=== PATIENT | female | born 1940 | race Caucasian/White ===

== ENCOUNTER 2017-10-10 18:19 | Emergency (ER) | payer MEDICARE ==
[2017-10-10] MEDS ORDERED: DIPH,PERTUS(ACELL)TETVAC-LF 0.5 ML VIAL IM ONE (19:20)
[2017-10-10] MEDS ORDERED: CEPHALEXIN 500 MG CAP PO STA (20:03)
--- NOTE | 2017-10-10 20:08 | ED ---
Wound/Laceration HPI - General Chief Complaint: Wound/Laceration Stated Complaint: Dog scratch Time Seen by Provider: 10/10/17 18:36 Source: patient, RN notes reviewed Mode of arrival: wheelchair Limitations: no limitations - History of Present Illness Initial Comments: This is a 77-year-old female who presents to the emergency department with chief complaint of dog scratch. Patient states that she was sitting in her recliner when her dog got excited and jumped up onto her. She states that when he jumped up, his nail scratched her right lower leg. She states that her dog is fully vaccinated. She denies any other injuries or trauma. States that she does not believe she is up-to-date with her tetanus vaccination. Denies fever, chills, chest pain, shortness of breath, abdominal pain, nausea or vomiting, numbness or tingling, headache or vision changes. - Related Data Previous Rx's Medication Instructions Recorded Cephalexin [Keflex] 500 mg PO Q12HR #20 cap 10/10/17 Allergies Allergy/AdvReac Type Severity Reaction Status Date / Time clavulanic acid Allergy Unknown Verified 10/10/17 18:46 metformin Allergy Unknown Verified 10/10/17 18:46 NSAIDS (Non-Steroidal Allergy Unknown Verified 10/10/17 18:46 Anti-Inflamma Penicillins Allergy Unknown Verified 10/10/17 18:46 Quinolones Allergy Unknown Verified 10/10/17 18:46 Review of Systems ROS Statement: Those systems with pertinent positive or pertinent negative responses have been documented in the HPI. ROS Other: All systems not noted in ROS Statement are negative. Past Medical History Past Medical History: Heart Failure, COPD, Diabetes Mellitus, Hypertension, Sleep Apnea/CPAP/BIPAP History of Any Multi-Drug Resistant Organisms: None Reported Past Surgical History: Back Surgery, Heart Catheterization With Stent, Joint Replacement, Orthopedic Surgery Additional Past Surgical History / Comment(s): bilateral hip replacement, right knee replacement, two back surgeries, Past Psychological History: No Psychological Hx Reported Smoking Status: Former smoker Past Alcohol Use History: Occasional Past Drug Use History: None Reported General Exam - General Exam Comments Initial Comments: General: Awake and alert, well-developed; in no apparent distress. HEENT: Head atraumatic, normocephalic. Pupils are equal, round and reactive to light. Extraocular movements intact. Oropharynx moist without erythema or exudate. Neck: Supple. Normal ROM. Cardiovascular: Regular rate and rhythm. No murmurs, rubs or gallops. Chest symmetrical. Respiratory: Lungs clear to auscultation bilaterally. No wheezes, rales or rhonchi. Normal respiratory effort with no use of accessory muscles. Musculoskeletal: Normal range of motion of right lower extremity. Approximately 9 cm [id number] laceration to the medial aspect of the right distal arredondo. Sensation is intact. Bleeding is controlled. Pedal pulses are 2+ equal and palpable bilaterally. Skin: Dailey, warm and dry without rashes. Neurological: Alert and oriented x3. CN II-XII grossly intact. Speech is fluent and answers are appropriate. No focal neuro deficits. Psychiatric: Normal mood and affect. No overt signs of depression or anxiety noted. Limitations: no limitations Course Vital Signs 10/10/17 18:25 Temperature 97.3 F L Pulse Rate 61 Respiratory 20 Rate Blood Pressure 143/63 O2 Sat by Pulse 95 Oximetry Procedures - Laceration Laceration #1 Consent Obtained: verbal consent Indication: laceration Site: lower extremity (right medial distal arredondo) Size (cm): 9 Description: flap Depth: simple, single layer Anesthetic Used: lidocaine 1% Anesthesia Technique: local infiltration Amount (mls): 8 Pre-repair: wound explored, irrigated extensively, deep structures intact Type of Sutures: nylon Size of Sutures: 4-0 Number of Sutures: 11 Technique: simple, interrupted (10), horizontal mattress (10) Patient Tolerated Procedure: well, no complications Medical Decision Making - Medical Decision Making This is a 77-year-old female who presented to the emergency department with chief complaint of right lower extremity injury caused by a dog scratch. Patient states that her dog got excited and jumped up on her at approximately 5: 30 this evening. His nail scratched her right arredondo and patient sustained an approximately 9 cm laceration. Bleeding is controlled. 11 sutures were placed and patient tolerated well without complication. This case was discussed with attending physician, Dr. Reno who also evaluated the patient. Patient will be started on Keflex antibiotics. She was made up-to-date with her tetanus vaccination. Recommended removal of sutures in 14 days and to keep the wound clean, dry and covered. Patient is in agreement with plan and voices understanding. She is in no acute distress and will be discharged home at this time. All questions answered. Disposition Clinical Impression: Dog scratch, Laceration of right lower extremity Disposition: HOME SELF-CARE Condition: Good Instructions: Laceration (ED), Care For Your Stitches (ED) Additional Instructions: Please have sutures removed in 2 weeks. Please keep wound clean, dry and covered. Please take medications as prescribed. Please follow up with primary care provider within 1-2 days. Return to emergency department if symptoms should worsen or any concerns arise. Prescriptions: Cephalexin [Keflex] 500 mg PO Q12HR #20 cap Is patient prescribed a controlled substance at d/c from ED?: No Referrals: Katlin Ruffin MD [Primary Care Provider] - 1-2 days Time of Disposition: 20:05
[2017-10-10 20:18] VITALS: BP 130/83; PULSE 69; RESP 18; TEMP 98
== END 2017-10-10 20:17 | disposition home or self-care (01) ==
LOC: EC 18:19
DX: S81.811A Laceration without foreign body, right lower leg, initial encounter (principal); G47.30 Sleep apnea, unspecified; Z99.89 Dependence on other enabling machines and devices; Z23 Encounter for immunization; Z87.891 Personal history of nicotine dependence; Z96.643 Presence of artificial hip joint, bilateral; Z96.651 Presence of right artificial knee joint; Z88.0 Allergy status to penicillin; Z88.1 Allergy status to other antibiotic agents; Z88.6 Allergy status to analgesic agent; Z88.8 Allergy status to other drugs, medicaments and biological substances; W54.1XXA Struck by dog, initial encounter
CPT/HCPCS: 12004; 90471; 90715; 99282

== ENCOUNTER → 2017-10-26 | Outpatient (CLI) | payer MEDICARE ==
--- NOTE | 2017-10-27 08:34 | CT ---
EXAMINATION TYPE: CT chest wo con DATE OF EXAM: 10/26/2017 COMPARISON: NONE HISTORY: Shortness of breath and cough. CT DLP: 721 mGycm, Automated exposure control for dose reduction was used. CONTRAST: Performed injected with 0 mL of Isovue 300. TECHNIQUE: Axial images were obtained at 5 mm thick sections. Reconstructed images are reviewed on [employer] computer in the coronal plane. FINDINGS: Portion of the thyroid visualized is normal. Some pneumonitis changes within the lingula. Recommend follow-up CT chest in 6 months. Some linear op acity is through the anterior lingula. Suspicious consolidations or masses are not otherwise identifi ed. A small 0.3 cm calcified granulomas in the posterior right midlung. Series 4 image 38. No enlarged mediastinal or hilar adenopathy is evident. The ascending aorta diameter at the level o f the main pulmonary artery is 3.4 cm. The main pulmonary artery diameter at the bifurcation is 2.7 cm. Coronary artery calcification is present. Limited CT sections are obtained through the upper abdomen. Abdomen is essentially unremarkable. Note is made of some calcified granuloma within the spleen. Pancreas atrophy to mild degree may be presen t. Vascular calcification is within the kidneys. There may be a nonobstructing 0.5 cm mid right renal stone. IMPRESSIONS: 1. Pneumonitis change within the lingula. Follow-up chest CT in 6 months is recommended. 2. Small suspected granuloma posterior right lung.
== END | disposition home or self-care (01) ==
LOC: RADCTMAIN 18:22
PROVIDERS: ATTEND Internal Medicine Pulmonary Disease
DX: J18.9 Pneumonia, unspecified organism (principal)
CPT/HCPCS: 71250

== ENCOUNTER 2018-02-17 10:13 | Emergency (ER) | payer MEDICARE ==
[2018-02-17 10:23] VITALS: TEMP 98
[2018-02-17] MEDS ORDERED: ALBUTEROL NEBULIZED 2.5 MG/3 ML INHALATION STA (10:32)
[2018-02-17] MEDS ORDERED: IPRATROPIUM 0.5 MG/2.5 ML NEBU INHALATION STA (10:32)
[2018-02-17] MEDS ORDERED: methylPREDNISolone SOD SUCCI 125 MG/2 ML VIAL IV STA (10:32)
--- NOTE | 2018-02-17 10:35 | ED ---
General Adult HPI - General Chief complaint: Shortness of Breath Stated complaint: SOB Time Seen by Provider: 02/17/18 10:26 Source: patient, RN notes reviewed, old records reviewed Mode of arrival: ambulatory Limitations: no limitations - History of Present Illness Initial comments: 78 yo female presenting for evaluation of cough and dyspnea. Patient has history of both COPD and congestive heart failure. She states for proximally the past one week she has had worsening cough productive of white and yellow sputum. Denies significant central chest pain. Denies fever or chills. She was scheduled to see her rubber off on Tuesday but was unable to make this appointment. She states her symptoms have steadily worsened over the past week. Denies lower extremity pain or swelling. Denies abdominal pain nausea or vomiting. - Related Data Home Medications Medication Instructions Recorded Confirmed ALPRAZolam [Xanax] 0.5 mg PO BID PRN 02/17/18 02/17/18 Aclidinium [place] [Tudorza 1 puff INHALATION RT-BID 02/17/18 02/17/18 Pressair] Albuterol Inhaler [Ventolin Hfa 2 puff INHALATION RT-Q6H PRN 02/17/18 02/17/18 Inhaler] Budesonide/Formoterol Fumarate 2 puff INHALATION RT-BID 02/17/18 02/17/18 [Symbicort 160-4.5 Mcg Inhaler] Clopidogrel [Plavix] 75 mg PO DAILY 02/17/18 02/17/18 Furosemide [Lasix] 40 mg PO BID 02/17/18 02/17/18 Lisinopril [Zestril] 10 mg PO DAILY 02/17/18 02/17/18 Montelukast [Singulair] 10 mg PO HS 02/17/18 02/17/18 Omeprazole 20 mg PO DAILY 02/17/18 02/17/18 Rosuvastatin Calcium [Crestor] 40 mg PO DAILY 02/17/18 02/17/18 amLODIPine [Norvasc] 5 mg PO HS 02/17/18 02/17/18 Previous Rx's Medication Instructions Recorded Azithromycin [Zithromax Z-pack] 0 mg PO DIRECTED #6 tab 02/17/18 predniSONE 50 mg PO DAILY #5 tab 02/17/18 Allergies Allergy/AdvReac Type Severity Reaction Status Date / Time clavulanic acid Allergy Unknown Verified 02/17/18 10:23 metformin Allergy Unknown Verified 02/17/18 10:23 NSAIDS (Non-Steroidal Allergy Unknown Verified 02/17/18 10:23 Anti-Inflamma Penicillins Allergy Unknown Verified 02/17/18 10:23 Quinolones Allergy Unknown Verified 02/17/18 10:23 Review of Systems ROS Statement: Those systems with pertinent positive or pertinent negative responses have been documented in the HPI. ROS Other: All systems not noted in ROS Statement are negative. Past Medical History Past Medical History: Heart Failure, COPD, Diabetes Mellitus, Hypertension, Sleep Apnea/CPAP/BIPAP History of Any Multi-Drug Resistant Organisms: None Reported Past Surgical History: Back Surgery, Heart Catheterization With Stent, Joint Replacement, Orthopedic Surgery Additional Past Surgical History / Comment(s): bilateral hip replacement, right knee replacement, two back surgeries, Past Psychological History: Anxiety Smoking Status: Former smoker Past Alcohol Use History: Occasional Past Drug Use History: None Reported General Exam Limitations: no limitations General appearance: alert, in no apparent distress Head exam: Present: atraumatic, normocephalic Eye exam: Present: normal appearance, PERRL Neck exam: Present: normal inspection Respiratory exam: Present: respiratory distress (mild), wheezes, decreased breath sounds, prolonged expiratory Cardiovascular Exam: Present: regular rate, normal rhythm GI/Abdominal exam: Present: soft. Absent: distended, tenderness Extremities exam: Present: normal inspection, normal capillary refill. Absent: pedal edema, calf tenderness Neurological exam: Present: alert, oriented X3, CN II-XII intact. Absent: motor sensory deficit Psychiatric exam: Present: normal affect, normal mood Skin exam: Present: warm, dry, intact. Absent: cyanosis, diaphoretic Course Vital Signs 02/17/18 02/17/18 02/17/18 10:20 11:08 11:23 Temperature 98 F Pulse Rate 63 66 68 Respiratory 22 Rate Blood Pressure 131/67 O2 Sat by Pulse 92 L Oximetry 02/17/18 12:23 Temperature Pulse Rate 87 Respiratory 20 Rate Blood Pressure 142/77 O2 Sat by Pulse 96 Oximetry - Reevaluation(s) Reevaluation #1: 02/17/18 12:32 On reevaluation, patient states she is significantly better. She is eager for discharge. EKG Findings - EKG Comments: EKG Findings:: EKG: Sinus rhythm with sinus arrhythmia no ST segment elevation, nonspecific ST segment depression in the lateral precordium, T waves are upright rate of 74, FL interval 152, QRS duration 76, QTC 468 Medical Decision Making - Medical Decision Making 78 yo female presenting with cough and dyspnea. Patient's symptoms have been progressive over one week. Workup in the emergency department reveals normal CBC, normal CMP, troponin and BNP are negative. Chest x-ray is negative for focal pneumonia. On reevaluation, patient is feeling better, she is eager for discharge. She is offered observation for continued treatment of COPD exacerbation. She declines. She prefers outpatient treatment and will return with worsening or changing symptoms. - Lab Data Result diagrams: 02/17/18 10:50 02/17/18 10:50 Lab Results 02/17/18 02/17/18 02/17/18 Range/Units 10:50 10:50 10:50 WBC 4.5 (3.8-10.6) k/uL RBC 5.14 (3.80-5.40) m/uL Hgb 15.1 (11.4-16.0) gm/dL Hct 46.5 H (34.0-46.0) % MCV 90.5 (80.0-100.0) fL MCH 29.4 (25.0-35.0) pg MCHC 32.5 (31.0-37.0) g/dL RDW 14.2 (11.5-15.5) % Plt Count 320 (150-450) k/uL Neutrophils % 68 % Lymphocytes % 18 % Monocytes % 5 % Eosinophils % 5 % Basophils % 1 % Neutrophils # 3.0 (1.3-7.7) k/uL Lymphocytes # 0.8 L (1.0-4.8) k/uL Monocytes # 0.2 (0-1.0) k/uL Eosinophils # 0.2 (0-0.7) k/uL Basophils # 0.0 (0-0.2) k/uL PT (9.0-12.0) sec INR (<1.2) APTT (22.0-30.0) sec Sodium 142 (137-145) mmol/L Potassium 3.7 (3.5-5.1) mmol/L Chloride 106 (98-107) mmol/L Carbon Dioxide 24 (22-30) mmol/L Anion Gap 12 mmol/L BUN 10 (7-17) mg/dL Creatinine 0.81 (0.52-1.04) mg/dL Est GFR (CKD-EPI)AfAm 82 (>60 ml/min/1.73 sqM) Est GFR (CKD-EPI)NonAf 71 (>60 ml/min/1.73 sqM) Glucose 92 (74-99) mg/dL Calcium 9.0 (8.4-10.2) mg/dL Magnesium 2.1 (1.6-2.3) mg/dL Total Bilirubin 0.6 (0.2-1.3) mg/dL AST 20 (14-36) U/L ALT 10 (9-52) U/L Alkaline Phosphatase 99 (38-126) U/L Total Creatine Kinase 73 (30-135) U/L CK-MB (CK-2) 0.9 (0.0-2.4) ng/mL CK-MB (CK-2) Rel Index 1.2 Troponin I <0.012 (0.000-0.034) ng/mL NT-Pro-B Natriuret Pep pg/mL Total Protein 6.8 (6.3-8.2) g/dL Albumin 4.0 (3.5-5.0) g/dL 02/17/18 02/17/18 Range/Units 10:50 11:05 WBC (3.8-10.6) k/uL RBC (3.80-5.40) m/uL Hgb (11.4-16.0) gm/dL Hct (34.0-46.0) % MCV (80.0-100.0) fL MCH (25.0-35.0) pg MCHC (31.0-37.0) g/dL RDW (11.5-15.5) % Plt Count (150-450) k/uL Neutrophils % % Lymphocytes % % Monocytes % % Eosinophils % % Basophils % % Neutrophils # (1.3-7.7) k/uL Lymphocytes # (1.0-4.8) k/uL Monocytes # (0-1.0) k/uL Eosinophils # (0-0.7) k/uL Basophils # (0-0.2) k/uL PT 9.9 (9.0-12.0) sec INR 1.0 (<1.2) APTT 23.4 (22.0-30.0) sec Sodium (137-145) mmol/L Potassium (3.5-5.1) mmol/L Chloride (98-107) mmol/L Carbon Dioxide (22-30) mmol/L Anion Gap mmol/L BUN (7-17) mg/dL Creatinine (0.52-1.04) mg/dL Est GFR (CKD-EPI)AfAm (>60 ml/min/1.73 sqM) Est GFR (CKD-EPI)NonAf (>60 ml/min/1.73 sqM) Glucose (74-99) mg/dL Calcium (8.4-10.2) mg/dL Magnesium (1.6-2.3) mg/dL Total Bilirubin (0.2-1.3) mg/dL AST (14-36) U/L ALT (9-52) U/L Alkaline Phosphatase (38-126) U/L Total Creatine Kinase (30-135) U/L CK-MB (CK-2) (0.0-2.4) ng/mL CK-MB (CK-2) Rel Index Troponin I (0.000-0.034) ng/mL NT-Pro-B Natriuret Pep 126 pg/mL Total Protein (6.3-8.2) g/dL Albumin (3.5-5.0) g/dL Disposition Clinical Impression: Acute exacerbation of chronic obstructive airways disease Disposition: ADMITTED IP TO THIS HOSP Condition: Stable Instructions: COPD (Chronic Obstructive Pulmonary Disease) (ED) Prescriptions: Azithromycin [Zithromax Z-pack] 0 mg PO DIRECTED #6 tab predniSONE 50 mg PO DAILY #5 tab Is patient prescribed a controlled substance at d/c from ED?: No Referrals: Katlin Ruffin MD [Primary Care Provider] - 1-2 days Kevin Strong MD [STAFF PHYSICIAN] - 1-2 days Time of Disposition: 12:34
[2018-02-17 11:12] LABS: WBC 4.5 k/uL (3.8-10.6)
[2018-02-17 11:13] LABS: Basophils % (A) 1 %; Eosinophils # (A) 0.2 k/uL (0-0.7); Eosinophils % (A) 5 %; HCT 46.5 % (34.0-46.0); HGB 15.1 gm/dL (11.4-16.0); Lymphocytes # (A) 0.8 k/uL (1.0-4.8); Lymphocytes % (A) 18 %; MCH 29.4 pg (25.0-35.0); MCHC 32.5 g/dL (31.0-37.0); MCV 90.5 fL (80.0-100.0); Monocytes # (A) 0.2 k/uL (0-1.0); Monocytes % (A) 5 %; Neutrophils % (A) 68 %; Platelet Count 320 k/uL (150-450); RBC 5.14 m/uL (3.80-5.40); RDW 14.2 % (11.5-15.5)
[2018-02-17 11:23] LABS: Magnesium 2.1 mg/dL (1.6-2.3); Potassium 3.7 mmol/L (3.5-5.1); Total Bilirubin 0.6 mg/dL (0.2-1.3); Total Protein 6.8 g/dL (6.3-8.2)
[2018-02-17 11:38] LABS: Creatine Kinase 73 U/L (30-135)
[2018-02-17 11:51] LABS: Creatine Kinase MB 0.9 ng/mL (0.0-2.4); Troponin I <0.012 ng/mL (0.000-0.034)
[2018-02-17 12:04] LABS: Partial Thromboplastin Time 23.4 sec (22.0-30.0); Prothrombin Time 9.9 sec (9.0-12.0)
--- NOTE | 2018-02-17 12:12 | XR ---
EXAMINATION TYPE: XR chest 2V DATE OF EXAM: 02/17/2018 COMPARISON: NONE HISTORY: Shortness of breath TECHNIQUE: Frontal and lateral views of the chest are obtained. FINDINGS: Scattered senescent parenchymal changes noted. Hyperinflation compatible with COPD. No evidence for infiltrate. No evidence for atelectasis. Heart size is stable. Mediastinal structures are stable and grossly unremarkable. No evidence for hilar prominence. Degenerative changes dorsal spine. IMPRESSION: 1. No evidence for acute pulmonary disease.
[2018-02-17 12:24] VITALS: BP 142/77; PULSE 87; RESP 20
== END 2018-02-17 12:45 | disposition other institution (70) ==
LOC: EC 10:13
DX: J44.1 Chronic obstructive pulmonary disease with (acute) exacerbation (principal); I11.0 Hypertensive heart disease with heart failure; I50.9 Heart failure, unspecified; G47.30 Sleep apnea, unspecified; Z99.89 Dependence on other enabling machines and devices; Z95.5 Presence of coronary angioplasty implant and graft; Z96.643 Presence of artificial hip joint, bilateral; Z96.651 Presence of right artificial knee joint; Z87.891 Personal history of nicotine dependence; Z79.51 Long term (current) use of inhaled steroids; Z79.02 Long term (current) use of antithrombotics/antiplatelets; Z79.899 Other long term (current) drug therapy; Z88.0 Allergy status to penicillin; Z88.8 Allergy status to other drugs, medicaments and biological substances; Z88.6 Allergy status to analgesic agent; Z88.1 Allergy status to other antibiotic agents; Z53.29 Procedure and treatment not carried out because of patient's decision for other reasons
CPT/HCPCS: 36415; 94640; 93005; 83880; 80053; 82550; 82553; 83735; 84484; 85025; 85610; 85730; 87040; 71046; 99285; 96374; J2930

== ENCOUNTER 2018-02-23 18:42 | Observation (INO) | payer MEDICARE ==
--- NOTE | 2018-02-23 19:25 | ED ---
General Adult HPI - General Source: patient, RN notes reviewed Mode of arrival: wheelchair Limitations: no limitations <Dawson Guajardo - Last Filed: 02/23/18 19:54> <Murray Ray - Last Filed: 02/23/18 20:57> - General Chief complaint: Recheck/Abnormal Lab/Rx Stated complaint: poss med reaction Time Seen by Provider: 02/23/18 19:14 - History of Present Illness Initial comments: This a 78-year-old female presents emergency Department with multiple complaints. Patient states that she was in the emergency department last week and was diagnosed with a COPD exacerbation. She states that she was placed on prednisone 50 mg daily along was at the [facility]. She states that she felt very off and felt that she is having a reaction to the high-dose of prednisone so she followed up with claim specialist and they lowered her to 10 mg twice a day. She states today that she's developed increasing shortness of breath, left- sided chest pressure and heaviness. She states that she diarrhea GFR prior arrival she still has some shortness of breath. She went of lower extremity swelling. She did take a Lasix as directed. Patient states she is very dizzy. Patient denies any fever, chills, nausea, vomiting. Patient states her claim specialist is Dr. Strong. (Dawson Guajardo) - Related Data Home Medications Medication Instructions Recorded Confirmed Albuterol Inhaler [Ventolin Hfa 2 puff INHALATION RT-Q6H PRN 02/17/18 02/23/18 Inhaler] Clopidogrel [Plavix] 75 mg PO DAILY 02/17/18 02/23/18 Furosemide [Lasix] 40 mg PO BID 02/17/18 02/23/18 Lisinopril [Zestril] 10 mg PO DAILY 02/17/18 02/23/18 Omeprazole 20 mg PO DAILY 02/17/18 02/23/18 Rosuvastatin Calcium [Crestor] 40 mg PO DAILY 02/17/18 02/23/18 amLODIPine [Norvasc] 5 mg PO HS 02/17/18 02/23/18 Budesonide [Pulmicort] 0.5 mg INHALATION RT-BID 02/23/18 02/23/18 Ipratropium-Albuterol Nebulize 3 ml INHALATION RT-QID PRN 02/23/18 02/23/18 [Duoneb 0.5 mg-3 mg/3 ml Soln] Allergies Allergy/AdvReac Type Severity Reaction Status Date / Time clavulanic acid Allergy Unknown Verified 02/23/18 20:09 diclofenac [From Voltaren] Allergy Unknown Verified 02/23/18 20:09 isosorbide [From Imdur] Allergy Unknown Verified 02/23/18 20:09 levofloxacin [From Levaquin] Allergy Swelling Verified 02/23/18 20:09 metformin Allergy Unknown Verified 02/23/18 20:09 NSAIDS (Non-Steroidal Allergy Unknown Verified 02/23/18 20:09 Anti-Inflamma Penicillins Allergy Unknown Verified 02/23/18 20:09 Quinolones Allergy Unknown Verified 02/23/18 20:09 tramadol [From Ultram] Allergy Unknown Verified 02/23/18 20:09 amoxicillin [From Augmentin] AdvReac Headache Verified 02/23/18 20:09 aspirin AdvReac Headache Verified 02/23/18 20:09 gabapentin AdvReac Headache Verified 02/23/18 20:09 meloxicam [From Mobic] AdvReac Headache Verified 02/23/18 20:09 nabumetone [From Relafen] AdvReac Headache Verified 02/23/18 20:09 nickel AdvReac Headache Verified 02/23/18 20:09 ranolazine [From Ranexa] AdvReac Headache Verified 02/23/18 20:09 Review of Systems ROS Other: All systems not noted in ROS Statement are negative. <Dawson Guajardo - Last Filed: 02/23/18 19:54> ROS Other: All systems not noted in ROS Statement are negative. <Murray Ray - Last Filed: 02/23/18 20:57> ROS Statement: Those systems with pertinent positive or pertinent negative responses have been documented in the HPI. Past Medical History Past Medical History: Heart Failure, COPD, Diabetes Mellitus, Hypertension, Sleep Apnea/CPAP/BIPAP History of Any Multi-Drug Resistant Organisms: None Reported Past Surgical History: Back Surgery, Heart Catheterization With Stent, Joint Replacement, Orthopedic Surgery Additional Past Surgical History / Comment(s): bilateral hip replacement, right knee replacement, two back surgeries, Past Psychological History: Anxiety Smoking Status: Former smoker Past Alcohol Use History: Occasional Past Drug Use History: None Reported <Dawson Guajardo - Last Filed: 02/23/18 19:54> General Exam Limitations: no limitations General appearance: alert, in no apparent distress Head exam: Present: atraumatic, normocephalic, normal inspection Eye exam: Present: normal appearance, PERRL, EOMI. Absent: scleral icterus, conjunctival injection, periorbital swelling Neck exam: Present: normal inspection, full ROM. Absent: tenderness, meningismus, lymphadenopathy Respiratory exam: Present: wheezes (primarily on the left). Absent: respiratory distress, rales, rhonchi, stridor Cardiovascular Exam: Present: regular rate, normal rhythm, normal heart sounds. Absent: systolic murmur, diastolic murmur, rubs, gallop, clicks GI/Abdominal exam: Present: soft, normal bowel sounds. Absent: distended, tenderness, guarding, rebound, rigid Neurological exam: Present: alert, oriented X3, CN II-XII intact Skin exam: Present: warm, dry, intact, normal color. Absent: rash <Dawson Guajardo - Last Filed: 02/23/18 19:54> Vital Signs 02/23/18 02/23/18 02/23/18 18:52 20:05 20:30 Temperature 98 F Pulse Rate 90 88 92 Respiratory 20 Rate Blood Pressure 134/81 O2 Sat by Pulse 96 Oximetry EKG Findings - EKG Comments: EKG Findings:: EKG performed at 19:40 normal sinus rhythm with minimal ST depression noted in the V4 through V6 there is no acute changes from prior EKG rate of 76 [place] 152 QRS 80 QT/QTC 390/438 <Dawson Guajardo - Last Filed: 02/23/18 19:54> Medical Decision Making <Dawson Guajardo - Last Filed: 02/23/18 19:54> - Lab Data Result diagrams: 02/23/18 19:35 02/23/18 19:35 <Murray Ray - Last Filed: 02/23/18 20:57> - Medical Decision Making Chest x-ray shows no acute abnormality. Patient continued to have intermittent chest heaviness and shortness of breath so I spoke with Dr. Chiang the patient will be admitted I will consult cardiology and pulmonary. Pulmonary consult secondary to the fact that the patient believes his steroids are causing her to be extremely jittery and she wanted to speak with him about what to do about the steroids. (Murray Ray) - Lab Data Lab Results 02/23/18 02/23/18 02/23/18 Range/Units 19:35 19:35 19:35 WBC 8.7 (3.8-10.6) k/uL RBC 5.31 (3.80-5.40) m/uL Hgb 15.3 (11.4-16.0) gm/dL Hct 48.5 H (34.0-46.0) % MCV 91.4 (80.0-100.0) fL MCH 28.8 (25.0-35.0) pg MCHC 31.5 (31.0-37.0) g/dL RDW 14.1 (11.5-15.5) % Plt Count 431 (150-450) k/uL Neutrophils % 88 % Lymphocytes % 7 % Monocytes % 4 % Eosinophils % 0 % Basophils % 0 % Neutrophils # 7.6 (1.3-7.7) k/uL Lymphocytes # 0.6 L (1.0-4.8) k/uL Monocytes # 0.4 (0-1.0) k/uL Eosinophils # 0.0 (0-0.7) k/uL Basophils # 0.0 (0-0.2) k/uL PT (9.0-12.0) sec INR (<1.2) APTT (22.0-30.0) sec Sodium 142 (137-145) mmol/L Potassium 3.5 (3.5-5.1) mmol/L Chloride 106 (98-107) mmol/L Carbon Dioxide 28 (22-30) mmol/L Anion Gap 8 mmol/L BUN 16 (7-17) mg/dL Creatinine 0.89 (0.52-1.04) mg/dL Est GFR (CKD-EPI)AfAm 73 (>60 ml/min/1.73 sqM) Est GFR (CKD-EPI)NonAf 63 (>60 ml/min/1.73 sqM) Glucose 137 H (74-99) mg/dL POC Glucose (mg/dL) (75-99) mg/dL POC Glu Distribution System Operator ID Calcium 9.2 (8.4-10.2) mg/dL Magnesium 2.3 (1.6-2.3) mg/dL Total Bilirubin 0.4 (0.2-1.3) mg/dL AST 21 (14-36) U/L ALT 26 (9-52) U/L Alkaline Phosphatase 102 (38-126) U/L Total Creatine Kinase 47 (30-135) U/L CK-MB (CK-2) 1.0 (0.0-2.4) ng/mL CK-MB (CK-2) Rel Index 2.1 Troponin I <0.012 (0.000-0.034) ng/mL NT-Pro-B Natriuret Pep pg/mL Total Protein 6.5 (6.3-8.2) g/dL Albumin 4.0 (3.5-5.0) g/dL Urine Color Urine Appearance (Clear) Urine pH (5.0-8.0) Ur Specific [place] (1.001-1.035) Urine Protein (Negative) Urine Glucose (UA) (Negative) Urine Ketones (Negative) Urine Blood (Negative) Urine Nitrite (Negative) Urine Bilirubin (Negative) Urine Urobilinogen (<2.0) mg/dL Ur Leukocyte Esterase (Negative) Urine WBC (0-5) /hpf Ur Squamous Epith Cells (0-4) /hpf Hyaline Casts (0-2) /lpf Urine Mucus (None) /hpf 02/23/18 02/23/18 02/23/18 Range/Units 19:35 19:35 19:35 WBC (3.8-10.6) k/uL RBC (3.80-5.40) m/uL Hgb (11.4-16.0) gm/dL Hct (34.0-46.0) % MCV (80.0-100.0) fL MCH (25.0-35.0) pg MCHC (31.0-37.0) g/dL RDW (11.5-15.5) % Plt Count (150-450) k/uL Neutrophils % % Lymphocytes % % Monocytes % % Eosinophils % % Basophils % % Neutrophils # (1.3-7.7) k/uL Lymphocytes # (1.0-4.8) k/uL Monocytes # (0-1.0) k/uL Eosinophils # (0-0.7) k/uL Basophils # (0-0.2) k/uL PT 10.0 (9.0-12.0) sec INR 1.0 (<1.2) APTT 22.4 (22.0-30.0) sec Sodium (137-145) mmol/L Potassium (3.5-5.1) mmol/L Chloride (98-107) mmol/L Carbon Dioxide (22-30) mmol/L Anion Gap mmol/L BUN (7-17) mg/dL Creatinine (0.52-1.04) mg/dL Est GFR (CKD-EPI)AfAm (>60 ml/min/1.73 sqM) Est GFR (CKD-EPI)NonAf (>60 ml/min/1.73 sqM) Glucose (74-99) mg/dL POC Glucose (mg/dL) (75-99) mg/dL POC Glu Distribution System Operator ID Calcium (8.4-10.2) mg/dL Magnesium (1.6-2.3) mg/dL Total Bilirubin (0.2-1.3) mg/dL AST (14-36) U/L ALT (9-52) U/L Alkaline Phosphatase (38-126) U/L Total Creatine Kinase (30-135) U/L CK-MB (CK-2) (0.0-2.4) ng/mL CK-MB (CK-2) Rel Index Troponin I (0.000-0.034) ng/mL NT-Pro-B Natriuret Pep 207 pg/mL Total Protein (6.3-8.2) g/dL Albumin (3.5-5.0) g/dL Urine Color Colorless Urine Appearance Clear (Clear) Urine pH 6.5 (5.0-8.0) Ur Specific [place] 1.004 (1.001-1.035) Urine Protein Negative (Negative) Urine Glucose (UA) Negative (Negative) Urine Ketones Negative (Negative) Urine Blood Negative (Negative) Urine Nitrite Negative (Negative) Urine Bilirubin Negative (Negative) Urine Urobilinogen <2.0 (<2.0) mg/dL Ur Leukocyte Esterase Small H (Negative) Urine WBC 1 (0-5) /hpf Ur Squamous Epith Cells <1 (0-4) /hpf Hyaline Casts 1 (0-2) /lpf Urine Mucus Rare H (None) /hpf 02/23/18 Range/Units 19:38 WBC (3.8-10.6) k/uL RBC (3.80-5.40) m/uL Hgb (11.4-16.0) gm/dL Hct (34.0-46.0) % MCV (80.0-100.0) fL MCH (25.0-35.0) pg MCHC (31.0-37.0) g/dL RDW (11.5-15.5) % Plt Count (150-450) k/uL Neutrophils % % Lymphocytes % % Monocytes % % Eosinophils % % Basophils % % Neutrophils # (1.3-7.7) k/uL Lymphocytes # (1.0-4.8) k/uL Monocytes # (0-1.0) k/uL Eosinophils # (0-0.7) k/uL Basophils # (0-0.2) k/uL PT (9.0-12.0) sec INR (<1.2) APTT (22.0-30.0) sec Sodium (137-145) mmol/L Potassium (3.5-5.1) mmol/L Chloride (98-107) mmol/L Carbon Dioxide (22-30) mmol/L Anion Gap mmol/L BUN (7-17) mg/dL Creatinine (0.52-1.04) mg/dL Est GFR (CKD-EPI)AfAm (>60 ml/min/1.73 sqM) Est GFR (CKD-EPI)NonAf (>60 ml/min/1.73 sqM) Glucose (74-99) mg/dL POC Glucose (mg/dL) 131 H (75-99) mg/dL POC Glu Distribution System Operator ID Amilcar Lewis Calcium (8.4-10.2) mg/dL Magnesium (1.6-2.3) mg/dL Total Bilirubin (0.2-1.3) mg/dL AST (14-36) U/L ALT (9-52) U/L Alkaline Phosphatase (38-126) U/L Total Creatine Kinase (30-135) U/L CK-MB (CK-2) (0.0-2.4) ng/mL CK-MB (CK-2) Rel Index Troponin I (0.000-0.034) ng/mL NT-Pro-B Natriuret Pep pg/mL Total Protein (6.3-8.2) g/dL Albumin (3.5-5.0) g/dL Urine Color Urine Appearance (Clear) Urine pH (5.0-8.0) Ur Specific [place] (1.001-1.035) Urine Protein (Negative) Urine Glucose (UA) (Negative) Urine Ketones (Negative) Urine Blood (Negative) Urine Nitrite (Negative) Urine Bilirubin (Negative) Urine Urobilinogen (<2.0) mg/dL Ur Leukocyte Esterase (Negative) Urine WBC (0-5) /hpf Ur Squamous Epith Cells (0-4) /hpf Hyaline Casts (0-2) /lpf Urine Mucus (None) /hpf Disposition <Dawson Guajardo - Last Filed: 02/23/18 19:54> Time of Disposition: 20:57 <Murray Ray - Last Filed: 02/23/18 20:57> Clinical Impression: Chest pain, Dizziness, Acute exacerbation of chronic obstructive airways disease Disposition: ADMITTED IP TO THIS HOSP Referrals: Katlin Ruffin MD [Primary Care Provider] - 1-2 days
[2018-02-23] MEDS ORDERED: methylPREDNISolone SOD SUCCI 125 MG/2 ML VIAL IV STA (19:53)
[2018-02-23] MEDS ORDERED: IPRATROPIUM-ALBUTEROL 3 ML NEB INHALATION STA (19:53)
[2018-02-23 20:01] LABS: Basophils % (A) 0 %; Eosinophils % (A) 0 %; HCT 48.5 % (34.0-46.0); HGB 15.3 gm/dL (11.4-16.0); Lymphocytes # (A) 0.6 k/uL (1.0-4.8); Lymphocytes % (A) 7 %; MCH 28.8 pg (25.0-35.0); MCHC 31.5 g/dL (31.0-37.0); MCV 91.4 fL (80.0-100.0); Mean Platelet Volume 6.9; Monocytes # (A) 0.4 k/uL (0-1.0); Monocytes % (A) 4 %; Neutrophils # (A) 7.6 k/uL (1.3-7.7); Neutrophils % (A) 88 %; Platelet Count 431 k/uL (150-450); RBC 5.31 m/uL (3.80-5.40); RDW 14.1 % (11.5-15.5); WBC 8.7 k/uL (3.8-10.6)
[2018-02-23 20:06] LABS: Glucose,Whole Blood 131 mg/dL (75-99)
[2018-02-23 20:10] LABS: Appearance,Urine Clear (Clear); Bilirubin,Urine Negative (Negative); Blood,Urine Negative (Negative); Color,Urine Colorless; Glucose,Urine (UA) Negative (Negative); Hyaline Casts,Urine 1 /lpf (0-2); Ketones,Urine Negative (Negative); Leukocyte Esterase,Urine Small (Negative); Mucus,Urine Rare /hpf; Nitrite,Urine Negative (Negative); PH, Urine 6.5 (5.0-8.0); Protein,Urine Negative (Negative); Specific Gravity,Urine 1.004 (1.001-1.035); Squamous Epithelial Cell,Urine <1 /hpf (0-4); Urobilinogen,Urine <2.0 mg/dL (<2.0); WBC,Urine 1 /hpf (0-5)
[2018-02-23 20:23] LABS: Partial Thromboplastin Time 22.4 sec (22.0-30.0)
--- NOTE | 2018-02-23 20:25 | XR ---
EXAMINATION TYPE: XR chest 2V DATE OF EXAM: 02/23/2018 COMPARISON: 02/17/2018 HISTORY: COPD difficulty breathing TECHNIQUE: Frontal and lateral views of the chest are obtained. FINDINGS: There is no heart failure nor confluent pneumonic infiltrate. Costophrenic angles are zhao r. Thoracic aorta is atheromatous. There is minor spurring in the thoracic spine. IMPRESSION: No active cardiopulmonary disease. Normal heart. No change.
[2018-02-23 20:38] LABS: Creatine Kinase 47 U/L (30-135)
[2018-02-23 20:40] LABS: Calcium 9.2 mg/dL (8.4-10.2); Magnesium 2.3 mg/dL (1.6-2.3); Potassium 3.5 mmol/L (3.5-5.1); Total Bilirubin 0.4 mg/dL (0.2-1.3); Total Protein 6.5 g/dL (6.3-8.2)
[2018-02-23 20:51] LABS: Troponin I <0.012 ng/mL (0.000-0.034)
[2018-02-23] MEDS ORDERED: IPRATROPIUM-ALBUTEROL 3 ML NEB INHALATION PRN (21:33)
[2018-02-23] MEDS ORDERED: amLODIPine 5 MG TAB PO SCH (21:45)
[2018-02-23 21:56] VITALS: BMI 28.5
[2018-02-23] MEDS ORDERED: LISINOPRIL 10 MG TAB PO SCH (22:15)
[2018-02-23] MEDS ORDERED: CLOPIDOGREL 75 MG TAB PO SCH (22:15)
[2018-02-23] MEDS ORDERED: ATORVASTATIN 80 MG TAB PO SCH (22:15)
[2018-02-23] MEDS ORDERED: ACETAMINOPHEN TAB 325 MG TAB PO PRN (22:33)
[2018-02-24 06:49] LABS: Glucose,Whole Blood 141 mg/dL (75-99)
[2018-02-24] MEDS ORDERED: PANTOPRAZOLE 40 MG TABLET PO SCH (07:30)
[2018-02-24] MEDS: IPRATROPIUM-ALBUTEROL 3 ML NEB INHALATION SCH ×2 (07:39→11:06)
[2018-02-24] MEDS ORDERED: BUDESONIDE 1 MG/2 ML NEBU INHALATION SCH (08:00)
[2018-02-24 08:10] VITALS: RESP 18
[2018-02-24] MEDS ORDERED: ATORVASTATIN 80 MG TAB PO SCH (09:00)
[2018-02-24] MEDS ORDERED: CLOPIDOGREL 75 MG TAB PO SCH (09:00)
[2018-02-24] MEDS ORDERED: LISINOPRIL 10 MG TAB PO SCH (09:00)
[2018-02-24] MEDS ORDERED: FUROSEMIDE 40 MG TAB PO SCH (09:00)
--- NOTE | 2018-02-24 10:30 | P.CRDCN ---
History of Present Illness History of present illness: Mrs. Geronimo is a pleasant 78-year-old female past medical history significant for coronary artery disease s/p stent placement in the circumflex artery and RCA. These were done in [place]. She recently moved here 5 months ago and has established care with Dr. CHARISSA Strong. Most recent catheterization performed in [place] 08/2016 revealed patent stents within the circumflex and RCA with mild 30% disease of the mid LAD. Most recent echo 2017 reveals preserved left ventricular systolic function with ejection fraction 55%, mild to moderate diastolic dysfunction and moderate pulmonary hypertension with RVSP 50 mmHg. She also has chronic diastolic dysfunction, hypertension, COPD, diabetes mellitus, former nicotine dependence and sleep apnea. We have been asked to see her in consultation for symptoms of chest pain. She has multiple complaints including shortness of breath, cough, left precordial chest pain and dizziness. She was diagnosed with COPD exacerbation last week in the ED and started on PO steroids 50 mg daily. She states after she started that she started feeling very dizzy, weak and off centered. She was requiring assistance with walking and using the monteor to brace herself. She denies having chest pains. She saw her airport ramp attendant Digna and the dose of steroids was decreased to 10 mg BID. Even with the lower dose she continued to feel not right. She then started developing some heaviness in the left precordial region that she describes as angina. She states she has had these symptoms of angina intermittently for the past few years since undergoing angioplasty and they typically go away on their own with no specific alleviating intervention. At the time of my exam she is seen resting comfortably in bed in no acute distress. She denies any ongoing symptoms of chest discomfort. EKG reveals sinus mechanism with diffuse nonspecific ST depression noted in the inferior, anterior and lateral leads. This is consistent with previous EKGs obtained in the hospital as well as in the office. No acute abnormalities noted. Chest x-ray is negative for acute cardiopulmonary process. Laboratory data reviewed, hemoglobin 15.3, platelets 431, sodium 142, potassium 3.5, magnesium 2.3, creatinine 0.89, and she proBNP 207, cardiac enzymes negative 2. Current cardiac medications include amlodipine 5 mg daily, rosuvastatin 40 mg daily, lisinopril 10 mg daily, Lasix 40 mg twice a day and Plavix 75 mg daily. Review of Systems At the time of my exam: CONSTITUTIONAL: Denies fever. Denies chills. EYES: Denies blurred vision. Denies vision changes. Denies eye pain. EARS, NOSE, MOUTH & THROAT: Denies headache. Denies sore throat. Denies ear pain. CARDIOVASCULAR: Denies chest pain. Complains of shortness of breath. Denies orthopnea. Denies PND. Denies palpitations. RESPIRATORY: Complains of cough. GASTROINTESTINAL: Denies abdominal pain. Denies diarrhea. Denies constipation. Denies nausea. Denies vomiting. MUSCULOSKELETAL: Denies myalgias. INTEGUMENTARY: Denies pruitis. Denies rash. NEUROLOGIC: Denies numbness. Denies tingling. Denies weakness. PSYCHIATRIC: Denies anxiety. Denies depression. ENDOCRINE: Denies fatigue. Denies weight change. Denies polydipsia. Denies polyurina. GENITOURINARY: Denies burning, hematuria or urgency with micturation. HEMATOLOGIC: Denies history of anemia. Denies bleeding. Past Medical History Past Medical History: Heart Failure, COPD, Diabetes Mellitus, Hypertension, Sleep Apnea/CPAP/BIPAP History of Any Multi-Drug Resistant Organisms: None Reported Past Surgical History: Back Surgery, Heart Catheterization With Stent, Joint Replacement, Orthopedic Surgery Additional Past Surgical History / Comment(s): bilateral hip replacement, right knee replacement, two back surgeries with rods and screws Past Anesthesia/Blood Transfusion Reactions: No Reported Reaction Date of Last Stent Placement:: 2010 Smoking Status: Former smoker - Past Family History Mother Family Medical History: CVA/TIA, Diabetes Mellitus, Myocardial Infarction ([place]) Father Family Medical History: CVA/TIA, Myocardial Infarction ([place]), Rheumatoid Arthritis ([place]) Medications and Allergies Home Medications Medication Instructions Recorded Confirmed Type Albuterol Inhaler [Ventolin Hfa 2 puff INHALATION RT-Q6H PRN 02/17/18 02/23/18 History Inhaler] Clopidogrel [Plavix] 75 mg PO HS 02/17/18 02/23/18 History Furosemide [Lasix] 40 mg PO BID 02/17/18 02/23/18 History Lisinopril [Zestril] 10 mg PO HS 02/17/18 02/23/18 History Omeprazole 20 mg PO DAILY 02/17/18 02/23/18 History Rosuvastatin Calcium [Crestor] 40 mg PO HS 02/17/18 02/23/18 History amLODIPine [Norvasc] 5 mg PO HS 02/17/18 02/23/18 History Budesonide [Pulmicort] 0.5 mg INHALATION RT-BID 02/23/18 02/23/18 History Ipratropium-Albuterol Nebulize 3 ml INHALATION RT-QID PRN 02/23/18 02/23/18 History [Duoneb 0.5 mg-3 mg/3 ml Soln] Allergies Allergy/AdvReac Type Severity Reaction Status Date / Time clavulanic acid Allergy Unknown Verified 02/23/18 21:35 diclofenac [From Voltaren] Allergy Unknown Verified 02/23/18 21:35 isosorbide [From Imdur] Allergy Unknown Verified 02/23/18 21:35 levofloxacin [From Levaquin] Allergy Swelling Verified 02/23/18 21:35 metformin Allergy Unknown Verified 02/23/18 21:35 NSAIDS (Non-Steroidal Allergy Unknown Verified 02/23/18 21:35 Anti-Inflamma Penicillins Allergy Unknown Verified 02/23/18 21:35 Quinolones Allergy Unknown Verified 02/23/18 21:35 tramadol [From Ultram] Allergy Unknown Verified 02/23/18 21:35 amoxicillin [From Augmentin] AdvReac Headache Verified 02/23/18 21:35 aspirin AdvReac Headache Verified 02/23/18 21:35 gabapentin AdvReac Headache Verified 02/23/18 21:35 meloxicam [From Mobic] AdvReac Headache Verified 02/23/18 21:35 nabumetone [From Relafen] AdvReac Headache Verified 02/23/18 21:35 nickel AdvReac Headache Verified 02/23/18 21:35 ranolazine [From Ranexa] AdvReac Headache Verified 02/23/18 21:35 Physical Exam Vitals: Vital Signs Temp Pulse Pulse Resp BP BP Pulse Ox 02/24/18 07:51 72 02/24/18 07:40 68 02/24/18 04:00 16 02/24/18 03:37 67 16 111/61 96 02/24/18 02:46 67 02/24/18 02:35 64 02/24/18 00:00 16 02/23/18 23:38 98.3 F 73 16 121/76 98 02/23/18 22:26 16 02/23/18 21:44 98.1 F 73 16 128/74 96 02/23/18 21:10 98.3 F 82 20 133/71 97 02/23/18 20:30 92 02/23/18 20:05 88 02/23/18 18:52 98 F 90 20 134/81 96 Intake and Output 02/23/18 02/24/18 02/24/18 22:59 06:59 14:59 Other: # Voids 1 1 Weight 62.1 kg Blood pressure 112/70 heart rate 58 afebrile maintaining oxygen saturation on nasal cannula GENERAL: This is a 78-year-old female in no apparent distress at the time of my examination. HEENT: Head is atraumatic, normocephalic. Pupils are equal, round. Sclerae anicteric. Conjunctivae are clear. Mucous membranes of the mouth are moist. Neck is supple. There is no jugular venous distention. No carotid bruit is heard. LUNGS: Clear to auscultation no wheezes, rales or rhonchi. No chest wall tenderness is noted on palpation or with deep breathing. Diminished bilaterally. HEART: Regular rate and rhythm without murmurs, rubs or gallops. S1 and S2 heard. ABDOMEN: Soft, nontender. Bowel sounds are heard. No organomegaly noted. EXTREMITIES: No evidence of peripheral edema and no calf tenderness noted. VASCULAR: Radial and dorsalis pedis pulses palpated, no evidence of clubbing. NEUROLOGIC: Patient is awake, alert and oriented x3. Results 02/23/18 19:35 02/23/18 19:35 Cardiac Enzymes 02/23/18 02/23/18 02/24/18 Range/Units 19:35 19:35 02:23 AST 21 (14-36) U/L CK-MB (CK-2) 1.0 (0.0-2.4) ng/mL Troponin I <0.012 0.014 (0.000-0.034) ng/mL Coagulation 02/23/18 Range/Units 19:35 PT 10.0 (9.0-12.0) sec APTT 22.4 (22.0-30.0) sec CBC 02/23/18 Range/Units 19:35 WBC 8.7 (3.8-10.6) k/uL RBC 5.31 (3.80-5.40) m/uL Hgb 15.3 (11.4-16.0) gm/dL Hct 48.5 H (34.0-46.0) % Plt Count 431 (150-450) k/uL Comprehensive Metabolic Panel 02/23/18 Range/Units 19:35 Sodium 142 (137-145) mmol/L Potassium 3.5 (3.5-5.1) mmol/L Chloride 106 (98-107) mmol/L Carbon Dioxide 28 (22-30) mmol/L BUN 16 (7-17) mg/dL Creatinine 0.89 (0.52-1.04) mg/dL Glucose 137 H (74-99) mg/dL Calcium 9.2 (8.4-10.2) mg/dL AST 21 (14-36) U/L ALT 26 (9-52) U/L Alkaline Phosphatase 102 (38-126) U/L Total Protein 6.5 (6.3-8.2) g/dL Albumin 4.0 (3.5-5.0) g/dL Current Medications Generic Name Dose Route Start Last Admin Trade Name Freq PRN Reason Stop Dose Admin Acetaminophen 650 mg 02/23/18 22:33 02/24/18 02:20 Tylenol Tab PO 650 mg Q4HR PRN Administration Fever and/ or Pain Albuterol/Ipratropium 3 ml 02/24/18 08:00 02/24/18 07:39 Duoneb 0.5 Mg-3 Mg/3 Ml Soln INHALATION 3 ml RT-QID EVELIA Administration Albuterol/Ipratropium 3 ml 02/23/18 21:33 02/24/18 02:35 Duoneb 0.5 Mg-3 Mg/3 Ml Soln INHALATION 3 ml RT-QID PRN Administration Shortness Of Breath Amlodipine Besylate 5 mg 02/23/18 21:45 02/23/18 22:37 Norvasc PO 5 mg HS EVELIA Administration Atorvastatin Calcium 80 mg 02/23/18 22:15 02/23/18 22:37 Lipitor PO 80 mg HS EVELIA Administration Budesonide 1 mg 02/24/18 08:00 02/24/18 07:38 Pulmicort INHALATION 1 mg RT-BID EVELIA Administration Clopidogrel Bisulfate 75 mg 02/23/18 22:15 02/23/18 22:37 Plavix PO 75 mg HS EVELIA Administration Furosemide 40 mg 02/24/18 09:00 Lasix PO BID EVELIA Lisinopril 10 mg 02/23/18 22:15 02/23/18 22:38 Zestril PO 10 mg HS EVELIA Administration Pantoprazole Sodium 40 mg 02/24/18 07:30 Protonix PO DAILY@0730 EVELIA Intake and Output 02/23/18 02/24/18 02/24/18 22:59 06:59 14:59 Other: # Voids 1 1 Weight 62.1 kg 02/23/18 19:35 02/23/18 19:35 Assessment and Plan Assessment: ASSESSMENT Chest pain, atypical. An acute coronary event has been ruled out. History of coronary artery disease s/p multiple stent placements. Recent catheterization 2017 revealed patent stents of circunflex and RCA with mild 30% disease of LAD. Allergic to imdur. Hypertension COPD Diabetes mellitus Obstructive sleep apnea Chronic diastolic dysfunction, currently euvolemic Former nicotine dependence PLAN An acute coronary event has been ruled out. Intolerant to imdur, ranexa and nitroglycerin. These medications cause a headache as far as she can remember. Symptoms are non-specific and not clearly related to angina. Continue with plavix, atorvastatin, amlodipine, lisinopril and lasix as previously ordered. Ongoing medical management and consultation by pulmonary. No further cardiac intervention. Follow up with Dr. CHARISSA Strong in 2-3 weeks. Thank you kindly for this consultation. Nurse Practitioner note has been reviewed, I agree with a documented findings and plan of care. Patient was seen and examined.
--- NOTE | 2018-02-24 10:49 | P.CNPUL ---
<Maribeth Newman E - Last Filed: 02/24/18 10:40> History of Present Illness Consult date: 02/24/18 Requesting physician: Onelia Aguirre Reason for consult: COPD Chief complaint: Shortness of breath History of present illness: This is a 72 6[age] female patient well-known to our services being seen examined and evaluated today on rounds. She does have a history of chronic diastolic dysfunction, hypertension, COPD, oxygen dependent, diabetes mellitus, and GALA. The patient came into the emergency room with multiple complaints such as shortness of breath, feelings of jitteriness, and chest pain. The patient stated that she was seen in our office last week for COPD and was put on high- dose steroids of prednisone 50 mg. She started feeling jittery and did return to our office on Tuesday and her steroids were decreased to 10 mg twice a day. Despite the lower dose she stated that she did not like the feeling of the steroids and started having chest pain and therefore she came into the hospital. The patient is oxygen-dependent at home and does wear 2 L at all times. Chest x-ray was reviewed and was negative for any acute process. She was also seen by cardiology and acute coronary syndrome was ruled out. Her most recent echo was 10/2017 did reveal an EF of 55% with a mild to moderate diastolic dysfunction and moderate pulmonary hypertension with an RVSP of 50 mmHg. Upon examination the patient states that she no longer is experiencing any chest pain and her shortness of breath is improving. She does have a slight cough with no sputum production. She uses DuoNeb and Pulmicort at home. She denies any fevers or chills. She does have generalized complains of soreness in her ankles and knees due to her arthritis. Review of Systems 14 point review of systems was completed and is negative unless noted above in the HPI Past Medical History Past Medical History: Heart Failure, COPD, Diabetes Mellitus, Hypertension, Sleep Apnea/CPAP/BIPAP History of Any Multi-Drug Resistant Organisms: None Reported Past Surgical History: Back Surgery, Heart Catheterization With Stent, Joint Replacement, Orthopedic Surgery Additional Past Surgical History / Comment(s): bilateral hip replacement, right knee replacement, two back surgeries with rods and screws Past Anesthesia/Blood Transfusion Reactions: No Reported Reaction Date of Last Stent Placement:: 2010 Smoking Status: Former smoker - Past Family History Mother Family Medical History: CVA/TIA, Diabetes Mellitus, Myocardial Infarction (ND) Father Family Medical History: CVA/TIA, Myocardial Infarction (ND), Rheumatoid Arthritis (RA) Medications and Allergies Home Medications Medication Instructions Recorded Confirmed Type Albuterol Inhaler [Ventolin Hfa 2 puff INHALATION RT-Q6H PRN 02/17/18 02/23/18 History Inhaler] Clopidogrel [Plavix] 75 mg PO HS 02/17/18 02/23/18 History Furosemide [Lasix] 40 mg PO BID 02/17/18 02/23/18 History Lisinopril [Zestril] 10 mg PO HS 02/17/18 02/23/18 History Omeprazole 20 mg PO DAILY 02/17/18 02/23/18 History Rosuvastatin Calcium [Crestor] 40 mg PO HS 02/17/18 02/23/18 History amLODIPine [Norvasc] 5 mg PO HS 02/17/18 02/23/18 History Budesonide [Pulmicort] 0.5 mg INHALATION RT-BID 02/23/18 02/23/18 History Ipratropium-Albuterol Nebulize 3 ml INHALATION RT-QID PRN 02/23/18 02/23/18 History [Duoneb 0.5 mg-3 mg/3 ml Soln] Allergies Allergy/AdvReac Type Severity Reaction Status Date / Time clavulanic acid Allergy Unknown Verified 02/23/18 21:35 diclofenac [From Voltaren] Allergy Unknown Verified 02/23/18 21:35 isosorbide [From Imdur] Allergy Unknown Verified 02/23/18 21:35 levofloxacin [From Levaquin] Allergy Swelling Verified 02/23/18 21:35 metformin Allergy Unknown Verified 02/23/18 21:35 NSAIDS (Non-Steroidal Allergy Unknown Verified 02/23/18 21:35 Anti-Inflamma Penicillins Allergy Unknown Verified 02/23/18 21:35 Quinolones Allergy Unknown Verified 02/23/18 21:35 tramadol [From Ultram] Allergy Unknown Verified 02/23/18 21:35 amoxicillin [From Augmentin] AdvReac Headache Verified 02/23/18 21:35 aspirin AdvReac Headache Verified 02/23/18 21:35 gabapentin AdvReac Headache Verified 02/23/18 21:35 meloxicam [From Mobic] AdvReac Headache Verified 02/23/18 21:35 nabumetone [From Relafen] AdvReac Headache Verified 02/23/18 21:35 nickel AdvReac Headache Verified 02/23/18 21:35 ranolazine [From Ranexa] AdvReac Headache Verified 02/23/18 21:35 Physical Exam Vitals: Vital Signs Temp Pulse Pulse Resp BP BP BP 02/24/18 08:00 18 02/24/18 07:51 72 02/24/18 07:45 97.7 F 58 L 18 112/70 02/24/18 07:40 68 02/24/18 04:00 16 02/24/18 03:37 67 16 111/61 02/24/18 02:46 67 02/24/18 02:35 64 02/24/18 00:00 16 02/23/18 23:38 98.3 F 73 16 121/76 02/23/18 22:26 16 02/23/18 21:44 98.1 F 73 16 128/74 02/23/18 21:10 98.3 F 82 20 133/71 02/23/18 20:30 92 02/23/18 20:05 88 02/23/18 18:52 98 F 90 20 134/81 Pulse Ox 02/24/18 08:00 02/24/18 07:51 02/24/18 07:45 96 02/24/18 07:40 02/24/18 04:00 02/24/18 03:37 96 02/24/18 02:46 02/24/18 02:35 02/24/18 00:00 02/23/18 23:38 98 02/23/18 22:26 02/23/18 21:44 96 02/23/18 21:10 97 02/23/18 20:30 02/23/18 20:05 02/23/18 18:52 96 Intake and Output 02/23/18 02/24/18 02/24/18 22:59 06:59 14:59 Other: # Voids 1 1 Weight 62.1 kg GENERAL EXAM: Alert, active, comfortable in no apparent distress. HEAD: Normocephalic. EYES: Normal reaction of pupils, equal size. NOSE: Clear with pink turbinates. THROAT: No erythema or exudates. NECK: No masses, no JVD. CHEST: No chest wall deformity. LUNGS: Equal air entry with no crackles, wheeze, rhonchi or dullness. Bases diminished CVS: S1 and S2 normal with no audible mumurs, regular rhythm. ABDOMEN: No hepatosplenomegaly, normal bowel sounds, no guarding or rigidity. EXTREMITIES: No edema noted, pedal pulses palpable. SKIN: No rashes CENTRAL NERVOUS SYSTEM: No focal deficits, tone is normal in all 4 extremities. Results - Laboratory Findings CBC and BMP: 02/23/18 19:35 02/23/18 19:35 PT/INR, D-dimer PT 10.0 sec (9.0-12.0) 02/23/18 19:35 INR 1.0 (<1.2) 02/23/18 19:35 Abnormal lab findings: Abnormal Labs 02/23/18 02/23/18 02/23/18 19:35 19:35 19:35 Hct 48.5 H Lymphocytes # 0.6 L Glucose 137 H POC Glucose (mg/dL) Ur Leukocyte Esterase Small H Urine Mucus Rare H 02/23/18 02/24/18 19:38 06:46 Hct Lymphocytes # Glucose POC Glucose (mg/dL) 131 H 141 H Ur Leukocyte Esterase Urine Mucus - Diagnostic Findings Chest x-ray: report reviewed, image reviewed Assessment and Plan Assessment: Assessment Atypical chest pain Acute on chronic hypoxic respiratory failure requiring supplemental oxygen COPD Pulmonary hypertension Obstructive sleep apnea Diabetes mellitus Hypertension Chronic diastolic heart failure History of CAD with multiple stent placements Plan Medications have been reviewed and will be continued as ordered. Hold on steroids at this time, and states her breathing is improved Continue with pulmonary hygiene, coughing and deep breathing exercises, and supportive care. Supplemental oxygen to maintain oxygen saturations of 92% or better. Continue nebulizer treatments. DuoNeb and budesonide Cardiology also on consult GI and DVT prophylaxis. We will continue to monitor labs/results and adjust treatment as necessary. Further recommendations pending. I performed an examination of the patient and discussed their management with the nurse practitioner. I have reviewed the nurse practitioner's note and agree with the documented findings and plan of care. <Nadja Pompa - Last Filed: 02/24/18 14:08> Physical Exam Osteopathic Statement: *. No significant issues noted on an osteopathic structural exam other than those noted in the History and Physical/Consult. Vitals: Vital Signs Temp Pulse Pulse Resp BP BP BP 02/24/18 12:00 18 02/24/18 11:27 98.3 F 93 18 116/65 02/24/18 11:21 68 02/24/18 11:05 68 02/24/18 08:00 18 02/24/18 07:51 72 02/24/18 07:45 97.7 F 58 L 18 112/70 02/24/18 07:40 68 02/24/18 04:00 16 02/24/18 03:37 67 16 111/61 02/24/18 02:46 67 02/24/18 02:35 64 02/24/18 00:00 16 02/23/18 23:38 98.3 F 73 16 121/76 02/23/18 22:26 16 02/23/18 21:44 98.1 F 73 16 128/74 02/23/18 21:10 98.3 F 82 20 133/71 02/23/18 20:30 92 02/23/18 20:05 88 02/23/18 18:52 98 F 90 20 134/81 Pulse Ox 02/24/18 12:00 02/24/18 11:27 98 02/24/18 11:21 02/24/18 11:05 02/24/18 08:00 02/24/18 07:51 02/24/18 07:45 96 02/24/18 07:40 02/24/18 04:00 02/24/18 03:37 96 02/24/18 02:46 02/24/18 02:35 02/24/18 00:00 02/23/18 23:38 98 02/23/18 22:26 02/23/18 21:44 96 02/23/18 21:10 97 02/23/18 20:30 02/23/18 20:05 02/23/18 18:52 96 Intake and Output 02/23/18 02/24/18 02/24/18 22:59 06:59 14:59 Other: # Voids 1 1 Weight 62.1 kg Results - Laboratory Findings CBC and BMP: 02/23/18 19:35 02/23/18 19:35 PT/INR, D-dimer PT 10.0 sec (9.0-12.0) 02/23/18 19:35 INR 1.0 (<1.2) 02/23/18 19:35 Abnormal lab findings: Abnormal Labs 02/23/18 02/23/18 02/23/18 19:35 19:35 19:35 Hct 48.5 H Lymphocytes # 0.6 L Glucose 137 H POC Glucose (mg/dL) Ur Leukocyte Esterase Small H Urine Mucus Rare H 02/23/18 02/24/18 02/24/18 19:38 06:46 12:14 Hct Lymphocytes # Glucose POC Glucose (mg/dL) 131 H 141 H 195 H Ur Leukocyte Esterase Urine Mucus Assessment and Plan Assessment: Patient seen and examined. Stop steroids. Continue nebs. Ok to DC from pulmonary standpoint. ~Nadja Pompa DO
[2018-02-24 11:30] VITALS: BP 116/65; PULSE 93; TEMP 98.3
[2018-02-24 12:19] LABS: Glucose,Whole Blood 195 mg/dL (75-99)
--- NOTE | 2018-02-24 12:55 | P.HPIM ---
History of Present Illness H&P Date: 02/23/18 Chief Complaint: Shortness of breath This would provide both H&P and discharge summary This is a pleasant 78-year-old lady patient of Dr. Nupur laurent. She has underlying history of COPD, chronic diastolic CHF, CAD, hypertension, hyperlipidemia, diabetes mellitus type 2, sleep apnea. She was seen in emergency room secondary to increasing shortness of breath, she was seen one week ago in the emergency room for COPD exacerbation, she was given prednisone and oral antibiotic, she got better however she got jittery and more hyper, she feels like she is floating on air, and more tremors. She saw Dr Pompa and prednisone was decreased to 10 mg twice a day. The shortness of breath is better however it has recurred with some chest pain, and was subsequently seen in the emergency room. Patient denies any calf pain however she does have ankle soreness, no significant cough no sputum, no dysphagia, no aspirate events. Patient denies any lightheadedness or syncope. No other neurologic deficits. Patient is on DuoNeb at home and Pulmicort 0.5 mg twice a day. Consultation made with cardiology, and pulmonary medicine. pateint currently refusing steroids. At her last cardiology workup included echocardiogram October 2017 EF of 55%, moderate diastolic dysfunction, moderate pulmonary hypertension, with RVSP of 50. Review of Systems Constitutional: Reports as per HPI, Denies anorexia, Denies chills, Denies chronic headaches, Denies chronic pain, Denies daytime sleepiness, Denies fatigue, Denies fever, Denies lethargy, Denies malaise, Denies night sweats, Denies poor appetite, Denies sweats, Denies weakness, Denies weight gain, Denies weight loss Ears, nose, mouth and throat: Reports as per HPI, Denies ant. neck pain, Denies bleeding gums, Denies dental pain, Denies dysphagia, Denies epistaxis, Denies headache, Denies hoarseness, Denies mouth pain, Denies nasal congestion, Denies nasal discharge, Denies neck fullness/pressure, Denies neck lump, Denies nose pain, Denies odynophagia, Denies post-nasal drip, Denies sinus pain, Denies sinus pressure, Denies swelling in mouth, Denies swelling in throat, Denies sore throat, Denies vertigo, Denies voice changes Cardiovascular: Reports as per HPI, Denies chest pain, Denies claudication, Denies decreased exercise tolerance, Denies dyspnea on exertion, Denies edema, Denies high blood pressure, Denies irregular heart beat, Denies leg edema, Denies lightheadedness, Denies orthopnea, Denies palpitations, Denies paroxysmal nocturnal dyspnea, Denies phlebitis, Denies rapid heart beat, Denies shortness of breath, Denies syncope Respiratory: Reports as per HPI, Reports cough, Denies congestion, Denies cough with sputum, Denies dyspnea, Denies excessive sputum, Denies hemoptysis, Denies home oxygen, Denies pain, Denies pain on inspiration, Denies pleurisy, Denies respiratory infections, Denies sleep apnea, Denies snoring, Denies wheezing Gastrointestinal: Denies as per HPI, Denies abdominal pain, Denies belching, Denies bloating, Denies BRBPR, Denies change in bowel habits, Denies coffee ground emesis, Denies constipation, Denies diarrhea, Denies dyspepsia, Denies early satiety, Denies excessive gas, Denies heartburn, Denies hematemesis, Denies hematochezia, Denies indigestion, Denies jaundice, Denies lactose intolerance, Denies loss of appetite, Denies melena, Denies nausea, Denies vomiting Genitourinary: Reports as per HPI Menstruation: Reports as per HPI, Reports postmenopausal Musculoskeletal: Reports as per HPI, Reports limitation of motion, Denies arm numbness/tingling, Denies atrophy, Denies fractures, Denies frequent falls, Denies gait dysfunction, Denies hot joints, Denies leg numbness/tingling, Denies loss of height, Denies low back pain, Denies morning stiffness, Denies muscle cramps, Denies muscle weakness, Denies myalgias, Denies neck pain, Denies neck stiffness, Denies prior amputations, Denies redness of joints, Denies shooting arm pain, Denies shooting leg pain Neurological: Reports as per HPI Psychiatric: Reports as per HPI, Reports irritability, Denies anhedonia, Denies anxiety, Denies anxiety attacks, Denies change in appetite, Denies change in libido, Denies change in sleep habits, Denies confusion, Denies depression, Denies difficulty concentrating, Denies disorientation, Denies hallucinations, Denies hopelessness, Denies hypersomnia, Denies insomnia, Denies memory loss, Denies mood swings, Denies paranoia, Denies sadness/tearfulness, Denies sleep disturbances, Denies suicidal ideation Endocrine: Reports as per HPI, Denies cold intolerance, Denies deepening of the voice, Denies excessive sweating, Denies excessive thirst, Denies fatigue, Denies flushing, Denies heat intolerance, Denies high blood sugars, Denies increase in ring/shoe/hat size, Denies low blood sugars, Denies nocturia, Denies palpitations, Denies polydipsia, Denies polyphagia, Denies polyuria, Denies proptosis, Denies recent glucocorticoid use, Denies thyroid mass, Denies weight change Hematologic/Lymphatic: Reports as per HPI, Denies easy bleeding, Denies easy bruising, Denies lymphadenopathy, Denies lymphedema, Denies thrombophilia Allergic/Immunologic: Reports as per HPI, Denies allergic rhinitis, Denies anaphylaxis, Denies angioedema, Denies gluten intolerance, Denies persistent infections, Denies seasonal allergies, Denies urticaria, Denies wheezing Past Medical History Past Medical History: Heart Failure, COPD, Diabetes Mellitus, Hypertension, Sleep Apnea/CPAP/BIPAP History of Any Multi-Drug Resistant Organisms: None Reported Past Surgical History: Back Surgery, Heart Catheterization With Stent, Joint Replacement, Orthopedic Surgery Additional Past Surgical History / Comment(s): bilateral hip replacement, right knee replacement, two back surgeries, Past Psychological History: Anxiety Smoking Status: Former smoker Past Alcohol Use History: Occasional Past Drug Use History: None Reported - Past Family History Mother Family Medical History: CVA/TIA, Diabetes Mellitus, Myocardial Infarction (PR) Father Family Medical History: CVA/TIA, Myocardial Infarction (PR), Rheumatoid Arthritis (RA) Medications and Allergies Home Medications Medication Instructions Recorded Confirmed Type Albuterol Inhaler [Ventolin Hfa 2 puff INHALATION RT-Q6H PRN 02/17/18 02/23/18 History Inhaler] Clopidogrel [Plavix] 75 mg PO HS 02/17/18 02/23/18 History Furosemide [Lasix] 40 mg PO BID 02/17/18 02/23/18 History Lisinopril [Zestril] 10 mg PO HS 02/17/18 02/23/18 History Omeprazole 20 mg PO DAILY 02/17/18 02/23/18 History Rosuvastatin Calcium [Crestor] 40 mg PO HS 02/17/18 02/23/18 History amLODIPine [Norvasc] 5 mg PO HS 02/17/18 02/23/18 History Budesonide [Pulmicort] 0.5 mg INHALATION RT-BID 02/23/18 02/23/18 History Ipratropium-Albuterol Nebulize 3 ml INHALATION RT-QID PRN 02/23/18 02/23/18 History [Duoneb 0.5 mg-3 mg/3 ml Soln] Allergies Allergy/AdvReac Type Severity Reaction Status Date / Time clavulanic acid Allergy Unknown Verified 02/23/18 21:35 diclofenac [From Voltaren] Allergy Unknown Verified 02/23/18 21:35 isosorbide [From Imdur] Allergy Unknown Verified 02/23/18 21:35 levofloxacin [From Levaquin] Allergy Swelling Verified 02/23/18 21:35 metformin Allergy Unknown Verified 02/23/18 21:35 NSAIDS (Non-Steroidal Allergy Unknown Verified 02/23/18 21:35 Anti-Inflamma Penicillins Allergy Unknown Verified 02/23/18 21:35 Quinolones Allergy Unknown Verified 02/23/18 21:35 tramadol [From Ultram] Allergy Unknown Verified 02/23/18 21:35 amoxicillin [From Augmentin] AdvReac Headache Verified 02/23/18 21:35 aspirin AdvReac Headache Verified 02/23/18 21:35 gabapentin AdvReac Headache Verified 02/23/18 21:35 meloxicam [From Mobic] AdvReac Headache Verified 02/23/18 21:35 nabumetone [From Relafen] AdvReac Headache Verified 02/23/18 21:35 nickel AdvReac Headache Verified 02/23/18 21:35 ranolazine [From Ranexa] AdvReac Headache Verified 02/23/18 21:35 Physical Exam Vitals: Vital Signs Temp Pulse Resp BP Pulse Ox 02/23/18 20:30 92 02/23/18 20:05 88 02/23/18 18:52 98 F 90 20 134/81 96 Intake and Output 02/23/18 02/23/18 02/23/18 06:59 14:59 22:59 Other: Weight 62.142 kg - Constitutional General appearance: cooperative, no acute distress - EENT Eyes: EOMI, dentition normal, normal appearance ENT: NA/AT, normal oropharynx - Neck Neck: normal ROM Thyroid: bilateral: normal size - Respiratory Respiratory: bilateral: CTA, negative: diminished, dullness, rales, rhonchi, wheezing, prolonged expiration, prolonged inspiration - Cardiovascular Rhythm: regular Heart sounds: normal: S1, S2 Abnormal Heart Sounds: no systolic murmur, no diastolic murmur, no rub, no S3 Gallop, no S4 Gallop, no click, no other - Gastrointestinal General gastrointestinal: normal bowel sounds, soft - Integumentary Integumentary: decreased turgor, normal - Neurologic Neurologic: CNII-XII intact - Musculoskeletal Musculoskeletal: gait normal - Psychiatric Psychiatric: A&O x's 3, appropriate affect, intact judgment & insight Results CBC & Chem 7: 02/23/18 19:35 02/23/18 19:35 Labs: Abnormal Lab Results - Last 24 Hours (Table) 02/23/18 02/23/18 02/23/18 Range/Units 19:35 19:35 19:35 Hct 48.5 H (34.0-46.0) % Lymphocytes # 0.6 L (1.0-4.8) k/uL Glucose 137 H (74-99) mg/dL POC Glucose (mg/dL) (75-99) mg/dL Ur Leukocyte Esterase Small H (Negative) Urine Mucus Rare H (None) /hpf 02/23/18 Range/Units 19:38 Hct (34.0-46.0) % Lymphocytes # (1.0-4.8) k/uL Glucose (74-99) mg/dL POC Glucose (mg/dL) 131 H (75-99) mg/dL Ur Leukocyte Esterase (Negative) Urine Mucus (None) /hpf Assessment and Plan Plan: 1. Shortness of breath. Secondary to COPD exacerbation, as well as acute on chronic pulmonary hypertension. seen late in the emergency room was given oral prednisone. One week ago. Patient did not tolerate the prednisone 50 mg secondary to jitteriness, and this was decreased to 10 mg twice a day. Patient was on DuoNeb, 4 times a day, we increased the Pulmicort at 1 mg twice a day, Solu-Medrol was given one time on emergency room and was not continued in medical floor secondary to side effects to higher doses steroids. Patient has improved significantly, and was requesting for home discharge. Patient lives with the son. Patient would continue on the tapering oral prednisone as previous, and to complete the oral antibiotic as previous. Chest x-ray failed to reveal any acute disease, BNP was normal. Cardiology was consulted, ruled out and sober angina, patient did not tolerate most of her cardiac medications, can tolerate Nitrol. She has nitroglycerin at home. patient can increase budesonide to 1mg bid x 2 wks then resume 0.5 bid 2. COPD with exacerbation, unable to tolerate higher doses of prednisone, we' ll going to increase potassium 9.5 to home dose of 1 mg twice a day for the next 2 weeks then decrease to 0.5 mg twice a day. Outpatient follow-up with Dr. Pompa, 3. History of CAD with multiple stent placement in the past, medical managment currently on plavix crestor norvasc lisinopril 4. Chronic diastolic CHF , on lasix, 40 bid no adjustment of diuretics 5. Diabetes mellitus type 2 not on any medication, unknown complications 6 Pulmonary hypertension severe. RV systolic pressure of 50 no new medications started by cardiology during his admission, contributing to chrinic dyspnea. might benefit from pulm hypertension clinic, pulmonary to reevaluate this need 7 Chronic hypoxemic respiratory failure requiring supplemental oxygen, acute exacerbation Discharge condition stable and improved Follow-up visits Dr. Ruffin in 1 week Follow-up Dr. Pompa one week Follow-up with Dr. CHARISSA Strong 3 weeks Discharge Medication List Albuterol Inhaler [Ventolin Hfa Inhaler] 2 puff INHALATION RT-Q6H PRN 02/17/18 [ History] Clopidogrel [Plavix] 75 mg PO HS 02/17/18 [History] Furosemide [Lasix] 40 mg PO BID 02/17/18 [History] Lisinopril [Zestril] 10 mg PO HS 02/17/18 [History] Omeprazole 20 mg PO DAILY 02/17/18 [History] Rosuvastatin Calcium [Crestor] 40 mg PO HS 02/17/18 [History] amLODIPine [Norvasc] 5 mg PO HS 02/17/18 [History] Budesonide [Pulmicort] 0.5 mg INHALATION RT-BID 02/23/18 [History] Ipratropium-Albuterol Nebulize [Duoneb 0.5 mg-3 mg/3 ml Soln] 3 ml INHALATION RT -QID PRN 02/23/18 [History] Laboratory Results WBC 8.7 k/uL (3.8-10.6) 02/23/18 19:35 RBC 5.31 m/uL (3.80-5.40) 02/23/18 19:35 Hgb 15.3 gm/dL (11.4-16.0) 02/23/18 19:35 Hct 48.5 % (34.0-46.0) H 02/23/18 19:35 MCV 91.4 fL (80.0-100.0) 02/23/18 19:35 MCH 28.8 pg (25.0-35.0) 02/23/18 19:35 MCHC 31.5 g/dL (31.0-37.0) 02/23/18 19:35 RDW 14.1 % (11.5-15.5) 02/23/18 19:35 Plt Count 431 k/uL (150-450) 02/23/18 19:35 Neutrophils % 88 % 02/23/18 19:35 Lymphocytes % 7 % 02/23/18 19:35 Monocytes % 4 % 02/23/18 19:35 Eosinophils % 0 % 02/23/18 19:35 Basophils % 0 % 02/23/18 19:35 Neutrophils # 7.6 k/uL (1.3-7.7) 02/23/18 19:35 Lymphocytes # 0.6 k/uL (1.0-4.8) L 02/23/18 19:35 Monocytes # 0.4 k/uL (0-1.0) 02/23/18 19:35 Eosinophils # 0.0 k/uL (0-0.7) 02/23/18 19:35 Basophils # 0.0 k/uL (0-0.2) 02/23/18 19:35 PT 10.0 sec (9.0-12.0) 02/23/18 19:35 INR 1.0 (<1.2) 02/23/18 19:35 APTT 22.4 sec (22.0-30.0) 02/23/18 19:35 Sodium 142 mmol/L (137-145) 02/23/18 19:35 Potassium 3.5 mmol/L (3.5-5.1) 02/23/18 19:35 Chloride 106 mmol/L (98-107) 02/23/18 19:35 Carbon Dioxide 28 mmol/L (22-30) 02/23/18 19:35 Anion Gap 8 mmol/L 02/23/18 19:35 BUN 16 mg/dL (7-17) 02/23/18 19:35 Creatinine 0.89 mg/dL (0.52-1.04) 02/23/18 19:35 Est GFR (CKD-EPI)AfAm 73 (>60 ml/min/1.73 sqM) 02/23/18 19:35 Est GFR (CKD-EPI)NonAf 63 (>60 ml/min/1.73 sqM) 02/23/18 19:35 Glucose 137 mg/dL (74-99) H 02/23/18 19:35 POC Glucose (mg/dL) 195 mg/dL (75-99) H 02/24/18 12:14 POC Glu Accounting File Clerk ID Cristiane Juan 02/24/18 12:14 Calcium 9.2 mg/dL (8.4-10.2) 02/23/18 19:35 Magnesium 2.3 mg/dL (1.6-2.3) 02/23/18 19:35 Total Bilirubin 0.4 mg/dL (0.2-1.3) 02/23/18 19:35 AST 21 U/L (14-36) 02/23/18 19:35 ALT 26 U/L (9-52) 02/23/18 19:35 Alkaline Phosphatase 102 U/L (38-126) 02/23/18 19:35 Total Creatine Kinase 47 U/L (30-135) 02/23/18 19:35 CK-MB (CK-2) 1.0 ng/mL (0.0-2.4) 02/23/18 19:35 CK-MB (CK-2) Rel Index 2.1 02/23/18 19:35 Troponin I 0.014 ng/mL (0.000-0.034) 09/28/18 02:23 NT-Pro-B Natriuret Pep 207 pg/mL 02/23/18 19:35 Total Protein 6.5 g/dL (6.3-8.2) 02/23/18 19:35 Albumin 4.0 g/dL (3.5-5.0) 02/23/18 19:35 Urine Color Colorless 02/23/18 19:35 Urine Appearance Clear (Clear) 02/23/18 19:35 Urine pH 6.5 (5.0-8.0) 02/23/18 19:35 Ur Specific [place] 1.004 (1.001-1.035) 02/23/18 19:35 Urine Protein Negative (Negative) 02/23/18 19:35 Urine Glucose (UA) Negative (Negative) 02/23/18 19:35 Urine Ketones Negative (Negative) 02/23/18 19:35 Urine Blood Negative (Negative) 02/23/18 19:35 Urine Nitrite Negative (Negative) 02/23/18 19:35 Urine Bilirubin Negative (Negative) 02/23/18 19:35 Urine Urobilinogen <2.0 mg/dL (<2.0) 02/23/18 19:35 Ur Leukocyte Esterase Small (Negative) H 02/23/18 19:35 Urine WBC 1 /hpf (0-5) 02/23/18 19:35 Ur Squamous Epith Cells <1 /hpf (0-4) 02/23/18 19:35 Hyaline Casts 1 /lpf (0-2) 02/23/18 19:35 Urine Mucus Rare /hpf (None) H 02/23/18 19:35
== END 2018-02-24 13:00 | disposition home or self-care (01) ==
LOC: EC 18:42 → 3OBS 20:58
PROVIDERS: ADMIT Family Medicine; ATTEND Family Medicine
DX: R06.02 Shortness of breath (principal); J44.1 Chronic obstructive pulmonary disease with (acute) exacerbation; I27.20 Pulmonary hypertension, unspecified; Z95.5 Presence of coronary angioplasty implant and graft; I50.32 Chronic diastolic (congestive) heart failure; E11.9 Type 2 diabetes mellitus without complications; R19.7 Diarrhea, unspecified; M79.89 Other specified soft tissue disorders; R53.1 Weakness; M19.072 Primary osteoarthritis, left ankle and foot; M19.071 Primary osteoarthritis, right ankle and foot; M17.0 Bilateral primary osteoarthritis of knee; J96.21 Acute and chronic respiratory failure with hypoxia; I11.0 Hypertensive heart disease with heart failure; E78.5 Hyperlipidemia, unspecified; I25.10 Atherosclerotic heart disease of native coronary artery without angina pectoris; G47.33 Obstructive sleep apnea (adult) (pediatric); Z99.89 Dependence on other enabling machines and devices; F41.9 Anxiety disorder, unspecified; Z79.899 Other long term (current) drug therapy; Z79.02 Long term (current) use of antithrombotics/antiplatelets; Z79.51 Long term (current) use of inhaled steroids; Z88.6 Allergy status to analgesic agent; Z88.1 Allergy status to other antibiotic agents; Z88.5 Allergy status to narcotic agent; Z88.0 Allergy status to penicillin; Z88.8 Allergy status to other drugs, medicaments and biological substances; Z91.048 Other nonmedicinal substance allergy status; Z87.891 Personal history of nicotine dependence; Z82.3 Family history of stroke; Z99.81 Dependence on supplemental oxygen
CPT/HCPCS: 99285 ×2; 96374 ×2; 36415; 94640 ×3; 93005; 83880; 80053; 82550; 82553; 83735; 84484 ×2; 85025; 85610; 85730; 81001; 71046; G0378 ×2; J2930

== ENCOUNTER 2018-03-20 14:44 | Inpatient (IN) | payer MEDICARE ==
[2018-03-20] MEDS ORDERED: IPRATROPIUM 0.5 MG/2.5 ML NEBU INHALATION STA (15:21)
[2018-03-20] MEDS ORDERED: ALBUTEROL NEBULIZED 2.5 MG/3 ML INHALATION STA (15:21)
--- NOTE | 2018-03-20 15:26 | ED ---
General Adult HPI - General Source: patient, RN notes reviewed Mode of arrival: wheelchair Limitations: no limitations <Murray Ray - Last Filed: 03/20/18 16:32> <Madhu Perez - Last Filed: 03/20/18 17:39> - General Chief complaint: Shortness of Breath Stated complaint: LATANYA Time Seen by Provider: 03/20/18 14:50 - History of Present Illness Initial comments: This is a 78-year-old female with past medical history significant for COPD. Patient comes in after having recently been treated for bronchitis. Patient states her difficulty breathing is not improved over the last couple of weeks. Patient states anytime she walks any distance even short distance or shortness of breath worsens. Patient denies any chest pain or palpitations. Patient denies any recent fever or chills. Patient states she is coughing up some clear sputum but there is no color to it. Patient denies any lightheadedness dizziness or near syncopal episode. Patient denies any headache patient denies any numbness weakness. Patient denies any recent trip or travel. Patient denies any calf tenderness patient denies any leg swelling. Patient denies abdominal pain patient denies nausea vomiting diarrhea. (Murray Ray) - Related Data Home Medications Medication Instructions Recorded Confirmed Clopidogrel [Plavix] 75 mg PO HS 02/17/18 03/20/18 Furosemide [Lasix] 40 mg PO BID 02/17/18 03/20/18 Lisinopril [Zestril] 10 mg PO HS 02/17/18 03/20/18 Omeprazole 20 mg PO DAILY 02/17/18 03/20/18 Rosuvastatin Calcium [Crestor] 40 mg PO HS 02/17/18 03/20/18 amLODIPine [Norvasc] 5 mg PO HS 02/17/18 03/20/18 Budesonide [Pulmicort] 0.5 mg INHALATION RT-BID 02/23/18 03/20/18 Ipratropium-Albuterol Nebulize 3 ml INHALATION RT-QID PRN 02/23/18 03/20/18 [Duoneb 0.5 mg-3 mg/3 ml Soln] Albuterol Sulfate [Proair 2 puff PO RT-Q4H PRN 03/16/18 03/20/18 Respiclick] ALPRAZolam [Xanax] 0.5 mg PO BID PRN 03/20/18 03/20/18 Metoprolol Tartrate [Lopressor] 12.5 mg PO DAILY 03/20/18 03/20/18 Montelukast Sodium [Singulair] 10 mg PO HS 03/20/18 03/20/18 Nitroglycerin Sl Tabs [Nitrostat] 0.4 mg PO DIRECTED 03/20/18 03/20/18 Allergies Allergy/AdvReac Type Severity Reaction Status Date / Time clavulanic acid Allergy Unknown Verified 03/20/18 15:12 diclofenac [From Voltaren] Allergy Unknown Verified 03/20/18 15:12 isosorbide [From Imdur] Allergy Unknown Verified 03/20/18 15:12 levofloxacin [From Levaquin] Allergy Swelling Verified 03/20/18 15:12 metformin Allergy Unknown Verified 03/20/18 15:12 NSAIDS (Non-Steroidal Allergy Unknown Verified 03/20/18 15:12 Anti-Inflamma Penicillins Allergy Unknown Verified 03/20/18 15:12 prednisone Allergy VERY HYPER Verified 03/20/18 15:12 FEELING, EXHAUSTED Quinolones Allergy Unknown Verified 03/20/18 15:12 tramadol [From Ultram] Allergy Unknown Verified 03/20/18 15:12 amoxicillin [From Augmentin] AdvReac Headache Verified 03/20/18 15:12 aspirin AdvReac Headache Verified 03/20/18 15:12 gabapentin AdvReac Headache Verified 03/20/18 15:12 meloxicam [From Mobic] AdvReac Headache Verified 03/20/18 15:12 nabumetone [From Relafen] AdvReac Headache Verified 03/20/18 15:12 nickel AdvReac Headache Verified 03/20/18 15:12 ranolazine [From Ranexa] AdvReac Headache Verified 03/20/18 15:12 Review of Systems ROS Other: All systems not noted in ROS Statement are negative. <Murray Ray - Last Filed: 03/20/18 16:32> ROS Other: All systems not noted in ROS Statement are negative. <Madhu Perez - Last Filed: 03/20/18 17:39> ROS Statement: Those systems with pertinent positive or pertinent negative responses have been documented in the HPI. Past Medical History Past Medical History: Cancer, Heart Failure, COPD, Diabetes Mellitus, GERD/ Reflux, Hypertension, Osteoarthritis (OA), Sleep Apnea/CPAP/BIPAP Additional Past Medical History / Comment(s): CPAP WITH OXYGEN, SKIN CANCER , DIET CONTROLLED DIABETIC , History of Any Multi-Drug Resistant Organisms: None Reported Past Surgical History: Back Surgery, Heart Catheterization With Stent, Joint Replacement, Orthopedic Surgery Additional Past Surgical History / Comment(s): bilateral hip replacement, right knee replacement, two back surgeries, Past Anesthesia/Blood Transfusion Reactions: No Reported Reaction Date of Last Stent Placement:: 2010 Past Psychological History: Anxiety, Depression Smoking Status: Former smoker Past Alcohol Use History: None Reported Past Drug Use History: None Reported - Past Family History Mother Family Medical History: CVA/TIA, Diabetes Mellitus, Myocardial Infarction ([place]) Father Family Medical History: CVA/TIA, Myocardial Infarction ([place]), Rheumatoid Arthritis ([place]) Sister(s) Family Medical History: Cancer <Murray Ray - Last Filed: 03/20/18 16:32> General Exam Limitations: no limitations <Murray Ray - Last Filed: 03/20/18 16:32> <Madhu Perez - Last Filed: 03/20/18 17:39> - General Exam Comments Initial Comments: GENERAL: Patient is well-developed and well-nourished. Patient is nontoxic and well- hydrated and is in no acute distress. ENT: Neck is soft and supple. No significant lymphadenopathy is noted. Oropharynx is clear. Moist mucous membranes. Neck has full range of motion without eliciting any pain. EYES: The sclera were anicteric and conjunctiva were pink and moist. Extraocular movements were intact and pupils were equal round and reactive to light. Eyelids were unremarkable. PULMONARY: Unlabored respirations. Good breath sounds bilaterally. No audible rales rhonchi or wheezing was noted. CARDIOVASCULAR: Patient is a regular rate and rhythm. ABDOMEN: Soft and nontender with normal bowel sounds. No palpable organomegaly was noted. There is no palpable pulsatile mass. SKIN: Skin is clear with no lesions or rashes and otherwise unremarkable. NEUROLOGIC: Patient is alert and oriented x3. Cranial nerves II through XII are grossly intact. Motor and sensory are also intact. Normal speech, volume and content. Symmetrical smile. MUSCULOSKELETAL: Normal extremities with adequate strength and full range of motion. No lower extremity swelling or edema. No calf tenderness. LYMPHATICS: No significant lymphadenopathy is noted PSYCHIATRIC: Normal psychiatric evaluation. (Murray Ray) Course <Murray Ray - Last Filed: 03/20/18 16:32> <Madhu Perez - Last Filed: 03/20/18 17:39> Vital Signs 03/20/18 03/20/18 03/20/18 14:49 15:20 15:30 Temperature 98.3 F Pulse Rate 65 59 L 58 L Respiratory 18 21 Rate Blood Pressure 120/63 121/74 O2 Sat by Pulse 93 L 95 Oximetry 03/20/18 03/20/18 03/20/18 15:40 15:43 17:00 Temperature Pulse Rate 70 61 50 L Respiratory 25 H 28 H Rate Blood Pressure 143/54 125/68 O2 Sat by Pulse 100 94 L Oximetry - Reevaluation(s) Reevaluation #1: 03/20/18 17:38 Reevaluation the patient on my exam reveals patient still dyspneic with diffuse inspiratory Ur wheezing and cough. X-ray shows evidence COPD with some small nodules lab work is reviewed. Patient will be admitted for inpatient treatment COPD exacerbation. Dr. Strong will be consulted for pulmonology. (Madhu Perez) Medical Decision Making <Murray Ray - Last Filed: 03/20/18 16:32> - Lab Data Result diagrams: 03/20/18 15:04 03/20/18 15:04 <Madhu Perez - Last Filed: 03/20/18 17:39> - Medical Decision Making EKG shows a sinus rhythm at 64 bpm LA interval 236 QRS 88 QTC is 410 QTC is 422 per patient's EKG shows no significant ST segment elevation there is slight ST segment depression in some precordial leads V3 through V6. Dr. Perez will be taking over the care of this patient at 5 PM (Murray Ray) - Lab Data Lab Results 03/20/18 03/20/18 03/20/18 Range/Units 15:04 15:04 15:04 WBC 9.7 (3.8-10.6) k/uL RBC 5.11 (3.80-5.40) m/uL Hgb 14.9 (11.4-16.0) gm/dL Hct 47.1 H (34.0-46.0) % MCV 92.2 (80.0-100.0) fL MCH 29.1 (25.0-35.0) pg MCHC 31.5 (31.0-37.0) g/dL RDW 13.9 (11.5-15.5) % Plt Count 313 (150-450) k/uL Neutrophils % 72 % Lymphocytes % 13 % Monocytes % 6 % Eosinophils % 7 % Basophils % 1 % Neutrophils # 6.9 (1.3-7.7) k/uL Lymphocytes # 1.3 (1.0-4.8) k/uL Monocytes # 0.5 (0-1.0) k/uL Eosinophils # 0.7 (0-0.7) k/uL Basophils # 0.1 (0-0.2) k/uL PT (9.0-12.0) sec INR (<1.2) APTT (22.0-30.0) sec Sodium 141 (137-145) mmol/L Potassium 4.3 (3.5-5.1) mmol/L Chloride 102 (98-107) mmol/L Carbon Dioxide 28 (22-30) mmol/L Anion Gap 11 mmol/L BUN 12 (7-17) mg/dL Creatinine 0.75 (0.52-1.04) mg/dL Est GFR (CKD-EPI)AfAm 90 (>60 ml/min/1.73 sqM) Est GFR (CKD-EPI)NonAf 78 (>60 ml/min/1.73 sqM) Glucose 100 H (74-99) mg/dL Calcium 9.6 (8.4-10.2) mg/dL Magnesium 2.1 (1.6-2.3) mg/dL Total Bilirubin 0.7 (0.2-1.3) mg/dL AST 22 (14-36) U/L ALT 26 (9-52) U/L Alkaline Phosphatase 89 (38-126) U/L Total Creatine Kinase 73 (30-135) U/L CK-MB (CK-2) 1.2 (0.0-2.4) ng/mL CK-MB (CK-2) Rel Index 1.6 Troponin I 0.028 (0.000-0.034) ng/mL NT-Pro-B Natriuret Pep pg/mL Total Protein 7.2 (6.3-8.2) g/dL Albumin 4.4 (3.5-5.0) g/dL 03/20/18 03/20/18 Range/Units 15:04 15:04 WBC (3.8-10.6) k/uL RBC (3.80-5.40) m/uL Hgb (11.4-16.0) gm/dL Hct (34.0-46.0) % MCV (80.0-100.0) fL MCH (25.0-35.0) pg MCHC (31.0-37.0) g/dL RDW (11.5-15.5) % Plt Count (150-450) k/uL Neutrophils % % Lymphocytes % % Monocytes % % Eosinophils % % Basophils % % Neutrophils # (1.3-7.7) k/uL Lymphocytes # (1.0-4.8) k/uL Monocytes # (0-1.0) k/uL Eosinophils # (0-0.7) k/uL Basophils # (0-0.2) k/uL PT 9.8 (9.0-12.0) sec INR 1.0 (<1.2) APTT 24.6 (22.0-30.0) sec Sodium (137-145) mmol/L Potassium (3.5-5.1) mmol/L Chloride (98-107) mmol/L Carbon Dioxide (22-30) mmol/L Anion Gap mmol/L BUN (7-17) mg/dL Creatinine (0.52-1.04) mg/dL Est GFR (CKD-EPI)AfAm (>60 ml/min/1.73 sqM) Est GFR (CKD-EPI)NonAf (>60 ml/min/1.73 sqM) Glucose (74-99) mg/dL Calcium (8.4-10.2) mg/dL Magnesium (1.6-2.3) mg/dL Total Bilirubin (0.2-1.3) mg/dL AST (14-36) U/L ALT (9-52) U/L Alkaline Phosphatase (38-126) U/L Total Creatine Kinase (30-135) U/L CK-MB (CK-2) (0.0-2.4) ng/mL CK-MB (CK-2) Rel Index Troponin I (0.000-0.034) ng/mL NT-Pro-B Natriuret Pep 222 pg/mL Total Protein (6.3-8.2) g/dL Albumin (3.5-5.0) g/dL Disposition <Murray Ray - Last Filed: 03/20/18 16:32> <Madhu Perez - Last Filed: 03/20/18 17:39> Clinical Impression: Acute exacerbation of chronic obstructive airways disease, Adult respiratory distress syndrome Disposition: ADMITTED IP TO THIS HOSP Condition: Stable Referrals: Katlin Ruffin MD [Primary Care Provider] - 1-2 days
--- NOTE | 2018-03-20 16:16 | XR ---
EXAMINATION TYPE: XR chest 2V DATE OF EXAM: 03/20/2018 COMPARISON: 02/23/2018 HISTORY: Shortness of breath, cough and congestion. TECHNIQUE: Frontal and lateral views of the chest are obtained. FINDINGS: There is no focal air space opacity, pleural effusion, or pneumothorax seen. Pulmonary hyp erinflation seen with flattening of the diaphragms. Left midlung linear atelectasis is noted. Biapica l pleural-parenchymal thickening is also seen. Punctate nodular densities are noted at the lung apice s. Right peripheral apical pleural parenchymal scarring is noted. The cardiac silhouette size is with in normal limits. The osseous structures are intact. Moderate multilevel degenerative changes of th e thoracic spine are present. IMPRESSION: No acute cardiopulmonary process. Radiographic sequela of COPD. Nodular densities at the lung apices for which nonemergent CT thorax is recommended with pulmonary nodule in this high-risk p atient.
[2018-03-20 16:30] LABS: Basophils # (A) 0.1 k/uL (0-0.2); Basophils % (A) 1 %; Eosinophils # (A) 0.7 k/uL (0-0.7); Eosinophils % (A) 7 %; HCT 47.1 % (34.0-46.0); HGB 14.9 gm/dL (11.4-16.0); Lymphocytes # (A) 1.3 k/uL (1.0-4.8); Lymphocytes % (A) 13 %; MCH 29.1 pg (25.0-35.0); MCHC 31.5 g/dL (31.0-37.0); MCV 92.2 fL (80.0-100.0); Mean Platelet Volume 7.7; Monocytes # (A) 0.5 k/uL (0-1.0); Monocytes % (A) 6 %; Neutrophils # (A) 6.9 k/uL (1.3-7.7); Neutrophils % (A) 72 %; Platelet Count 313 k/uL (150-450); RBC 5.11 m/uL (3.80-5.40); RDW 13.9 % (11.5-15.5); WBC 9.7 k/uL (3.8-10.6)
[2018-03-20 16:42] LABS: Albumin 4.4 g/dL (3.5-5.0); Calcium 9.6 mg/dL (8.4-10.2); Magnesium 2.1 mg/dL (1.6-2.3); Potassium 4.3 mmol/L (3.5-5.1); Total Bilirubin 0.7 mg/dL (0.2-1.3); Total Protein 7.2 g/dL (6.3-8.2)
[2018-03-20 16:50] LABS: Partial Thromboplastin Time 24.6 sec (22.0-30.0); Prothrombin Time 9.8 sec (9.0-12.0)
[2018-03-20 17:02] LABS: Creatine Kinase MB 1.2 ng/mL (0.0-2.4); Troponin I 0.028 ng/mL (0.000-0.034)
[2018-03-20] MEDS ORDERED: IPRATROPIUM-ALBUTEROL 3 ML NEB INHALATION STA (17:35)
[2018-03-20] MEDS ORDERED: MAGNESIUM SULFATE-D5W PMX 1 GM in DEXTROSE/WATER 1 100ML.BAG IVPB ONE (17:36)
[2018-03-20] MEDS ORDERED: NITROGLYCERIN SL TABS 0.4 MG TAB SUBLINGUAL PRN (17:45)
[2018-03-20] MEDS: IPRATROPIUM-ALBUTEROL 3 ML NEB INHALATION SCH ×2 (19:40→23:36)
[2018-03-20] MEDS: BUDESONIDE 0.5 MG/2 ML NEBU INHALATION SCH (19:40)
[2018-03-20 20:38] LABS: Glucose,Whole Blood 201 mg/dL (75-99)
[2018-03-20] MEDS: FUROSEMIDE 40 MG TAB PO SCH (21:50)
[2018-03-20] MEDS: FAMOTIDINE 20 MG/2 ML VIAL IV SCH (21:50)
[2018-03-20] MEDS: HEPARIN SODIUM,PORCINE 5,000 UNIT/ML 1 ML VIAL SQ SCH (21:50)
[2018-03-20] MEDS: methylPREDNISolone SOD SUCCI 125 MG/2 ML VIAL IV SCH ×2 (21:50→23:52)
[2018-03-20] MEDS: amLODIPine 5 MG TAB PO SCH (21:50)
[2018-03-20] MEDS: CLOPIDOGREL 75 MG TAB PO SCH (21:50)
[2018-03-20] MEDS: MONTELUKAST 10 MG TAB PO SCH (21:50)
[2018-03-20] MEDS: ATORVASTATIN 80 MG TAB PO SCH (21:50)
[2018-03-20] MEDS: LISINOPRIL 10 MG TAB PO SCH (21:50)
[2018-03-21] MEDS: IPRATROPIUM-ALBUTEROL 3 ML NEB INHALATION SCH ×6 (03:13→23:45)
[2018-03-21] MEDS: methylPREDNISolone SOD SUCCI 125 MG/2 ML VIAL IV SCH ×2 (06:07→12:35)
[2018-03-21] MEDS: BUDESONIDE 0.5 MG/2 ML NEBU INHALATION SCH ×2 (07:17→20:18)
[2018-03-21 07:49] LABS: Glucose,Whole Blood 165 mg/dL (75-99)
--- NOTE | 2018-03-21 08:00 | CONS ---
CONSULTATION Siena Geronimo is a 78-year-old female with increasing shortness of breath of about one weeks duration. She had noticed wheezing, cough. No clear fever or chills. She had initially a scant phlegm. Subsequently it became white and now it is white along with some yellowness as well. She denies any hemoptysis and subsequently was being admitted for further evaluation. She does not have any chest pain. Does not have any abdominal cramping, nausea, or vomiting. PAST MEDICAL HISTORY: Past medical history is positive for congestive heart failure, severe asthma with COPD, diabetes mellitus type 2, obstructive sleep apnea for which she is on CPAP, history of cardiac catheterization with stent placement, history of bilateral hip and right knee replacement, history of back surgery. FAMILY HISTORY: Family history is positive for CVA, TIA in her mother, diabetes mellitus, acute myocardial infarction in her mother. Father has a history of CVA, myocardial infarction and rheumatoid arthritis. SOCIAL HISTORY: Patient smoked for 40 years. She does not smoke at this time. She does not drink alcohol excessively. MEDICATIONS: Medications prior to admission were metoprolol, Norvasc, Crestor, omeprazole, Nitrostat, Singulair, Zestril, DuoNeb, Lasix, Plavix, Pulmicort, ProAir Respiclick, and alprazolam. REVIEW OF SYSTEMS: Noncontributory other than for what is described in history of present illness and past medical history. ALLERGIES: The patient has allergies which are multiple and are reviewed and are listed in the chart. PHYSICAL EXAMINATION: On physical examination, her blood pressure is 157/60, respiratory rate 26, pulse rate of 75, temperature 98.1, O2 sat on 2 L by nasal cannula is 97%. HEENT reveals pupils are equal. No jugular venous distention. Chest reveals decreased breath sounds. Prolonged expiration with expiratory wheezing. Cardiovascular system reveals an S1, S2. Abdomen is soft. There is trace pedal edema. Chest x-ray shows no acute cardiopulmonary processes. There is some nodular densities in the apex which are small. LABS: Labs reveal white count of 9.7, hemoglobin of 14.9. Eosinophilic count of 0.7 thousand. Sodium 141, potassium 4.3, chloride 102, bicarb 28, BUN 12, creatinine 0.75. IMPRESSION AT THIS TIME: 1. Severe eosinophilic asthma with acute exacerbation. 2. Baseline chronic obstructive pulmonary disease. 3. Coronary artery disease. 4. Congestive heart failure, it seems to be stable at this time. At this point in time, keep her on IV and aerosolized steroids. Keep her on Singulair, keep her on GI and DVT prophylaxis. Continue her on bronchodilators. Keep her on supplemental oxygen. Depending on how she does we shall make further changes to her care. She may be a candidate for antieosinophilic treatment in the outpatient setting. She was counseled regarding her condition and this approach and has a fair understanding of recommendation. MMODL / IJN: [id number] /
[2018-03-21] MEDS: HEPARIN SODIUM,PORCINE 5,000 UNIT/ML 1 ML VIAL SQ SCH ×2 (08:26→20:17)
[2018-03-21] MEDS: FAMOTIDINE 20 MG/2 ML VIAL IV SCH (08:27)
[2018-03-21] MEDS: FUROSEMIDE 40 MG TAB PO SCH ×2 (08:27→15:20)
[2018-03-21] MEDS: PANTOPRAZOLE 40 MG TABLET PO SCH (08:27)
[2018-03-21] MEDS: METOPROLOL TARTRATE 12.5 MG TAB PO SCH (08:27)
[2018-03-21] MEDS: ALPRAZolam 0.5 MG TAB PO PRN ×2 (11:04→23:28)
--- NOTE | 2018-03-21 12:12 | CDI ---
Documentation Clarification Form Date: 03/21/2018 CDS: Parul Gabriel, CCS, CCDS Admit Date: 03/20/2018 Patient Name: Siena Geronimo Discharge Date: ATTENTION: The Clinical Documentation Specialists (CDI) and [facility] Coding Staff appreciate your assistance in clarifying documentation. Please respond to the clarification below the line at the bottom and electronically sign. The CDI & [facility] Coding staff will review the response and follow-up if needed. Please note: Queries are made part of the Legal Health Record. If you have any questions, please contact the author of this message via ITS. Dr. Raul Strong: 78 yo female, presented with SOB & coughing clear-yellow sputum. Per the pulmonary consult: "Severe eosinophilic asthma with acute exacerbation" is documented. Patient history/risk factors: COPD, documented as stable, not in exacerbation, uses CPAP; CAD with stent, diet controlled DM II & CHF nos. Clinical Indicators: VS: P 65 - 58*; R 18 (sob, labored) Radiology: CXR: COPD, pulmonary nodule. Treatment: O2 2Lnc, Albuterol INH, atrovent INH, IV MagSulf, Nitro sl, IV Rocephin, po Lasix. In your professional opinion, can you please further specify the following, if known? Status: Acute Exacerbation Status asthmaticus Acute lower respiratory infection COPD (specify with or without exacerbation) Chronic obstructive bronchitis Other, please specify Unable to determine Severity: Mild intermittent Mild persistent Moderate persistent Severe persistent Other, please specify Unable to determine ____ MTDD
[2018-03-21 12:23] LABS: Glucose,Whole Blood 162 mg/dL (75-99)
[2018-03-21] MEDS ORDERED: ACETAMINOPHEN TAB 325 MG TAB PO PRN (12:24)
[2018-03-21] MEDS: INSULIN ASPART 100 UNIT/ML 1 ML 10 ML VIAL SQ SCH ×3 (12:35→20:55)
--- NOTE | 2018-03-21 15:09 | P.HPIM ---
History of Present Illness H&P Date: 03/21/18 Chief Complaint: Shortness of breath This is a pleasant 78-year-old lady patient of Dr. Ruffin. She has underlying history of COPD, chronic diastolic CHF, CAD, hypertension, hyperlipidemia, diabetes mellitus type 2, sleep apnea. She was seen in emergency room secondary to increasing shortness of breath, she was admitted from our facility last month secondary to COPD exacerbation, prior to that admission she was seen in urgent care she was given prednisone and oral antibiotic, she got better however she got jittery and more hyper, she feels like she is floating on air, and more tremors. She saw Dr Pompa and prednisone was decreased to 10 mg twice a day. The shortness of breath is better however it has recurred with some chest pain, and was subsequently seen in the emergency room January 2018 and was sicker recently admitted. She has a nebulizer treatments, there is no new changes medications at home, she has a dog and cat, no foreign travels, patient denies any moldy exposure, patient maintain her nebulizer without any relief, she refused to be on prednisone on her last admission. She was subsequently discharged to home. She comes back now to the emergency room with persistent shortness of breath, dyspnea on exertion, wheezing, she was seen in the emergency room and was subsequently admitted for moderate persistent asthma exacerbation. Patient denies any calf pain however she does have ankle soreness, paroxysms significant cough white sputum sputum, no dysphagia, no aspirativee events. Patient denies any lightheadedness or syncope. No other neurologic deficits. Patient is on DuoNeb at home and Pulmicort 0.5 mg twice a day. Consultation made with Dr. Goff/[facility] pulmonary medicine. Patient was started on IV steroids in the emergency room, and patient is cautious but would give it another chance At her last cardiology workup included echocardiogram October 2017 EF of 55%, moderate diastolic dysfunction, moderate pulmonary hypertension, with RVSP of 50 Review of Systems Constitutional: Reports as per HPI, Reports fatigue, Reports poor appetite, Denies anorexia, Denies chills, Denies chronic headaches, Denies chronic pain, Denies daytime sleepiness, Denies fever, Denies lethargy, Denies malaise, Denies night sweats, Denies sweats, Denies weakness, Denies weight gain, Denies weight loss Ears, nose, mouth and throat: Reports as per HPI, Denies ant. neck pain, Denies bleeding gums, Denies dental pain, Denies dysphagia, Denies epistaxis, Denies headache, Denies hoarseness, Denies mouth pain, Denies nasal congestion, Denies nasal discharge, Denies neck fullness/pressure, Denies neck lump, Denies nose pain, Denies odynophagia, Denies post-nasal drip, Denies sinus pain, Denies sinus pressure, Denies swelling in mouth, Denies swelling in throat, Denies sore throat, Denies vertigo, Denies voice changes Cardiovascular: Reports as per HPI, Denies chest pain, Denies claudication, Denies decreased exercise tolerance, Denies dyspnea on exertion, Denies edema, Denies high blood pressure, Denies irregular heart beat, Denies leg edema, Denies lightheadedness, Denies orthopnea, Denies palpitations, Denies paroxysmal nocturnal dyspnea, Denies phlebitis, Denies rapid heart beat, Denies shortness of breath, Denies syncope Respiratory: Reports as per HPI, Reports congestion, Reports cough with sputum, Reports dyspnea, Reports wheezing Gastrointestinal: Reports as per HPI, Denies abdominal pain, Denies belching, Denies bloating, Denies BRBPR, Denies change in bowel habits, Denies coffee ground emesis, Denies constipation, Denies diarrhea, Denies dyspepsia, Denies early satiety, Denies excessive gas, Denies heartburn, Denies hematemesis, Denies hematochezia, Denies indigestion, Denies jaundice, Denies lactose intolerance, Denies loss of appetite, Denies melena, Denies nausea, Denies vomiting Genitourinary: Reports as per HPI, Denies abnormal vaginal bleeding, Denies decreased libido, Denies difficulty conceiving, Denies difficulty voiding, Denies dysmenorrhea, Denies dyspareunia, Denies dysuria, Denies flank pain, Denies genital sores, Denies hematuria, Denies hot flashes, Denies incomplete emptying, Denies kidney stones, Denies menorrhagia, Denies mixed incontinence, Denies nocturia, Denies pelvic pain, Denies post void dribbling, Denies , Denies prolapse symptoms, Denies stress incontinence, Denies urge incontinence , Denies urgency, Denies urinary frequency, Denies vaginal discharge, Denies vaginal dryness, Denies vaginal itching, Denies vaginal odor Menstruation: Reports as per HPI, Denies amenorrhea, Denies amenorrhea on BC, Denies currently menstrual, Denies cycle < 21 days, Denies cycle > 35 days, Denies cycle variable, Denies menses 1-7 days, Denies menses 8 or > days, Denies menses variable, Denies period heavy, Denies period light, Denies period normal, Denies period spotting, Denies post hysterectomy, Denies postmenopausal , Denies premenarcheal Musculoskeletal: Reports as per HPI, Denies arm numbness/tingling, Denies atrophy, Denies fractures, Denies frequent falls, Denies gait dysfunction, Denies hot joints, Denies leg numbness/tingling, Denies limitation of motion, Denies loss of height, Denies low back pain, Denies morning stiffness, Denies muscle cramps, Denies muscle weakness, Denies myalgias, Denies neck pain, Denies neck stiffness, Denies prior amputations, Denies redness of joints, Denies shooting arm pain, Denies shooting leg pain Integumentary: Reports as per HPI, Denies acne, Denies boils, Denies brittle nails, Denies change in hair/nails, Denies color changes, Denies darkening of skin, Denies depigmentation, Denies dryness, Denies foot/leg ulcers, Denies growths, Denies hirsutism, Denies lesions, Denies onychomycosis, Denies pruritus , Denies rash, Denies sores, Denies striae, Denies unusual bruising, Denies wounds Neurological: Reports as per HPI, Denies aphasia, Denies ataxia, Denies balance difficulties, Denies burning pain, Denies change in mentation, Denies change in smell/taste, Denies change in speech, Denies confusion, Denies convulsions, Denies double vision, Denies gait dysfunction, Denies head injury, Denies headaches, Denies hearing difficulties, Denies lack of coordination, Denies loss of vision, Denies memory loss, Denies migraines, Denies motor disturbance, Denies numbness, Denies paralysis, Denies paresthesias, Denies seizures, Denies sensory deficit, Denies spasticity, Denies syncope, Denies tic, Denies tingling , Denies transient paralysis, Denies tremors, Denies vertigo, Denies weakness, Denies visual changes Psychiatric: Reports as per HPI, Reports anxiety, Reports memory loss, Reports sleep disturbances, Denies anhedonia, Denies anxiety attacks, Denies change in appetite, Denies change in libido, Denies change in sleep habits, Denies confusion, Denies depression, Denies difficulty concentrating, Denies disorientation, Denies hallucinations, Denies hopelessness, Denies hypersomnia, Denies insomnia, Denies irritability, Denies mood swings, Denies paranoia, Denies sadness/tearfulness, Denies suicidal ideation Endocrine: Reports as per HPI, Denies cold intolerance, Denies deepening of the voice, Denies excessive sweating, Denies excessive thirst, Denies fatigue, Denies flushing, Denies heat intolerance, Denies high blood sugars, Denies increase in ring/shoe/hat size, Denies low blood sugars, Denies nocturia, Denies palpitations, Denies polydipsia, Denies polyphagia, Denies polyuria, Denies proptosis, Denies recent glucocorticoid use, Denies thyroid mass, Denies weight change Hematologic/Lymphatic: Reports as per HPI, Denies easy bleeding, Denies easy bruising, Denies lymphadenopathy, Denies lymphedema, Denies thrombophilia Allergic/Immunologic: Reports as per HPI, Reports allergic rhinitis, Reports wheezing, Denies anaphylaxis, Denies angioedema, Denies gluten intolerance, Denies persistent infections, Denies urticaria Past Medical History Past Medical History: Cancer, Heart Failure, COPD, Diabetes Mellitus, GERD/ Reflux, Hypertension, Osteoarthritis (OA), Sleep Apnea/CPAP/BIPAP Additional Past Medical History / Comment(s): CPAP WITH OXYGEN, SKIN CANCER , DIET CONTROLLED DIABETIC , cataracts, past fall fx lt arm. 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 History of Any Multi-Drug Resistant Organisms: None Reported Past Surgical History: Appendectomy, Back Surgery, Heart Catheterization With Stent, Joint Replacement, Orthopedic Surgery Additional Past Surgical History / Comment(s): bilateral hip replacement, right knee replacement, two back surgeries, total 6 cardiac stents Past Anesthesia/Blood Transfusion Reactions: No Reported Reaction Date of Last Stent Placement:: 2010 Past Psychological History: Anxiety, Depression Smoking Status: Former smoker Past Alcohol Use History: Occasional Additional Past Alcohol Use History / Comment(s): STARTED SMOKING AT AGE 16 QUIT SMOKING IN 2001 SMOKED 1 - 1 1/2 PPD ,has an occ drink of alcohol Past Drug Use History: None Reported - Past Family History Mother Family Medical History: CVA/TIA, Diabetes Mellitus, Myocardial Infarction (IA) Father Family Medical History: CVA/TIA, Myocardial Infarction ([place]) Sister(s) Family Medical History: Cancer Additional Family Medical History / Comment(s): 1 sister from lung cancer, 2 sisters had breast cancer Brother(s) Additional Family Medical History / Comment(s): 1 brother from lung cancer and had cardiac problems, another brother had heart problems and stroke Medications and Allergies Home Medications Medication Instructions Recorded Confirmed Type Clopidogrel [Plavix] 75 mg PO HS 02/17/18 03/20/18 History Furosemide [Lasix] 40 mg PO BID 02/17/18 03/20/18 History Lisinopril [Zestril] 10 mg PO HS 02/17/18 03/20/18 History Omeprazole 20 mg PO DAILY 02/17/18 03/20/18 History Rosuvastatin Calcium [Crestor] 40 mg PO HS 02/17/18 03/20/18 History amLODIPine [Norvasc] 5 mg PO HS 02/17/18 03/20/18 History Budesonide [Pulmicort] 0.5 mg INHALATION RT-BID 02/23/18 03/20/18 History Ipratropium-Albuterol Nebulize 3 ml INHALATION RT-QID PRN 02/23/18 03/20/18 History [Duoneb 0.5 mg-3 mg/3 ml Soln] Albuterol Sulfate [Proair 2 puff PO RT-Q4H PRN 03/16/18 03/20/18 History Respiclick] ALPRAZolam [Xanax] 0.5 mg PO BID PRN 03/20/18 03/20/18 History Metoprolol Tartrate [Lopressor] 12.5 mg PO DAILY 03/20/18 03/20/18 History Montelukast Sodium [Singulair] 10 mg PO HS 03/20/18 03/20/18 History Nitroglycerin Sl Tabs [Nitrostat] 0.4 mg PO DIRECTED 03/20/18 03/20/18 History Allergies Allergy/AdvReac Type Severity Reaction Status Date / Time clavulanic acid Allergy Unknown Verified 03/20/18 15:12 diclofenac [From Voltaren] Allergy Unknown Verified 03/20/18 15:12 isosorbide [From Imdur] Allergy Unknown Verified 03/20/18 15:12 levofloxacin [From Levaquin] Allergy Swelling Verified 03/20/18 15:12 metformin Allergy Unknown Verified 03/20/18 15:12 NSAIDS (Non-Steroidal Allergy Unknown Verified 03/20/18 15:12 Anti-Inflamma Penicillins Allergy Unknown Verified 03/20/18 15:12 prednisone Allergy VERY HYPER Verified 03/20/18 15:12 FEELING, EXHAUSTED Quinolones Allergy Unknown Verified 03/20/18 15:12 tramadol [From Ultram] Allergy Unknown Verified 03/20/18 15:12 amoxicillin [From Augmentin] AdvReac Headache Verified 03/20/18 15:12 aspirin AdvReac Headache Verified 03/20/18 15:12 gabapentin AdvReac Headache Verified 03/20/18 15:12 meloxicam [From Mobic] AdvReac Headache Verified 03/20/18 15:12 nabumetone [From Relafen] AdvReac Headache Verified 03/20/18 15:12 nickel AdvReac Headache Verified 03/20/18 15:12 ranolazine [From Ranexa] AdvReac Headache Verified 03/20/18 15:12 Physical Exam Vitals: Vital Signs Temp Pulse Pulse Resp BP BP Pulse Ox 03/21/18 14:42 98.6 F 67 16 111/59 97 03/21/18 11:56 76 03/21/18 11:44 76 03/21/18 08:00 84 20 03/21/18 07:57 97.9 F 84 20 107/59 97 03/21/18 07:39 84 03/21/18 07:18 88 96 03/21/18 05:48 97.9 F 98 17 108/68 98 03/21/18 03:24 80 03/21/18 03:13 88 03/20/18 23:51 85 03/20/18 23:37 85 03/20/18 22:48 97.2 F L 60 18 151/72 96 03/20/18 19:57 75 03/20/18 19:42 75 03/20/18 18:33 98.1 F 03/20/18 18:20 75 26 H 157/60 97 03/20/18 18:09 78 03/20/18 18:00 78 24 110/58 93 L 03/20/18 17:20 65 24 125/65 93 L 03/20/18 17:00 50 L 28 H 125/68 94 L 03/20/18 15:43 61 03/20/18 15:40 70 25 H 143/54 100 03/20/18 15:30 58 L 03/20/18 15:20 59 L 21 121/74 95 Intake and Output 03/20/18 03/21/18 03/21/18 22:59 06:59 14:59 Intake Total 673 Balance 673 Intake: Oral 673 Other: # Voids 1 2 1 Weight 61 kg - Constitutional General appearance: cooperative, no acute distress - EENT Eyes: anicteric sclerae, EOMI, PERRLA, dentition normal ENT: NA/AT, normal oropharynx - Neck Neck: normal ROM - Respiratory Respiratory: bilateral: wheezing, negative: CTA, diminished, dullness, rales, prolonged expiration, prolonged inspiration - Cardiovascular Rhythm: regular Heart sounds: normal: S1, S2 Abnormal Heart Sounds: no systolic murmur, no diastolic murmur, no rub, no S3 Gallop, no S4 Gallop, no click, no other - Gastrointestinal General gastrointestinal: normal bowel sounds, soft - Integumentary Integumentary: decreased turgor, normal - Neurologic Neurologic: CNII-XII intact - Musculoskeletal Musculoskeletal: generalized weakness, strength equal bilaterally Results CBC & Chem 7: 03/20/18 15:04 03/20/18 15:04 Labs: Abnormal Lab Results - Last 24 Hours (Table) 03/20/18 03/20/18 03/20/18 Range/Units 15:04 15:04 20:37 Hct 47.1 H (34.0-46.0) % Glucose 100 H (74-99) mg/dL POC Glucose (mg/dL) 201 H (75-99) mg/dL 03/21/18 03/21/18 Range/Units 07:29 12:12 Hct (34.0-46.0) % Glucose (74-99) mg/dL POC Glucose (mg/dL) 165 H 162 H (75-99) mg/dL Laboratory Results WBC 9.7 k/uL (3.8-10.6) 03/20/18 15:04 RBC 5.11 m/uL (3.80-5.40) 03/20/18 15:04 Hgb 14.9 gm/dL (11.4-16.0) 03/20/18 15:04 Hct 47.1 % (34.0-46.0) H 03/20/18 15:04 MCV 92.2 fL (80.0-100.0) 03/20/18 15:04 MCH 29.1 pg (25.0-35.0) 03/20/18 15:04 MCHC 31.5 g/dL (31.0-37.0) 03/20/18 15:04 RDW 13.9 % (11.5-15.5) 03/20/18 15:04 Plt Count 313 k/uL (150-450) 03/20/18 15:04 Neutrophils % 72 % 03/20/18 15:04 Lymphocytes % 13 % 03/20/18 15:04 Monocytes % 6 % 03/20/18 15:04 Eosinophils % 7 % 03/20/18 15:04 Basophils % 1 % 03/20/18 15:04 Neutrophils # 6.9 k/uL (1.3-7.7) 03/20/18 15:04 Lymphocytes # 1.3 k/uL (1.0-4.8) 03/20/18 15:04 Monocytes # 0.5 k/uL (0-1.0) 03/20/18 15:04 Eosinophils # 0.7 k/uL (0-0.7) 03/20/18 15:04 Basophils # 0.1 k/uL (0-0.2) 03/20/18 15:04 PT 9.8 sec (9.0-12.0) 03/20/18 15:04 INR 1.0 (<1.2) 03/20/18 15:04 APTT 24.6 sec (22.0-30.0) 03/20/18 15:04 Sodium 141 mmol/L (137-145) 03/20/18 15:04 Potassium 4.3 mmol/L (3.5-5.1) 03/20/18 15:04 Chloride 102 mmol/L (98-107) 03/20/18 15:04 Carbon Dioxide 28 mmol/L (22-30) 03/20/18 15:04 Anion Gap 11 mmol/L 03/20/18 15:04 BUN 12 mg/dL (7-17) 03/20/18 15:04 Creatinine 0.75 mg/dL (0.52-1.04) 03/20/18 15:04 Est GFR (CKD-EPI)AfAm 90 (>60 ml/min/1.73 sqM) 03/20/18 15:04 Est GFR (CKD-EPI)NonAf 78 (>60 ml/min/1.73 sqM) 03/20/18 15:04 Glucose 100 mg/dL (74-99) H 03/20/18 15:04 POC Glucose (mg/dL) 162 mg/dL (75-99) H 03/21/18 12:12 POC Glu Bilingual Operator ID [employer] 03/21/18 12:12 Calcium 9.6 mg/dL (8.4-10.2) 03/20/18 15:04 Magnesium 2.1 mg/dL (1.6-2.3) 03/20/18 15:04 Total Bilirubin 0.7 mg/dL (0.2-1.3) 03/20/18 15:04 AST 22 U/L (14-36) 03/20/18 15:04 ALT 26 U/L (9-52) 03/20/18 15:04 Alkaline Phosphatase 89 U/L (38-126) 03/20/18 15:04 Total Creatine Kinase 73 U/L (30-135) 03/20/18 15:04 CK-MB (CK-2) 1.2 ng/mL (0.0-2.4) 03/20/18 15:04 CK-MB (CK-2) Rel Index 1.6 03/20/18 15:04 Troponin I 0.028 ng/mL (0.000-0.034) 03/20/18 15:04 NT-Pro-B Natriuret Pep 222 pg/mL 03/20/18 15:04 Total Protein 7.2 g/dL (6.3-8.2) 03/20/18 15:04 Albumin 4.4 g/dL (3.5-5.0) 03/20/18 15:04 Thrombosis Risk Factor Assmnt - DVT/VTE Prophylaxis DVT/VTE Prophylaxis: Pharmacologic Prophylaxis ordered - Choose All That Apply Any of the Below Risk Factors Present?: Yes Each Factor Represents 1 point: Abnormal pulmonary function (COPD) Other Risk Factors: No Each Risk Factor Represents 3 Points: Age 75 years or older Other congenital or acquired thrombophilia - If yes, enter type in comment: No Thrombosis Risk Factor Assessment Total Risk Factor Score: 4 Thrombosis Risk Factor Assessment Level: Moderate Risk Assessment and Plan Plan: 1. Shortness of breath. Secondary to COPD exacerbation moderate persistent asthma, as well as acute on chronic pulmonary hypertension. In the past Patient did not tolerate the prednisone 50 mg secondary to jitteriness, IV Solu Medrol 60 mg every 6 hours which would decrease to 40 mg every 6 hours to avoid the side effect of her steroid jitteriness,. Patient was on DuoNeb, 4 times a day, we increased the Pulmicort at 0.5 mg twice a day, Chest x-ray failed to reveal any acute disease, BNP was normal. Continue Singulair 3. History of CAD with multiple stent placement in the past, medical managment currently on plavix crestor norvasc lisinopril 4. Chronic diastolic CHF , on lasix, 40 bid no adjustment of diuretics 5. Diabetes mellitus type 2 not on any medication, unknown complications 6 secondary Pulmonary hypertension severe. RV systolic pressure of 50 contributing to chronic dyspnea. Continue on Lasix 40 mg twice a day might benefit from pulm hypertension clinic, pulmonary to reevaluate this need for any future needs for sleep apnea 7 Chronic hypoxemic respiratory failure requiring supplemental oxygen, acute exacerbation DVT prophylaxis GI prophylaxis heparin subcu Protonix
[2018-03-21] MEDS: FLUTICASONE 50MCG/SPRAY NASAL 16GM EA NOSTRIL SCH (15:20)
--- NOTE | 2018-03-21 17:32 | P.CNPUL ---
History of Present Illness Consult date: 03/21/18 Reason for consult: dyspnea, cough, COPD Chief complaint: Progressive increasing shortness of breath for 3-4 days History of present illness: 78-year-old female with complex past medical history of the type 2 diabetes mellitus with complication along with sleep disorder breathing and sleep apnea, patient has some component underlying dementia as well also issues associated coronary artery disease hypertension hypertensive heart failure and severe COPD patient the was hospitalized secondary due to COPD exacerbation was doing fairly well until about 3-4 days ago started having increased cough and congestion patient was treated with oral antibiotics as well as oh oral prednisone without any significant relief due to persistent symptoms patient decided to come into emergency department where she was seen eval examined and eventually has been admitted into the hospital Review of Systems All systems: negative Past Medical History Past Medical History: Cancer, Heart Failure, COPD, Diabetes Mellitus, GERD/ Reflux, Hypertension, Osteoarthritis (OA), Sleep Apnea/CPAP/BIPAP Additional Past Medical History / Comment(s): CPAP WITH OXYGEN, SKIN CANCER , DIET CONTROLLED DIABETIC , cataracts, past fall fx lt arm. had a pne vaccine with in last 2 years not sure of date, engineering writer unable to verify date at time of admit. History of Any Multi-Drug Resistant Organisms: None Reported Past Surgical History: Appendectomy, Back Surgery, Heart Catheterization With Stent, Joint Replacement, Orthopedic Surgery Additional Past Surgical History / Comment(s): bilateral hip replacement, right knee replacement, two back surgeries, total 6 cardiac stents Past Anesthesia/Blood Transfusion Reactions: No Reported Reaction Date of Last Stent Placement:: 2010 Past Psychological History: Anxiety, Depression Smoking Status: Former smoker Past Alcohol Use History: Occasional Additional Past Alcohol Use History / Comment(s): STARTED SMOKING AT AGE 16 QUIT SMOKING IN 2001 SMOKED 1 - 1 1/2 PPD ,has an occ drink of alcohol Past Drug Use History: None Reported - Past Family History Mother Family Medical History: CVA/TIA, Diabetes Mellitus, Myocardial Infarction (OK) Father Family Medical History: CVA/TIA, Myocardial Infarction (OK) Sister(s) Family Medical History: Cancer Additional Family Medical History / Comment(s): 1 sister from lung cancer, 2 sisters had breast cancer Brother(s) Additional Family Medical History / Comment(s): 1 brother from lung cancer and had cardiac problems, another brother had heart problems and stroke Medications and Allergies Home Medications Medication Instructions Recorded Confirmed Type Clopidogrel [Plavix] 75 mg PO HS 02/17/18 03/20/18 History Furosemide [Lasix] 40 mg PO BID 02/17/18 03/20/18 History Lisinopril [Zestril] 10 mg PO HS 02/17/18 03/20/18 History Omeprazole 20 mg PO DAILY 02/17/18 03/20/18 History Rosuvastatin Calcium [Crestor] 40 mg PO HS 02/17/18 03/20/18 History amLODIPine [Norvasc] 5 mg PO HS 02/17/18 03/20/18 History Budesonide [Pulmicort] 0.5 mg INHALATION RT-BID 02/23/18 03/20/18 History Ipratropium-Albuterol Nebulize 3 ml INHALATION RT-QID PRN 02/23/18 03/20/18 History [Duoneb 0.5 mg-3 mg/3 ml Soln] Albuterol Sulfate [Proair 2 puff PO RT-Q4H PRN 03/16/18 03/20/18 History Respiclick] ALPRAZolam [Xanax] 0.5 mg PO BID PRN 03/20/18 03/20/18 History Metoprolol Tartrate [Lopressor] 12.5 mg PO DAILY 03/20/18 03/20/18 History Montelukast Sodium [Singulair] 10 mg PO HS 03/20/18 03/20/18 History Nitroglycerin Sl Tabs [Nitrostat] 0.4 mg PO DIRECTED 03/20/18 03/20/18 History Allergies Allergy/AdvReac Type Severity Reaction Status Date / Time clavulanic acid Allergy Unknown Verified 03/20/18 15:12 diclofenac [From Voltaren] Allergy Unknown Verified 03/20/18 15:12 isosorbide [From Imdur] Allergy Unknown Verified 03/20/18 15:12 levofloxacin [From Levaquin] Allergy Swelling Verified 03/20/18 15:12 metformin Allergy Unknown Verified 03/20/18 15:12 NSAIDS (Non-Steroidal Allergy Unknown Verified 03/20/18 15:12 Anti-Inflamma Penicillins Allergy Unknown Verified 03/20/18 15:12 prednisone Allergy VERY HYPER Verified 03/20/18 15:12 FEELING, EXHAUSTED Quinolones Allergy Unknown Verified 03/20/18 15:12 tramadol [From Ultram] Allergy Unknown Verified 03/20/18 15:12 amoxicillin [From Augmentin] AdvReac Headache Verified 03/20/18 15:12 aspirin AdvReac Headache Verified 03/20/18 15:12 gabapentin AdvReac Headache Verified 03/20/18 15:12 meloxicam [From Mobic] AdvReac Headache Verified 03/20/18 15:12 nabumetone [From Relafen] AdvReac Headache Verified 03/20/18 15:12 nickel AdvReac Headache Verified 03/20/18 15:12 ranolazine [From Ranexa] AdvReac Headache Verified 03/20/18 15:12 Physical Exam Vitals: Vital Signs Temp Pulse Pulse Resp BP BP Pulse Ox 03/21/18 17:08 98.2 F 71 19 111/69 94 L 03/21/18 16:19 19 03/21/18 16:02 74 03/21/18 15:52 70 03/21/18 14:57 67 16 03/21/18 14:42 98.6 F 67 16 111/59 97 03/21/18 11:56 76 03/21/18 11:44 76 03/21/18 08:00 84 20 03/21/18 07:57 97.9 F 84 20 107/59 97 03/21/18 07:39 84 03/21/18 07:18 88 96 03/21/18 05:48 97.9 F 98 17 108/68 98 03/21/18 03:24 80 03/21/18 03:13 88 03/20/18 23:51 85 03/20/18 23:37 85 03/20/18 22:48 97.2 F L 60 18 151/72 96 03/20/18 19:57 75 03/20/18 19:42 75 03/20/18 18:33 98.1 F 03/20/18 18:20 75 26 H 157/60 97 03/20/18 18:09 78 03/20/18 18:00 78 24 110/58 93 L Intake and Output 03/21/18 03/21/18 03/21/18 06:59 14:59 22:59 Intake Total 673 Balance 673 Intake: Oral 673 Other: Voiding Method Toilet Bedside Commode # Voids 2 1 2 Weight 61 kg - Constitutional General appearance: cooperative, no acute distress - EENT Eyes: anicteric sclerae, EOMI, PERRLA, dentition normal ENT: NA/AT, normal oropharynx - Neck Neck: normal ROM - Respiratory Respiratory: bilateral: wheezing, negative: CTA, diminished, dullness, rales, prolonged expiration, prolonged inspiration - Cardiovascular Rhythm: regular Heart sounds: normal: S1, S2 Abnormal Heart Sounds: no systolic murmur, no diastolic murmur, no rub, no S3 Gallop, no S4 Gallop, no click, no other - Gastrointestinal General gastrointestinal: normal bowel sounds, soft - Integumentary Integumentary: decreased turgor, normal - Neurologic Neurologic: CNII-XII intact - Musculoskeletal Musculoskeletal: generalized weakness, strength equal bilaterally Results - Laboratory Findings CBC and BMP: 03/20/18 15:04 03/20/18 15:04 PT/INR, D-dimer PT 9.8 sec (9.0-12.0) 03/20/18 15:04 INR 1.0 (<1.2) 03/20/18 15:04 Abnormal lab findings: Abnormal Labs 03/20/18 03/20/18 03/20/18 15:04 15:04 20:37 Hct 47.1 H Glucose 100 H POC Glucose (mg/dL) 201 H 03/21/18 03/21/18 07:29 12:12 Hct Glucose POC Glucose (mg/dL) 165 H 162 H - Diagnostic Findings Chest x-ray: report reviewed, image reviewed (Note is made of nodular changes in the apex which can be perform an outpatient basis) Assessment and Plan Assessment: Acute COPD exacerbation Pulmonary hypertension related to severe COPD Coronary artery disease with history of multiple stent placement Chronic diastolic heart failure Type 2 diabetes mellitus Pulmonary hypertension Likely sleep disorder breathing and sleep apnea Plan: IV steroids Breathing treatments Continue home medications Remains stable possible discharge in next 24-48 hours Time with Patient: Greater than 30
[2018-03-21] MEDS: methylPREDNISolone SOD SUCCI 40 MG/ML 1 ML VIAL IV SCH ×2 (18:21→23:28)
[2018-03-21] MEDS: CLOPIDOGREL 75 MG TAB PO SCH (20:17)
[2018-03-21] MEDS: MONTELUKAST 10 MG TAB PO SCH (20:17)
[2018-03-21] MEDS: ATORVASTATIN 80 MG TAB PO SCH (20:17)
[2018-03-21] MEDS: LISINOPRIL 10 MG TAB PO SCH (20:17)
[2018-03-21 20:31] LABS: Glucose,Whole Blood 190 mg/dL (75-99)
[2018-03-21 20:35] LABS: Hemoglobin A1C 6.2 % (4.0-6.0)
[2018-03-21 20:50] LABS: Glucose,Whole Blood 176 mg/dL (75-99)
[2018-03-21] MEDS: amLODIPine 5 MG TAB PO SCH (21:05)
[2018-03-22] MEDS: IPRATROPIUM-ALBUTEROL 3 ML NEB INHALATION SCH ×5 (04:18→20:48)
[2018-03-22] MEDS: methylPREDNISolone SOD SUCCI 40 MG/ML 1 ML VIAL IV SCH ×3 (05:47→17:31)
[2018-03-22] MEDS: BUDESONIDE 0.5 MG/2 ML NEBU INHALATION SCH ×2 (07:05→20:48)
[2018-03-22 07:46] LABS: Glucose,Whole Blood 189 mg/dL (75-99)
[2018-03-22] MEDS: FLUTICASONE 50MCG/SPRAY NASAL 16GM EA NOSTRIL SCH (08:06)
[2018-03-22] MEDS: PANTOPRAZOLE 40 MG TABLET PO SCH (08:07)
[2018-03-22] MEDS: INSULIN ASPART 100 UNIT/ML 1 ML 10 ML VIAL SQ SCH ×4 (08:07→21:22)
[2018-03-22] MEDS: METOPROLOL TARTRATE 12.5 MG TAB PO SCH (08:07)
[2018-03-22] MEDS: FUROSEMIDE 40 MG TAB PO SCH ×2 (08:07→15:50)
[2018-03-22] MEDS: HEPARIN SODIUM,PORCINE 5,000 UNIT/ML 1 ML VIAL SQ SCH ×2 (08:07→21:22)
[2018-03-22 12:27] LABS: Glucose,Whole Blood 168 mg/dL (75-99)
--- NOTE | 2018-03-22 13:47 | P.PN ---
Subjective Progress Note Date: 03/22/18 Principal diagnosis: Acute COPD exacerbation, tracheobronchitis, severe COPD, pulmonary hypertension , chronic diastolic heart failure, coronary artery disease and history of multiple stent placement 03/22/2018, patient seen eval examined during rounds clinically patient has been doing slightly better with still congested sputum has been sent for Gram stain and culture results are pending blood culture so far no growth him a labs reviewed medications reviewed, given that continued to have significant symptoms and abnormal findings on the chest x-ray laboratory data computed tomography scan of the chest without contrast 78-year-old female with complex past medical history of the type 2 diabetes mellitus with complication along with sleep disorder breathing and sleep apnea, patient has some component underlying dementia as well also issues associated coronary artery disease hypertension hypertensive heart failure and severe COPD patient the was hospitalized secondary due to COPD exacerbation was doing fairly well until about 3-4 days ago started having increased cough and congestion patient was treated with oral antibiotics as well as oh oral prednisone without any significant relief due to persistent symptoms patient decided to come into emergency department where she was seen eval examined and eventually has been admitted into the hospital Objective - Vital Signs Vital signs: Vital Signs Temp 97.1 F L 03/22/18 07:37 Pulse 80 03/22/18 11:20 Resp 23 03/22/18 07:37 BP 110/59 03/22/18 07:37 Pulse Ox 94 L 03/22/18 07:37 Intake & Output 03/21/18 03/22/18 03/22/18 18:59 06:59 18:59 Intake Total 673 Balance 673 Weight 60.5 kg Intake: Oral 673 Other: Voiding Method Toilet # Voids 2 2 - Exam - Constitutional General appearance: cooperative, no acute distress - EENT Eyes: anicteric sclerae, EOMI, PERRLA, dentition normal ENT: NA/AT, normal oropharynx - Neck Neck: normal ROM - Respiratory Respiratory: bilateral: wheezing, negative: CTA, diminished, dullness, rales, prolonged expiration, prolonged inspiration - Cardiovascular Rhythm: regular Heart sounds: normal: S1, S2 Abnormal Heart Sounds: no systolic murmur, no diastolic murmur, no rub, no S3 Gallop, no S4 Gallop, no click, no other - Gastrointestinal General gastrointestinal: normal bowel sounds, soft - Integumentary Integumentary: decreased turgor, normal - Neurologic Neurologic: CNII-XII intact - Musculoskeletal Musculoskeletal: generalized weakness, strength equal bilaterally - Labs CBC & Chem 7: 03/20/18 15:04 03/20/18 15:04 Labs: Abnormal Lab Results - Last 24 Hours (Table) 03/20/18 03/21/18 03/21/18 Range/Units 15:04 17:05 20:48 POC Glucose (mg/dL) 190 H 176 H (75-99) mg/dL Hemoglobin A1c 6.2 H (4.0-6.0) % 03/22/18 03/22/18 Range/Units 07:44 12:24 POC Glucose (mg/dL) 189 H 168 H (75-99) mg/dL Hemoglobin A1c (4.0-6.0) % Microbiology - Last 24 Hours (Table) 03/20/18 15:04 Blood Culture - Preliminary Blood No Growth after 24 hours Assessment and Plan Assessment: Acute COPD exacerbation Nodular density bilateral upper lobes Pulmonary hypertension related to severe COPD Coronary artery disease with history of multiple stent placement Chronic diastolic heart failure Type 2 diabetes mellitus Pulmonary hypertension Likely sleep disorder breathing and sleep apnea Plan: CT chest without IV contrast IV steroids Breathing treatments Continue home medications Remains stable possible discharge in next 24-48 hours Time with Patient: Greater than 30
--- NOTE | 2018-03-22 14:49 | CT ---
EXAMINATION TYPE: CT chest wo con DATE OF EXAM: 03/22/2018 COMPARISON: 10/26/2017 HISTORY: COPD exacerbation CT DLP: 509 mGycm. Automated Exposure Control for Dose Reduction was Utilized. TECHNIQUE: CT scan of the thorax is performed without IV contrast. FINDINGS: LUNGS: There is a 3 mm solid pulmonary nodule within the right lower lobe on series 3 image 41. This is stable from the prior exam. Mild to moderate centrilobular emphysematous changes are present. Pleu ral-parenchymal scarring is seen in the lingula. No focal consolidation, pleural effusion or pneumoth orax. No significant air bronchogram cuffing. MEDIASTINUM: Lack of IV contrast is noted to limit evaluation for mediastinal and especially hilar ad enopathy. Atherosclerosis of the thoracic aorta is seen with calcified mediastinal lymph nodes and se orquidea three-vessel coronary artery calcifications. Heart and ascending thoracic aorta are within blade l limits of size. There are no definitive greater than 1 cm hilar or mediastinal lymph nodes. No ca rdiomegaly or pericardial effusion is seen. OTHER: Benign calcified parenchymal splenic granulomas are seen. Extensive atherosclerosis of the vis ualized upper abdominal aorta and its branches is noted. Few colonic diverticula are incidentally see n. Extensive left glenohumeral arthropathy and moderate right glenohumeral arthropathy are seen. Mode rate multilevel degenerative changes of the thoracic spine are present. Dextroscoliotic curvature of the thoracic spine is present. IMPRESSION: 1. Mild to moderate centrilobular emphysema in this patient with a history of COPD exacerbation. No f ocal consolidation to suggest pneumonia and no pneumothorax. 2. Severe three-vessel coronary artery calcifications, marker of coronary artery disease. 3. Stable 3 mm right basilar pulmonary nodule. Follow-up CT in 12 months could ensure stability.
--- NOTE | 2018-03-22 14:58 | P.PN ---
Subjective Progress Note Date: 03/22/18 This is a pleasant 78-year-old lady patient of Dr. Ruffin. She has underlying history of COPD, chronic diastolic CHF, CAD, hypertension, hyperlipidemia, diabetes mellitus type 2, sleep apnea. She was seen in emergency room secondary to increasing shortness of breath, she was admitted from our facility last month secondary to COPD exacerbation, prior to that admission she was seen in urgent care she was given prednisone and oral antibiotic, she got better however she got jittery and more hyper, she feels like she is floating on air, and more tremors. She saw Dr Pompa and prednisone was decreased to 10 mg twice a day. The shortness of breath is better however it has recurred with some chest pain, and was subsequently seen in the emergency room January 2018 and was sicker recently admitted. She has a nebulizer treatments, there is no new changes medications at home, she has a dog and cat, no foreign travels, patient denies any moldy exposure, patient maintain her nebulizer without any relief, she refused to be on prednisone on her last admission. She was subsequently discharged to home. She comes back now to the emergency room with persistent shortness of breath, dyspnea on exertion, wheezing, she was seen in the emergency room and was subsequently admitted for moderate persistent asthma exacerbation. Patient denies any calf pain however she does have ankle soreness, paroxysms significant cough white sputum sputum, no dysphagia, no aspirativee events. Patient denies any lightheadedness or syncope. No other neurologic deficits. Patient is on DuoNeb at home and Pulmicort 0.5 mg twice a day. Consultation made with Dr. Goff/[facility] pulmonary medicine. Patient was started on IV steroids in the emergency room, and patient is cautious but would give it another chance At her last cardiology workup included echocardiogram October 2017 EF of 55%, moderate diastolic dysfunction, moderate pulmonary hypertension, with RVSP of 50 03/22: Patient is followed by Dr. MERNA Strong/Dr. Butcher. Patient is currently on Solu-Medrol 40 mg every 6 hours. Patient has been afebrile. CT of the chest shows mild to moderate central lobular emphysema and the patient with history of COPD exacerbation. No focal consolidation to suggest pneumonia or pneumothorax. Severe three-vessel coronary artery calcifications. Stable 3 mm right basilar pulmonary nodule. Recommend follow-up CT in 12 months. Her breathing status is improving. Patient is given a repeat sputum was a cement. She states she was able able to sleep until she received medications. She does state she'll sleeps with dogs and cats in her room but is never been ALLERGY tested. Recommend ALLERGY testing as an outpatient. Pulse ox is 94% on 2 L nasal cannula. Capillary blood glucose running between 176 and 190 secondary to steroids. Patient continues to have cough. She did have a bowel movement last evening. Review Of Systems: Constitutional: No fever, no chills, no night sweats. No weight change. + weakness. No daytime sleepiness. EENT: No headache. No blurred vision or double vision, no loss of vision. No loss of Hearing, no ringing in the ears, no dizziness. No nasal drainage or congestion. No epistaxis. No sore throat. Lungs: + shortness of breath, +cough, + sputum production. Cardiovascular: No chest pain, no lower extremity edema. No lightheadedness or dizziness. No syncopal episodes. Abdominal: No abdominal pain. No nausea, vomiting. No diarrhea. No constipation. No bloody or tarry stools. Genitourinary: No dysuria, increased frequency, urgency. No urinary retention. Musculoskeletal: No myalgias. No muscle weakness, no gait dysfunction, no frequent falls. No back pain. No neck pain. Integumentary: No wounds, no lesions. No rash or pruritus. No unusual bruising. No change in hair or nails. Neurologic: No aphasia. No facial droop. No change in mentation. No head injury. No headache. No paralysis. No paresthesia. Psychiatric: No depression. No anxiety. No mood swings. Endocrine: +abnormal blood sugars. Objective - Vital Signs Vital signs: Vital Signs Temp 97.1 F L 03/22/18 07:37 Pulse 92 03/22/18 07:37 Resp 23 03/22/18 07:37 BP 110/59 03/22/18 07:37 Pulse Ox 94 L 03/22/18 07:37 Intake & Output 03/21/18 03/22/18 03/22/18 18:59 06:59 18:59 Intake Total 673 Balance 673 Weight 60.5 kg Intake: Oral 673 Other: Voiding Method Toilet # Voids 2 2 - Exam General appearance: cooperative, no acute distress, patient sitting on the end of the bed - EENT Eyes: anicteric sclerae, EOMI, PERRLA, dentition normal ENT: NA/AT, normal oropharynx - Neck Neck: normal ROM - Respiratory Respiratory: bilateral: wheezing, negative: CTA, diminished, dullness, rales, prolonged expiration, prolonged inspiration - Cardiovascular Rhythm: regular Heart sounds: normal: S1, S2 Abnormal Heart Sounds: no systolic murmur, no diastolic murmur, no rub, no S3 Gallop, no S4 Gallop, no click, no other - Gastrointestinal General gastrointestinal: normal bowel sounds, soft - Integumentary Integumentary: decreased turgor, normal - Neurologic Neurologic: CNII-XII intact - Musculoskeletal Musculoskeletal: generalized weakness, strength equal bilaterally - Labs CBC & Chem 7: 03/20/18 15:04 03/20/18 15:04 Labs: Abnormal Lab Results - Last 24 Hours (Table) 03/20/18 03/21/18 03/21/18 Range/Units 15:04 12:12 17:05 POC Glucose (mg/dL) 162 H 190 H (75-99) mg/dL Hemoglobin A1c 6.2 H (4.0-6.0) % 03/21/18 03/22/18 Range/Units 20:48 07:44 POC Glucose (mg/dL) 176 H 189 H (75-99) mg/dL Hemoglobin A1c (4.0-6.0) % Microbiology - Last 24 Hours (Table) 03/20/18 15:04 Blood Culture - Preliminary Blood No Growth after 24 hours Assessment and Plan Plan: 1. Shortness of breath. Secondary to COPD exacerbation moderate persistent asthma, as well as acute on chronic pulmonary hypertension. In the past Patient did not tolerate the prednisone 50 mg secondary to jitteriness, IV Solu Medrol 60 mg every 6 hours which would decrease to 40 mg every 6 hours to avoid the side effect of her steroid jitteriness,. Patient was on DuoNeb, 4 times a day, we increased the Pulmicort at 0.5 mg twice a day, Continue Singulair 3. History of CAD with multiple stent placement in the past, medical managment currently on plavix crestor norvasc lisinopril 4. Chronic diastolic heart failure, on lasix, 40 bid no adjustment of diuretics 5. Diabetes mellitus type 2 not on any medication, unknown complications 6 secondary Pulmonary hypertension severe. RV systolic pressure of 50 contributing to chronic dyspnea. Continue on Lasix 40 mg twice a day might benefit from pulm hypertension clinic, pulmonary to reevaluate this need for any future needs for sleep apnea 7 Chronic hypoxemic respiratory failure requiring supplemental oxygen DVT prophylaxis GI prophylaxis heparin subcu Protonix Discharge plan: Home tomorrow. Impression and plan of care have been directed as dictated by the signing physician. Samantha Romeo nurse practitioner acting as scribe for signing physician.
[2018-03-22 17:57] LABS: Glucose,Whole Blood 170 mg/dL (75-99)
[2018-03-22 21:10] LABS: Glucose,Whole Blood 119 mg/dL (75-99)
[2018-03-22] MEDS: LISINOPRIL 10 MG TAB PO SCH (21:21)
[2018-03-22] MEDS: amLODIPine 5 MG TAB PO SCH (21:21)
[2018-03-22] MEDS: CLOPIDOGREL 75 MG TAB PO SCH (21:21)
[2018-03-22] MEDS: ATORVASTATIN 80 MG TAB PO SCH (21:21)
[2018-03-22] MEDS: ALPRAZolam 0.5 MG TAB PO PRN (21:21)
[2018-03-22] MEDS: MONTELUKAST 10 MG TAB PO SCH (21:21)
[2018-03-23] MEDS: methylPREDNISolone SOD SUCCI 40 MG/ML 1 ML VIAL IV SCH ×3 (00:21→12:36)
[2018-03-23] MEDS: IPRATROPIUM-ALBUTEROL 3 ML NEB INHALATION SCH ×6 (00:25→19:34)
[2018-03-23 07:20] LABS: Glucose,Whole Blood 177 mg/dL (75-99)
[2018-03-23] MEDS: METOPROLOL TARTRATE 12.5 MG TAB PO SCH (08:10)
[2018-03-23] MEDS: FLUTICASONE 50MCG/SPRAY NASAL 16GM EA NOSTRIL SCH (08:12)
[2018-03-23] MEDS: HEPARIN SODIUM,PORCINE 5,000 UNIT/ML 1 ML VIAL SQ SCH ×2 (08:12→20:48)
[2018-03-23] MEDS: PANTOPRAZOLE 40 MG TABLET PO SCH (08:12)
[2018-03-23] MEDS: FUROSEMIDE 40 MG TAB PO SCH ×2 (08:12→17:01)
[2018-03-23] MEDS: INSULIN ASPART 100 UNIT/ML 1 ML 10 ML VIAL SQ SCH ×4 (08:13→20:49)
[2018-03-23] MEDS: BUDESONIDE 0.5 MG/2 ML NEBU INHALATION SCH (09:19)
[2018-03-23 12:24] LABS: Glucose,Whole Blood 177 mg/dL (75-99)
--- NOTE | 2018-03-23 15:10 | P.PN ---
Subjective Progress Note Date: 03/23/18 This is a pleasant 78-year-old lady patient of Dr. Ruffin. She has underlying history of COPD, chronic diastolic CHF, CAD, hypertension, hyperlipidemia, diabetes mellitus type 2, sleep apnea. She was seen in emergency room secondary to increasing shortness of breath, she was admitted from our facility last month secondary to COPD exacerbation, prior to that admission she was seen in urgent care she was given prednisone and oral antibiotic, she got better however she got jittery and more hyper, she feels like she is floating on air, and more tremors. She saw Dr Pompa and prednisone was decreased to 10 mg twice a day. The shortness of breath is better however it has recurred with some chest pain, and was subsequently seen in the emergency room January 2018 and was sicker recently admitted. She has a nebulizer treatments, there is no new changes medications at home, she has a dog and cat, no foreign travels, patient denies any moldy exposure, patient maintain her nebulizer without any relief, she refused to be on prednisone on her last admission. She was subsequently discharged to home. She comes back now to the emergency room with persistent shortness of breath, dyspnea on exertion, wheezing, she was seen in the emergency room and was subsequently admitted for moderate persistent asthma exacerbation. Patient denies any calf pain however she does have ankle soreness, paroxysms significant cough white sputum sputum, no dysphagia, no aspirativee events. Patient denies any lightheadedness or syncope. No other neurologic deficits. Patient is on DuoNeb at home and Pulmicort 0.5 mg twice a day. Consultation made with Dr. Goff/Deb Strong pulmonary medicine. Patient was started on IV steroids in the emergency room, and patient is cautious but would give it another chance At her last cardiology workup included echocardiogram October 2017 EF of 55%, moderate diastolic dysfunction, moderate pulmonary hypertension, with RVSP of 50 03/22: Patient is followed by Dr. MERNA Strong/Dr. Butcher. Patient is currently on Solu-Medrol 40 mg every 6 hours. Patient has been afebrile. CT of the chest shows mild to moderate central lobular emphysema and the patient with history of COPD exacerbation. No focal consolidation to suggest pneumonia or pneumothorax. Severe three-vessel coronary artery calcifications. Stable 3 mm right basilar pulmonary nodule. Recommend follow-up CT in 12 months. Her breathing status is improving. Patient is given a repeat sputum was a cement. She states she was able able to sleep until she received medications. She does state she'll sleeps with dogs and cats in her room but is never been ALLERGY tested. Recommend ALLERGY testing as an outpatient. Pulse ox is 94% on 2 L nasal cannula. Capillary blood glucose running between 176 and 190 secondary to steroids. Patient continues to have cough. She did have a bowel movement last evening. 03/23: Patient has been afebrile and hemodynamically stable. Pulse ox 95% on room air. She continues to have coughing spells but seems to be improving slowly. She continues to have sputum production and wheezing. She complains of a raspy voice. She was awakened during the night several times due to coughing. Pulmicort will be increased to 1 mg twice daily and Solu-Medrol decreased to 40 mg every 8 with plan start prednisone in the morning. Tessalon added. Review Of Systems: Constitutional: No fever, no chills, no night sweats. No weight change. + weakness. EENT: No headache. No blurred vision or double vision, no loss of vision. No loss of Hearing, no ringing in the ears, no dizziness. No nasal drainage or congestion. No epistaxis. No sore throat. Lungs: + shortness of breath, +cough, + sputum production. Cardiovascular: No chest pain, no lower extremity edema. No lightheadedness or dizziness. No syncopal episodes. Abdominal: No abdominal pain. No nausea, vomiting. No diarrhea. No constipation. No bloody or tarry stools. Genitourinary: No dysuria, increased frequency, urgency. No urinary retention. Musculoskeletal: No myalgias. No muscle weakness, no gait dysfunction, no frequent falls. No back pain. No neck pain. Integumentary: No wounds, no lesions. No rash or pruritus. No unusual bruising. No change in hair or nails. Neurologic: No aphasia. No facial droop. No change in mentation. No head injury. No headache. No paralysis. No paresthesia. Psychiatric: No depression. No anxiety. No mood swings. Endocrine: +abnormal blood sugars. Objective - Vital Signs Vital signs: Vital Signs Temp 97.8 F 03/23/18 14:53 Pulse 97 03/23/18 14:53 Resp 18 03/23/18 14:53 BP 133/73 03/23/18 14:53 Pulse Ox 94 L 03/23/18 14:53 Intake & Output 03/22/18 03/23/18 03/23/18 18:59 06:59 18:59 Intake Total 850 200 240 Balance 850 200 240 Weight 61.5 kg Intake: Oral 850 200 240 Other: Voiding Method Toilet Bedside Commode # Voids 2 1 1 # Bowel Movements 0 0 - Exam General appearance: cooperative, no acute distress, patient sitting on the end of the bed - EENT Eyes: anicteric sclerae, EOMI, PERRLA, dentition normal ENT: NA/AT, normal oropharynx - Neck Neck: normal ROM - Respiratory Respiratory: bilateral: wheezing, negative: CTA, diminished, dullness, rales, prolonged expiration, prolonged inspiration, + productive cough - Cardiovascular Rhythm: regular Heart sounds: normal: S1, S2 Abnormal Heart Sounds: no systolic murmur, no diastolic murmur, no rub, no S3 Gallop, no S4 Gallop, no click, no other - Gastrointestinal General gastrointestinal: normal bowel sounds, soft - Integumentary Integumentary: decreased turgor, normal - Neurologic Neurologic: CNII-XII intact - Musculoskeletal Musculoskeletal: generalized weakness, strength equal bilaterally - Labs CBC & Chem 7: 03/20/18 15:04 03/20/18 15:04 Labs: Abnormal Lab Results - Last 24 Hours (Table) 03/22/18 03/22/18 03/23/18 Range/Units 17:28 20:56 07:18 POC Glucose (mg/dL) 170 H 119 H 177 H (75-99) mg/dL 03/23/18 Range/Units 12:23 POC Glucose (mg/dL) 177 H (75-99) mg/dL Microbiology - Last 24 Hours (Table) 03/22/18 11:30 Gram Stain - Preliminary Sputum Sputum Culture - Preliminary 03/20/18 15:04 Blood Culture - Preliminary Blood No Growth after 48 hours Assessment and Plan Plan: 1. Shortness of breath. Secondary to COPD exacerbation moderate persistent asthma, as well as acute on chronic pulmonary hypertension. In the past Patient did not tolerate the prednisone 50 mg secondary to jitteriness, IV Solu Medrol decreased to 40 mg every 8 hours and to start prednisone tomorrow which would decrease to 40 mg every 6 hours to avoid the side effect of her steroid jitteriness,. Patient was on DuoNeb, 4 times a day, we increased the Pulmicort increased to 1 mg twice a day, Continue Dionne Rangel added 3. History of CAD with multiple stent placement in the past, medical managment currently on plavix crestor norvasc lisinopril 4. Chronic diastolic heart failure, on lasix, 40 bid no adjustment of diuretics 5. Diabetes mellitus type 2 not on any medication, unknown complications 6 secondary Pulmonary hypertension severe. RV systolic pressure of 50 contributing to chronic dyspnea. Continue on Lasix 40 mg twice a day might benefit from pulm hypertension clinic, pulmonary to reevaluate this need for any future needs for sleep apnea 7 Chronic hypoxemic respiratory failure requiring supplemental oxygen DVT prophylaxis GI prophylaxis heparin subcu Protonix Discharge plan: Home with a clear and home care tomorrow. Impression and plan of care have been directed as dictated by the signing physician. Samantha Romeo nurse practitioner acting as scribe for signing physician.
[2018-03-23] MEDS ORDERED: methylPREDNISolone SOD SUCCI 40 MG/ML 1 ML VIAL IV SCH (16:00)
[2018-03-23 17:00] LABS: Glucose,Whole Blood 223 mg/dL (75-99)
[2018-03-23] MEDS: BENZONATATE 100 MG CAP PO SCH ×2 (17:01→20:47)
[2018-03-23] MEDS: BUDESONIDE 1 MG/2 ML NEBU INHALATION SCH (19:34)
[2018-03-23 20:44] LABS: Glucose,Whole Blood 161 mg/dL (75-99)
[2018-03-23] MEDS: MONTELUKAST 10 MG TAB PO SCH (20:46)
[2018-03-23] MEDS: CLOPIDOGREL 75 MG TAB PO SCH (20:47)
[2018-03-23] MEDS: amLODIPine 5 MG TAB PO SCH (20:47)
[2018-03-23] MEDS: LISINOPRIL 10 MG TAB PO SCH (20:47)
[2018-03-23] MEDS: ATORVASTATIN 80 MG TAB PO SCH (20:47)
[2018-03-23] MEDS: ALPRAZolam 0.5 MG TAB PO PRN (20:51)
[2018-03-24] MEDS: IPRATROPIUM-ALBUTEROL 3 ML NEB INHALATION SCH ×7 (00:12→23:25)
[2018-03-24] MEDS: BUDESONIDE 1 MG/2 ML NEBU INHALATION SCH ×2 (07:15→19:50)
[2018-03-24 07:46] LABS: Glucose,Whole Blood 159 mg/dL (75-99)
[2018-03-24] MEDS: METOPROLOL TARTRATE 12.5 MG TAB PO SCH (08:21)
[2018-03-24] MEDS: HEPARIN SODIUM,PORCINE 5,000 UNIT/ML 1 ML VIAL SQ SCH ×2 (08:21→21:03)
[2018-03-24] MEDS: BENZONATATE 100 MG CAP PO SCH ×3 (08:21→21:03)
[2018-03-24] MEDS: PANTOPRAZOLE 40 MG TABLET PO SCH (08:21)
[2018-03-24] MEDS: INSULIN ASPART 100 UNIT/ML 1 ML 10 ML VIAL SQ SCH ×4 (08:21→21:07)
[2018-03-24] MEDS: FUROSEMIDE 40 MG TAB PO SCH ×2 (08:21→15:09)
[2018-03-24] MEDS: predniSONE 20 MG TAB PO SCH (08:21)
[2018-03-24] MEDS: FLUTICASONE 50MCG/SPRAY NASAL 16GM EA NOSTRIL SCH (08:21)
[2018-03-24 08:22] LABS: HCT 44.8 % (34.0-46.0); HGB 14.2 gm/dL (11.4-16.0); MCH 29.2 pg (25.0-35.0); MCHC 31.6 g/dL (31.0-37.0); MCV 92.5 fL (80.0-100.0); Mean Platelet Volume 7.8; Platelet Count 304 k/uL (150-450); RBC 4.85 m/uL (3.80-5.40); RDW 13.9 % (11.5-15.5); WBC 15.2 k/uL (3.8-10.6)
[2018-03-24 08:38] LABS: Anion Gap 10 mmol/L; Blood Urea Nitrogen 32 mg/dL (7-17); Calcium 8.9 mg/dL (8.4-10.2); Carbon Dioxide 26 mmol/L (22-30); Chloride 104 mmol/L (98-107); Glucose 132 mg/dL (74-99); Potassium 3.7 mmol/L (3.5-5.1); Sodium 140 mmol/L (137-145)
[2018-03-24 11:59] LABS: Glucose,Whole Blood 189 mg/dL (75-99)
--- NOTE | 2018-03-24 13:41 | P.PN ---
Subjective Progress Note Date: 03/24/18 This is a pleasant 78-year-old lady patient of Dr. Ruffin. She has underlying history of COPD, chronic diastolic CHF, CAD, hypertension, hyperlipidemia, diabetes mellitus type 2, sleep apnea. She was seen in emergency room secondary to increasing shortness of breath, she was admitted from our facility last month secondary to COPD exacerbation, prior to that admission she was seen in urgent care she was given prednisone and oral antibiotic, she got better however she got jittery and more hyper, she feels like she is floating on air, and more tremors. She saw Dr Pompa and prednisone was decreased to 10 mg twice a day. The shortness of breath is better however it has recurred with some chest pain, and was subsequently seen in the emergency room January 2018 and was sicker recently admitted. She has a nebulizer treatments, there is no new changes medications at home, she has a dog and cat, no foreign travels, patient denies any moldy exposure, patient maintain her nebulizer without any relief, she refused to be on prednisone on her last admission. She was subsequently discharged to home. She comes back now to the emergency room with persistent shortness of breath, dyspnea on exertion, wheezing, she was seen in the emergency room and was subsequently admitted for moderate persistent asthma exacerbation. Patient denies any calf pain however she does have ankle soreness, paroxysms significant cough white sputum sputum, no dysphagia, no aspirativee events. Patient denies any lightheadedness or syncope. No other neurologic deficits. Patient is on DuoNeb at home and Pulmicort 0.5 mg twice a day. Consultation made with Dr. Goff/Deb Strong pulmonary medicine. Patient was started on IV steroids in the emergency room, and patient is cautious but would give it another chance At her last cardiology workup included echocardiogram October 2017 EF of 55%, moderate diastolic dysfunction, moderate pulmonary hypertension, with RVSP of 50 03/22: Patient is followed by Dr. MERNA Strong/Dr. Butcher. Patient is currently on Solu-Medrol 40 mg every 6 hours. Patient has been afebrile. CT of the chest shows mild to moderate central lobular emphysema and the patient with history of COPD exacerbation. No focal consolidation to suggest pneumonia or pneumothorax. Severe three-vessel coronary artery calcifications. Stable 3 mm right basilar pulmonary nodule. Recommend follow-up CT in 12 months. Her breathing status is improving. Patient is given a repeat sputum was a cement. She states she was able able to sleep until she received medications. She does state she'll sleeps with dogs and cats in her room but is never been ALLERGY tested. Recommend ALLERGY testing as an outpatient. Pulse ox is 94% on 2 L nasal cannula. Capillary blood glucose running between 176 and 190 secondary to steroids. Patient continues to have cough. She did have a bowel movement last evening. 03/23: Patient has been afebrile and hemodynamically stable. Pulse ox 95% on room air. She continues to have coughing spells but seems to be improving slowly. She continues to have sputum production and wheezing. She complains of a raspy voice. She was awakened during the night several times due to coughing. Pulmicort will be increased to 1 mg twice daily and Solu-Medrol decreased to 40 mg every 8 with plan start prednisone in the morning. Tessalon added. 03/24: White count is 15.2, creatinine 0.73. Sputum is showing a few normal phuc. Blood cultures no growth after 72 hours. Patient states she has not been sleeping well but has been taking Xanax. Melatonin will be added. She continues to have cough but some cough and breathing status is improving. Patient started on oral prednisone this morning We'll plan to monitor overnight and probable discharge tomorrow. Review Of Systems: Constitutional: No fever, no chills, no night sweats. No weight change. + weakness. EENT: No headache. No blurred vision or double vision, no loss of vision. No loss of Hearing, no ringing in the ears, no dizziness. No nasal drainage or congestion. No epistaxis. No sore throat. Lungs: + shortness of breath, +cough, + sputum production. Cardiovascular: No chest pain, no lower extremity edema. No lightheadedness or dizziness. No syncopal episodes. Abdominal: No abdominal pain. No nausea, vomiting. No diarrhea. No constipation. No bloody or tarry stools. Genitourinary: No dysuria, increased frequency, urgency. No urinary retention. Musculoskeletal: No myalgias. No muscle weakness, no gait dysfunction, no frequent falls. No back pain. No neck pain. Integumentary: No wounds, no lesions. No rash or pruritus. No unusual bruising. No change in hair or nails. Neurologic: No aphasia. No facial droop. No change in mentation. No head injury. No headache. No paralysis. No paresthesia. Psychiatric: No depression. No anxiety. No mood swings. Endocrine: +abnormal blood sugars. + Insomnia Objective - Vital Signs Vital signs: Vital Signs Temp 98.3 F 03/24/18 06:10 Pulse 74 03/24/18 12:20 Resp 18 03/24/18 08:00 BP 110/66 03/24/18 06:10 Pulse Ox 96 03/24/18 06:10 Intake & Output 03/23/18 03/24/18 03/24/18 18:59 06:59 18:59 Intake Total 240 700 240 Balance 240 700 240 Weight 62 kg Intake: Oral 240 700 240 Other: Voiding Method Toilet # Voids 1 2 # Bowel Movements 0 - Exam General appearance: cooperative, no acute distress, patient sitting on edge of the bed - EENT Eyes: anicteric sclerae, EOMI, PERRLA, dentition normal ENT: NA/AT, normal oropharynx - Neck Neck: normal ROM - Respiratory Respiratory: bilateral: wheezing, negative: CTA, diminished, dullness, rales, prolonged expiration, prolonged inspiration, + productive cough - Cardiovascular Rhythm: regular Heart sounds: normal: S1, S2 Abnormal Heart Sounds: no systolic murmur, no diastolic murmur, no rub, no S3 Gallop, no S4 Gallop, no click, no other - Gastrointestinal General gastrointestinal: normal bowel sounds, soft - Integumentary Integumentary: decreased turgor, normal - Neurologic Neurologic: CNII-XII intact - Musculoskeletal Musculoskeletal: generalized weakness improved, strength equal bilaterally - Labs CBC & Chem 7: 03/24/18 07:43 03/24/18 07:43 Labs: Abnormal Lab Results - Last 24 Hours (Table) 03/23/18 03/23/18 03/24/18 Range/Units 16:58 20:38 07:17 WBC (3.8-10.6) k/uL BUN (7-17) mg/dL Glucose (74-99) mg/dL POC Glucose (mg/dL) 223 H 161 H 159 H (75-99) mg/dL 03/24/18 03/24/18 03/24/18 Range/Units 07:43 07:43 11:49 WBC 15.2 H (3.8-10.6) k/uL BUN 32 H (7-17) mg/dL Glucose 132 H (74-99) mg/dL POC Glucose (mg/dL) 189 H (75-99) mg/dL Microbiology - Last 24 Hours (Table) 03/22/18 11:30 Gram Stain - Final Sputum Sputum Culture - Final 03/20/18 15:04 Blood Culture - Preliminary Blood No Growth after 72 hours Assessment and Plan Plan: 1. Shortness of breath. Secondary to COPD exacerbation moderate persistent asthma, as well as acute on chronic pulmonary hypertension. In the past Patient did not tolerate the prednisone 50 mg secondary to jitteriness, continue oral prednisone. Patient was on DuoNeb, 4 times a day, we increased the Pulmicort increased to 1 mg twice a day, Continue Singulair Teskeylaon added 3. History of CAD with multiple stent placement in the past, medical managment currently on plavix crestor norvasc lisinopril 4. Chronic diastolic heart failure, on lasix 40 bid no adjustment of diuretics 5. Diabetes mellitus type 2 not on any medication, continue NovoLog scale 6 secondary Pulmonary hypertension severe. RV systolic pressure of 50 contributing to chronic dyspnea. Continue on Lasix 40 mg twice a day might benefit from pulm hypertension clinic, pulmonary to reevaluate this need for any future needs for sleep apnea 7 Chronic hypoxemic respiratory failure requiring supplemental oxygen DVT prophylaxis GI prophylaxis heparin subcu Protonix Discharge plan: Home with [facility] care tomorrow. Impression and plan of care have been directed as dictated by the signing physician. Samantha Romeo nurse practitioner acting as scribe for signing physician.
--- NOTE | 2018-03-24 13:47 | P.DS ---
Providers Date of admission: 03/20/18 17:43 Expected date of discharge: 03/25/18 Attending physician: Evan Blake Consults: 03/20/18 17:39 Consult Physician Routine Consulting Provider: Kevin Strong Consult Reason/Comments: COPD exacerbation Do you want consulting provider notified?: Yes Primary care physician: Katlin Mary Rutan Hospital Course: This is a pleasant 78-year-old lady patient of Dr. Ruffin. She has underlying history of COPD, chronic diastolic CHF, CAD, hypertension, hyperlipidemia, diabetes mellitus type 2, sleep apnea. She was seen in emergency room secondary to increasing shortness of breath, she was admitted from our facility last month secondary to COPD exacerbation, prior to that admission she was seen in urgent care she was given prednisone and oral antibiotic, she got better however she got jittery and more hyper, she feels like she is floating on air, and more tremors. She saw Dr Pompa and prednisone was decreased to 10 mg twice a day. The shortness of breath is better however it has recurred with some chest pain, and was subsequently seen in the emergency room January 2018 and was sicker recently admitted. She has a nebulizer treatments, there is no new changes medications at home, she has a dog and cat, no foreign travels, patient denies any moldy exposure, patient maintain her nebulizer without any relief, she refused to be on prednisone on her last admission. She was subsequently discharged to home. She comes back now to the emergency room with persistent shortness of breath, dyspnea on exertion, wheezing, she was seen in the emergency room and was subsequently admitted for moderate persistent asthma exacerbation. Patient denies any calf pain however she does have ankle soreness, paroxysms significant cough white sputum sputum, no dysphagia, no aspirativee events. Patient denies any lightheadedness or syncope. No other neurologic deficits. Patient is on DuoNeb at home and Pulmicort 0.5 mg twice a day. Consultation made with Dr. Alberto Strong pulmonary medicine. Patient was started on IV steroids in the emergency room, and patient is cautious but would give it another chance At her last cardiology workup included echocardiogram October 2017 EF of 55%, moderate diastolic dysfunction, moderate pulmonary hypertension, with RVSP of 50 03/22: Patient is followed by Dr. MERNA Strong/Dr. Butcher. Patient is currently on Solu-Medrol 40 mg every 6 hours. Patient has been afebrile. CT of the chest shows mild to moderate central lobular emphysema and the patient with history of COPD exacerbation. No focal consolidation to suggest pneumonia or pneumothorax. Severe three-vessel coronary artery calcifications. Stable 3 mm right basilar pulmonary nodule. Recommend follow-up CT in 12 months. Her breathing status is improving. Patient is given a repeat sputum was a cement. She states she was able able to sleep until she received medications. She does state she'll sleeps with dogs and cats in her room but is never been ALLERGY tested. Recommend ALLERGY testing as an outpatient. Pulse ox is 94% on 2 L nasal cannula. Capillary blood glucose running between 176 and 190 secondary to steroids. Patient continues to have cough. She did have a bowel movement last evening. 03/23: Patient has been afebrile and hemodynamically stable. Pulse ox 95% on room air. She continues to have coughing spells but seems to be improving slowly. She continues to have sputum production and wheezing. She complains of a raspy voice. She was awakened during the night several times due to coughing. Pulmicort will be increased to 1 mg twice daily and Solu-Medrol decreased to 40 mg every 8 with plan start prednisone in the morning. Tessalon added. 03/24: White count is 15.2, creatinine 0.73. Sputum is showing a few normal phuc. Blood cultures no growth after 72 hours. Patient states she has not been sleeping well but has been taking Xanax. Melatonin will be added. She continues to have cough but some cough and breathing status is improving. Patient started on oral prednisone this morning We'll plan to monitor overnight and probable discharge tomorrow. 03/25: Discharge diagnoses: 1. COPD exacerbation, moderate persistent asthma, as well as acute on chronic pulmonary hypertension. 2. History of CAD with multiple stent placement in the past 3. Chronic diastolic heart failure 4. Diabetes mellitus type 2 5. Secondary Pulmonary hypertension severe. RV systolic pressure of 50 6. Chronic hypoxemic respiratory failure requiring supplemental oxygen Discharge plan: Home with [facility] Impression and plan of care have been directed as dictated by the signing physician. Samantha Romeo nurse practitioner acting as scribe for signing physician. Patient Condition at Discharge: Good Plan - Discharge Summary Discharge Rx Participant: No New Discharge Prescriptions: No Action Rosuvastatin Calcium [Crestor] 40 mg PO HS Clopidogrel [Plavix] 75 mg PO HS amLODIPine [Norvasc] 5 mg PO HS Omeprazole 20 mg PO DAILY Lisinopril [Zestril] 10 mg PO HS Furosemide [Lasix] 40 mg PO BID Ipratropium-Albuterol Nebulize [Duoneb 0.5 mg-3 mg/3 ml Soln] 3 ml INHALATION RT-QID PRN PRN Reason: Shortness Of Breath Budesonide [Pulmicort] 0.5 mg INHALATION RT-BID Albuterol Sulfate [Proair Respiclick] 2 puff PO RT-Q4H PRN PRN Reason: Shortness Of Breath Montelukast Sodium [Singulair] 10 mg PO HS ALPRAZolam [Xanax] 0.5 mg PO BID PRN PRN Reason: Anxiety Nitroglycerin Sl Tabs [Nitrostat] 0.4 mg PO DIRECTED Metoprolol Tartrate [Lopressor] 12.5 mg PO DAILY Discharge Medication List Clopidogrel [Plavix] 75 mg PO HS 02/17/18 [History] Furosemide [Lasix] 40 mg PO BID 02/17/18 [History] Lisinopril [Zestril] 10 mg PO HS 02/17/18 [History] Omeprazole 20 mg PO DAILY 02/17/18 [History] Rosuvastatin Calcium [Crestor] 40 mg PO HS 02/17/18 [History] amLODIPine [Norvasc] 5 mg PO HS 02/17/18 [History] Budesonide [Pulmicort] 0.5 mg INHALATION RT-BID 02/23/18 [History] Ipratropium-Albuterol Nebulize [Duoneb 0.5 mg-3 mg/3 ml Soln] 3 ml INHALATION RT -QID PRN 02/23/18 [History] Albuterol Sulfate [Proair Respiclick] 2 puff PO RT-Q4H PRN 03/16/18 [History] ALPRAZolam [Xanax] 0.5 mg PO BID PRN 03/20/18 [History] Metoprolol Tartrate [Lopressor] 12.5 mg PO DAILY 03/20/18 [History] Montelukast Sodium [Singulair] 10 mg PO HS 03/20/18 [History] Nitroglycerin Sl Tabs [Nitrostat] 0.4 mg PO DIRECTED 03/20/18 [History] Follow up Appointment(s)/Referral(s): Katlin Ruffin MD [Primary Care Provider] - 1-2 days [facility], [NON-STAFF] - As Needed
--- NOTE | 2018-03-24 16:25 | P.PN ---
Subjective Progress Note Date: 03/23/18 (Late entry note) Principal diagnosis: Acute COPD exacerbation, tracheobronchitis, severe COPD, pulmonary hypertension , chronic diastolic heart failure, coronary artery disease and history of multiple stent placement 03/23/2018, patient seen eval reexamined during the rounds clinically patient is slightly better cough congestion shortness present improved but is still have ongoing severe dyspnea on exertion or activity, phlegm is still present thick purulent, culture results and reports are pending, labs reviewed medications reviewed him a computed tomography scan of the chest performed for nodular density reviewed there is a 3 mm solid pulmonary nodule in the right lower lobe noted which is stable from the past, mild to moderate central lobar emphysematous changes were noted, liver parenchymal scarring seen in the lingula , 03/22/2018, patient seen eval examined during rounds clinically patient has been doing slightly better with still congested sputum has been sent for Gram stain and culture results are pending blood culture so far no growth him a labs reviewed medications reviewed, given that continued to have significant symptoms and abnormal findings on the chest x-ray laboratory data computed tomography scan of the chest without contrast 78-year-old female with complex past medical history of the type 2 diabetes mellitus with complication along with sleep disorder breathing and sleep apnea, patient has some component underlying dementia as well also issues associated coronary artery disease hypertension hypertensive heart failure and severe COPD patient the was hospitalized secondary due to COPD exacerbation was doing fairly well until about 3-4 days ago started having increased cough and congestion patient was treated with oral antibiotics as well as oh oral prednisone without any significant relief due to persistent symptoms patient decided to come into emergency department where she was seen eval examined and eventually has been admitted into the hospital Objective - Vital Signs Vital signs: Vital Signs Temp 96.8 F L 03/24/18 15:00 Pulse 77 03/24/18 16:03 Resp 16 03/24/18 16:03 BP 125/62 03/24/18 15:00 Pulse Ox 97 03/24/18 15:00 Intake & Output 03/23/18 03/24/18 03/24/18 18:59 06:59 18:59 Intake Total 240 700 240 Balance 240 700 240 Weight 62 kg Intake: Oral 240 700 240 Other: Voiding Method Toilet # Voids 1 2 6 # Bowel Movements 0 - Exam - Constitutional General appearance: cooperative, no acute distress - EENT Eyes: anicteric sclerae, EOMI, PERRLA, dentition normal ENT: NA/AT, normal oropharynx - Neck Neck: normal ROM - Respiratory Respiratory: bilateral: wheezing, negative: CTA, diminished, dullness, rales, prolonged expiration, prolonged inspiration - Cardiovascular Rhythm: regular Heart sounds: normal: S1, S2 Abnormal Heart Sounds: no systolic murmur, no diastolic murmur, no rub, no S3 Gallop, no S4 Gallop, no click, no other - Gastrointestinal General gastrointestinal: normal bowel sounds, soft - Integumentary Integumentary: decreased turgor, normal - Neurologic Neurologic: CNII-XII intact - Musculoskeletal Musculoskeletal: generalized weakness, strength equal bilaterally - Labs CBC & Chem 7: 03/24/18 07:43 03/24/18 07:43 Labs: Abnormal Lab Results - Last 24 Hours (Table) 03/23/18 03/23/18 03/24/18 Range/Units 16:58 20:38 07:17 WBC (3.8-10.6) k/uL BUN (7-17) mg/dL Glucose (74-99) mg/dL POC Glucose (mg/dL) 223 H 161 H 159 H (75-99) mg/dL 03/24/18 03/24/18 03/24/18 Range/Units 07:43 07:43 11:49 WBC 15.2 H (3.8-10.6) k/uL BUN 32 H (7-17) mg/dL Glucose 132 H (74-99) mg/dL POC Glucose (mg/dL) 189 H (75-99) mg/dL Microbiology - Last 24 Hours (Table) 03/22/18 11:30 Gram Stain - Final Sputum Sputum Culture - Final 03/20/18 15:04 Blood Culture - Preliminary Blood No Growth after 72 hours Assessment and Plan Assessment: Acute COPD exacerbation Nodular density bilateral upper lobes Right lower lobe 3 mm solid nodule Pulmonary hypertension related to severe COPD Coronary artery disease with history of multiple stent placement Chronic diastolic heart failure Type 2 diabetes mellitus Pulmonary hypertension Likely sleep disorder breathing and sleep apnea Plan: CT chest without IV contrast results reviewed IV steroids Breathing treatments Continue home medications Patient to undergo follow-up computed tomography scan in a year Time with Patient: Greater than 30
--- NOTE | 2018-03-24 16:27 | P.PN ---
Subjective Progress Note Date: 03/24/18 Principal diagnosis: Acute COPD exacerbation, tracheobronchitis, severe COPD, pulmonary hypertension , chronic diastolic heart failure, coronary artery disease and history of multiple stent placement 03/24/2018, patient seen eval examined during the rounds still of ongoing cough and shortness of breath or urinary plans were to discharge this patient later on today but it appears that due to ongoing system will likely keep her another day we'll continue steroids breathing treatment continue current supportive care , labs reviewed medications reviewed reviewed computed tomography scan finding as well 03/23/2018, patient seen eval reexamined during the rounds clinically patient is slightly better cough congestion shortness present improved but is still have ongoing severe dyspnea on exertion or activity, phlegm is still present thick purulent, culture results and reports are pending, labs reviewed medications reviewed him a computed tomography scan of the chest performed for nodular density reviewed there is a 3 mm solid pulmonary nodule in the right lower lobe noted which is stable from the past, mild to moderate central lobar emphysematous changes were noted, liver parenchymal scarring seen in the lingula , 03/22/2018, patient seen eval examined during rounds clinically patient has been doing slightly better with still congested sputum has been sent for Gram stain and culture results are pending blood culture so far no growth him a labs reviewed medications reviewed, given that continued to have significant symptoms and abnormal findings on the chest x-ray laboratory data computed tomography scan of the chest without contrast 78-year-old female with complex past medical history of the type 2 diabetes mellitus with complication along with sleep disorder breathing and sleep apnea, patient has some component underlying dementia as well also issues associated coronary artery disease hypertension hypertensive heart failure and severe COPD patient the was hospitalized secondary due to COPD exacerbation was doing fairly well until about 3-4 days ago started having increased cough and congestion patient was treated with oral antibiotics as well as oh oral prednisone without any significant relief due to persistent symptoms patient decided to come into emergency department where she was seen eval examined and eventually has been admitted into the hospital Objective - Vital Signs Vital signs: Vital Signs Temp 96.8 F L 03/24/18 15:00 Pulse 79 03/24/18 16:14 Resp 16 03/24/18 16:14 BP 125/62 03/24/18 15:00 Pulse Ox 97 03/24/18 15:00 Intake & Output 03/23/18 03/24/18 03/24/18 18:59 06:59 18:59 Intake Total 240 700 240 Balance 240 700 240 Weight 62 kg Intake: Oral 240 700 240 Other: Voiding Method Toilet # Voids 1 2 6 # Bowel Movements 0 - Exam - Constitutional General appearance: cooperative, no acute distress - EENT Eyes: anicteric sclerae, EOMI, PERRLA, dentition normal ENT: NA/AT, normal oropharynx - Neck Neck: normal ROM - Respiratory Respiratory: bilateral: wheezing, negative: CTA, diminished, dullness, rales, prolonged expiration, prolonged inspiration - Cardiovascular Rhythm: regular Heart sounds: normal: S1, S2 Abnormal Heart Sounds: no systolic murmur, no diastolic murmur, no rub, no S3 Gallop, no S4 Gallop, no click, no other - Gastrointestinal General gastrointestinal: normal bowel sounds, soft - Integumentary Integumentary: decreased turgor, normal - Neurologic Neurologic: CNII-XII intact - Musculoskeletal Musculoskeletal: generalized weakness, strength equal bilaterally - Labs CBC & Chem 7: 03/24/18 07:43 03/24/18 07:43 Labs: Abnormal Lab Results - Last 24 Hours (Table) 03/23/18 03/23/18 03/24/18 Range/Units 16:58 20:38 07:17 WBC (3.8-10.6) k/uL BUN (7-17) mg/dL Glucose (74-99) mg/dL POC Glucose (mg/dL) 223 H 161 H 159 H (75-99) mg/dL 03/24/18 03/24/18 03/24/18 Range/Units 07:43 07:43 11:49 WBC 15.2 H (3.8-10.6) k/uL BUN 32 H (7-17) mg/dL Glucose 132 H (74-99) mg/dL POC Glucose (mg/dL) 189 H (75-99) mg/dL Microbiology - Last 24 Hours (Table) 03/22/18 11:30 Gram Stain - Final Sputum Sputum Culture - Final 03/20/18 15:04 Blood Culture - Preliminary Blood No Growth after 72 hours Assessment and Plan Assessment: Acute COPD exacerbation Nodular density bilateral upper lobes Right lower lobe 3 mm solid nodule Pulmonary hypertension related to severe COPD Coronary artery disease with history of multiple stent placement Chronic diastolic heart failure Type 2 diabetes mellitus Pulmonary hypertension Likely sleep disorder breathing and sleep apnea Plan: Agree with extending discharge for another day as patient is still significantly symptomatic will continue current course of therapy fully likely patient will be more stable next [address] chest without IV contrast results reviewed IV steroids Breathing treatments Continue home medications Patient to undergo follow-up computed tomography scan in a year Time with Patient: Greater than 30
[2018-03-24 17:09] LABS: Glucose,Whole Blood 164 mg/dL (75-99)
[2018-03-24 20:40] LABS: Glucose,Whole Blood 275 mg/dL (75-99)
[2018-03-24] MEDS ORDERED: MELATONIN 3 MG TABLET PO SCH (21:00)
[2018-03-24] MEDS: LISINOPRIL 10 MG TAB PO SCH (21:03)
[2018-03-24] MEDS: ATORVASTATIN 80 MG TAB PO SCH (21:03)
[2018-03-24] MEDS: MONTELUKAST 10 MG TAB PO SCH (21:03)
[2018-03-24] MEDS: amLODIPine 5 MG TAB PO SCH (21:03)
[2018-03-24] MEDS: CLOPIDOGREL 75 MG TAB PO SCH (21:03)
[2018-03-25] MEDS: IPRATROPIUM-ALBUTEROL 3 ML NEB INHALATION SCH ×2 (03:44→07:35)
[2018-03-25 07:05] LABS: Glucose,Whole Blood 112 mg/dL (75-99)
[2018-03-25] MEDS: INSULIN ASPART 100 UNIT/ML 1 ML 10 ML VIAL SQ SCH (07:13)
[2018-03-25] MEDS: BUDESONIDE 1 MG/2 ML NEBU INHALATION SCH (07:37)
[2018-03-25 08:02] VITALS: BP 120/62; PULSE 68; RESP 16; TEMP 98.1
[2018-03-25] MEDS: FLUTICASONE 50MCG/SPRAY NASAL 16GM EA NOSTRIL SCH (08:16)
[2018-03-25] MEDS: HEPARIN SODIUM,PORCINE 5,000 UNIT/ML 1 ML VIAL SQ SCH (08:17)
[2018-03-25] MEDS: FUROSEMIDE 40 MG TAB PO SCH (08:17)
[2018-03-25] MEDS: PANTOPRAZOLE 40 MG TABLET PO SCH (08:17)
[2018-03-25] MEDS: METOPROLOL TARTRATE 12.5 MG TAB PO SCH (08:17)
[2018-03-25] MEDS: BENZONATATE 100 MG CAP PO SCH (08:18)
[2018-03-25] MEDS: predniSONE 20 MG TAB PO SCH (08:18)
[2018-03-25 08:53] LABS: Potassium 3.2 mmol/L (3.5-5.1)
--- NOTE | 2018-03-25 14:11 | PN ---
PROGRESS NOTE DATE OF SERVICE: 03/25/2018 This patient was seen again on 03/25/2018. She has been hemodynamically stable. She is less short of breath. On physical examination her vitals are stable. She is afebrile. Her chest reveals wheeze only on forced expiration. Cardiovascular system reveals an S1, S2. No S3. No S4. Abdomen is soft. There is no pedal edema. IMPRESSION AT THIS TIME: 1. Severe eosinophilic asthma with acute exacerbation. 2. Baseline chronic obstructive pulmonary disease. 3. Coronary artery disease. 4. Congestive heart failure. Continue her on steroids, which can be tapered as an outpatient. Keep her on Singulair and aerosolized steroids. She may be a candidate for anti-eosinophilic treatment in the outpatient setting. She was counseled regarding this condition. We will follow her in the office setting in the next 48 hours. MMSWATHIL / MELISAN: [id number] /
== END 2018-03-25 11:58 | disposition home health service (06) | DRG 191 ==
LOC: EC 14:44 → 4MS4W 17:43
PROVIDERS: ADMIT Internal Medicine Geriatric Medicine; ATTEND Internal Medicine Geriatric Medicine
DX: J43.2 Centrilobular emphysema (principal); J45.41 Moderate persistent asthma with (acute) exacerbation; I50.32 Chronic diastolic (congestive) heart failure; J96.11 Chronic respiratory failure with hypoxia; E11.8 Type 2 diabetes mellitus with unspecified complications; E78.5 Hyperlipidemia, unspecified; F03.90 Unspecified dementia, unspecified severity, without behavioral disturbance, psychotic disturbance, mood disturbance, and anxiety; F32.9 Major depressive disorder, single episode, unspecified; F41.9 Anxiety disorder, unspecified; G47.33 Obstructive sleep apnea (adult) (pediatric); I11.0 Hypertensive heart disease with heart failure; I25.10 Atherosclerotic heart disease of native coronary artery without angina pectoris; I27.29 Other secondary pulmonary hypertension; K21.9 Gastro-esophageal reflux disease without esophagitis; T38.0X5A Adverse effect of glucocorticoids and synthetic analogues, initial encounter; Z80.1 Family history of malignant neoplasm of trachea, bronchus and lung; Z80.3 Family history of malignant neoplasm of breast; Z82.3 Family history of stroke; Z82.49 Family history of ischemic heart disease and other diseases of the circulatory system; Z83.3 Family history of diabetes mellitus; Z85.828 Personal history of other malignant neoplasm of skin; Z87.891 Personal history of nicotine dependence; Z95.5 Presence of coronary angioplasty implant and graft; Z96.643 Presence of artificial hip joint, bilateral; Z96.651 Presence of right artificial knee joint; Z88.6 Allergy status to analgesic agent; Z88.1 Allergy status to other antibiotic agents; Z88.0 Allergy status to penicillin; Z88.8 Allergy status to other drugs, medicaments and biological substances
CPT/HCPCS: 36415; 71046; 71250; 80048; 80053; 82550; 82553; 83036; 83735; 83880; 84484; 85025; 85027; 85610; 85730; 87040; 87070; 87205; 93005; 94640; 94664; 94760; 99285

== ENCOUNTER 2018-09-22 19:08 | Emergency (ER) | payer MEDICARE ==
--- NOTE | 2018-09-22 20:16 | ED ---
General Adult HPI - General Chief complaint: Shortness of Breath Stated complaint: Diff Breathing, fever Time Seen by Provider: 09/22/18 19:44 Source: patient Mode of arrival: ambulatory - History of Present Illness Initial comments: Dictation was produced using [employer] dictation software. please excuse any grammatical, word or spelling errors. Chief Complaint: 78-year-old female past medical history of asthma, heart failure, COPD presents with chart was of breath 1 month. History of Present Illness: Patient is 78-year-old female she has multiple comorbidities. She states she's had a month of shortness of breath. She was last seen [facility] where she was diagnosed with bacterial pneumonia she was given a course of antibiotics and steroids. Patient states that her symptoms have not really improved and she still continues to be short of breath. She uses 2 L of oxygen at home. States that shortness of breath is exertional there is a machine today was because it did not appear that she abraded with minimal amount of exertion. She does complain of some mild chest pain. She has multiple cardiac comorbidities with CHF and coronary artery disease patient status post multiple stents. Denies any fever, chills or night sweats. She reports rhinorrhea The ROS documented in this emergency department record has been reviewed and confirmed by me. Those systems with pertinent positive or negative responses have been documented in the HPI. All other systems are other negative and/or noncontributory. PHYSICAL EXAM: General Impression: Alert and oriented x3, not in acute distress HEENT: Normocephalic atraumatic, extra-ocular movements intact, pupils equal and reactive to light bilaterally, mucous membranes moist. Cardiovascular: Heart regular rate and rhythm, S1&S2 audible, no murmurs, rubs or gallops Chest: Bilateral lung crackles Abdomen: Bowel sounds present, abdomen soft, non-tender, non-distended, no organomegaly Musculoskeletal: Pulses present and equal in all extremities, no peripheral edema Motor: no focal deficits noted Neurological: CN II-XII grossly intact, no focal motor or sensory deficits noted Skin: Intact with no visualized rashes Psych: Normal affect and mood ED course: 78-year-old female chief complaint of shortness of breath. As upon arrival are within acceptable limits. Patient upon initial evaluation is not hypoxic and satting well on her usual home oxygen. Patient also had stable hemodynamics. She signed having any trouble breathing breathing or speaking. She is able to complete prolonged sentences and didn't appear winded. Laboratory evaluation obtained. CBC, coag panel was obtained found to be unremarkable. Metabolic panel is unremarkable. Urinalysis is negative. Chest x-ray shows no acute processes. Patient still complaining of mild shortness of breath despite looking very well. D-dimer was obtained with the level of 0.99. CT angios the chest was performed showing no findings of pulmonary embolus. CT angios completely clear of any abnormalities however there was mild chronic interstitial disease. Discussed with patient that there is no clear source of her symptoms likely secondary to COPD. Patient appears well. She wants to go home. She does live at home with family. She has multiple for oxygen tanks. She is urged that she should return to the emergency Department with any worsening symptoms. Patient is told that she has very brittle medical condition thank you 10 to progress rapidly and that she should return to the emergency Department with any worsening symptoms. Patient is understandable and agreeable to plan. Family members understandable and agreeable to plan. Patient given 10 mg of by mouth Decadron. To resume her normal breathing treatment patterns. At this point it is unclear what patient's symptoms are from however patient appears well and can manage this outpatient. She has an appointment with her biological science aide on Tuesday. EKG interpretation: Ventricular rate 68, sinus rhythm, [place] interval 114, care is 84, QTc 412. No [place] prolongation, no QTC prolongation, no ST or T-wave changes noted. EKG compared to 03/20/2018 showing no changes. Overall, this EKG is unremarkable - Related Data Home Medications Medication Instructions Recorded Confirmed Clopidogrel [Plavix] 75 mg PO HS 02/17/18 09/22/18 Furosemide [Lasix] 40 mg PO BID 02/17/18 09/22/18 Lisinopril [Zestril] 10 mg PO HS 02/17/18 09/22/18 Omeprazole 20 mg PO DAILY 02/17/18 09/22/18 Rosuvastatin Calcium [Crestor] 40 mg PO HS 02/17/18 09/22/18 amLODIPine [Norvasc] 5 mg PO HS 02/17/18 09/22/18 Budesonide [Pulmicort] 0.5 mg INHALATION RT-BID 02/23/18 09/22/18 Ipratropium-Albuterol Nebulize 3 ml INHALATION RT-QID PRN 02/23/18 09/22/18 [Duoneb 0.5 mg-3 mg/3 ml Soln] Albuterol Sulfate [Proair 2 puff PO RT-Q4H PRN 03/16/18 09/22/18 Respiclick] ALPRAZolam [Xanax] 0.5 mg PO BID PRN 03/20/18 09/22/18 Montelukast Sodium [Singulair] 10 mg PO HS 03/20/18 09/22/18 Nitroglycerin Sl Tabs [Nitrostat] 0.4 mg PO Q5M PRN 03/20/18 09/22/18 Metoprolol Tartrate [Lopressor] 12.5 mg PO DAILY 09/22/18 09/22/18 Previous Rx's Medication Instructions Recorded Benzonatate [Tessalon Perles] 100 mg PO TID #30 cap 03/25/18 Fluticasone Nasal [place] [Flonase 2 spray EA NOSTRIL DAILY #1 device 03/25/18 Nasal [place]] Melatonin 6 mg PO HS tablet 03/25/18 Allergies Allergy/AdvReac Type Severity Reaction Status Date / Time clavulanic acid Allergy Unknown Verified 09/22/18 20:49 diclofenac [From Voltaren] Allergy Unknown Verified 09/22/18 20:49 isosorbide [From Imdur] Allergy Unknown Verified 09/22/18 20:49 levofloxacin [From Levaquin] Allergy Swelling Verified 09/22/18 20:49 metformin Allergy Unknown Verified 09/22/18 20:49 NSAIDS (Non-Steroidal Allergy Unknown Verified 09/22/18 20:49 Anti-Inflamma Penicillins Allergy Unknown Verified 09/22/18 20:49 prednisone Allergy VERY HYPER Verified 09/22/18 20:49 FEELING, EXHAUSTED Quinolones Allergy Unknown Verified 09/22/18 20:49 tramadol [From Ultram] Allergy Unknown Verified 09/22/18 20:49 amoxicillin [From Augmentin] AdvReac Headache Verified 09/22/18 20:49 aspirin AdvReac Headache Verified 09/22/18 20:49 gabapentin AdvReac Headache Verified 09/22/18 20:49 meloxicam [From Mobic] AdvReac Headache Verified 09/22/18 20:49 nabumetone [From Relafen] AdvReac Headache Verified 09/22/18 20:49 nickel AdvReac Headache Verified 09/22/18 20:49 ranolazine [From Ranexa] AdvReac Headache Verified 09/22/18 20:49 Review of Systems ROS Statement: Those systems with pertinent positive or pertinent negative responses have been documented in the HPI. ROS Other: All systems not noted in ROS Statement are negative. Past Medical History Past Medical History: Cancer, Heart Failure, COPD, Diabetes Mellitus, GERD/Reflux, Hypertension, Osteoarthritis (OA), Sleep Apnea/CPAP/BIPAP Additional Past Medical History / Comment(s): CPAP WITH OXYGEN, SKIN CANCER , DIET CONTROLLED DIABETIC , cataracts, past fall fx lt arm. had a pne vaccine with in last 2 years not sure of date, parts data writer unable to verify date at time of admit. History of Any Multi-Drug Resistant Organisms: None Reported Past Surgical History: Appendectomy, Back Surgery, Heart Catheterization With Stent, Joint Replacement, Orthopedic Surgery Additional Past Surgical History / Comment(s): bilateral hip replacement, right knee replacement, two back surgeries, total 6 cardiac stents Past Anesthesia/Blood Transfusion Reactions: No Reported Reaction Date of Last Stent Placement:: 2010 Past Psychological History: Anxiety, Depression Smoking Status: Former smoker Past Alcohol Use History: Occasional Past Drug Use History: None Reported - Past Family History Mother Family Medical History: CVA/TIA, Diabetes Mellitus, Myocardial Infarction ([place]) Father Family Medical History: CVA/TIA, Myocardial Infarction ([place]) Sister(s) Family Medical History: Cancer Additional Family Medical History / Comment(s): 1 sister from lung cancer, 2 sisters had breast cancer Brother(s) Additional Family Medical History / Comment(s): 1 brother from lung cancer and had cardiac problems, another brother had heart problems and stroke Course Vital Signs 09/22/18 19:10 Temperature 98.1 F Pulse Rate 68 Respiratory 22 Rate Blood Pressure 148/55 O2 Sat by Pulse 96 Oximetry Medical Decision Making - Lab Data Result diagrams: 09/22/18 20:07 09/22/18 20:07 Lab Results 09/22/18 09/22/18 09/22/18 Range/Units 20:07 20:07 20:07 WBC 6.2 (3.8-10.6) k/uL RBC 4.83 (3.80-5.40) m/uL Hgb 14.1 (11.4-16.0) gm/dL Hct 43.6 (34.0-46.0) % MCV 90.4 (80.0-100.0) fL MCH 29.2 (25.0-35.0) pg MCHC 32.3 (31.0-37.0) g/dL RDW 14.5 (11.5-15.5) % Plt Count 334 (150-450) k/uL Neutrophils % 69 % Lymphocytes % 20 % Monocytes % 8 % Eosinophils % 0 % Basophils % 0 % Neutrophils # 4.3 (1.3-7.7) k/uL Lymphocytes # 1.2 (1.0-4.8) k/uL Monocytes # 0.5 (0-1.0) k/uL Eosinophils # 0.0 (0-0.7) k/uL Basophils # 0.0 (0-0.2) k/uL Hypochromasia Slight PT (9.0-12.0) sec INR (<1.2) APTT (22.0-30.0) sec D-Dimer (<0.60) mg/L FEU Sodium 143 (137-145) mmol/L Potassium 4.3 (3.5-5.1) mmol/L Chloride 106 (98-107) mmol/L Carbon Dioxide 29 (22-30) mmol/L Anion Gap 8 mmol/L BUN 12 (7-17) mg/dL Creatinine 0.57 (0.52-1.04) mg/dL Est GFR (CKD-EPI)AfAm >90 (>60 ml/min/1.73 sqM) Est GFR (CKD-EPI)NonAf >90 (>60 ml/min/1.73 sqM) Glucose 92 (74-99) mg/dL Calcium 9.6 (8.4-10.2) mg/dL Magnesium 2.0 (1.6-2.3) mg/dL Total Bilirubin 0.4 (0.2-1.3) mg/dL AST 20 (14-36) U/L ALT 18 (9-52) U/L Alkaline Phosphatase 87 (38-126) U/L Creatine Kinase 81 (30-135) U/L Troponin I (0.000-0.034) ng/mL NT-Pro-B Natriuret Pep 143 pg/mL Total Protein 6.8 (6.3-8.2) g/dL Albumin 4.3 (3.5-5.0) g/dL Urine Color Urine Appearance (Clear) Urine pH (5.0-8.0) Ur Specific [place] (1.001-1.035) Urine Protein (Negative) Urine Glucose (UA) (Negative) Urine Ketones (Negative) Urine Blood (Negative) Urine Nitrite (Negative) Urine Bilirubin (Negative) Urine Urobilinogen (<2.0) mg/dL Ur Leukocyte Esterase (Negative) 09/22/18 09/22/18 09/22/18 Range/Units 20:07 20:07 20:07 WBC (3.8-10.6) k/uL RBC (3.80-5.40) m/uL Hgb (11.4-16.0) gm/dL Hct (34.0-46.0) % MCV (80.0-100.0) fL MCH (25.0-35.0) pg MCHC (31.0-37.0) g/dL RDW (11.5-15.5) % Plt Count (150-450) k/uL Neutrophils % % Lymphocytes % % Monocytes % % Eosinophils % % Basophils % % Neutrophils # (1.3-7.7) k/uL Lymphocytes # (1.0-4.8) k/uL Monocytes # (0-1.0) k/uL Eosinophils # (0-0.7) k/uL Basophils # (0-0.2) k/uL Hypochromasia PT 9.5 (9.0-12.0) sec INR 0.9 (<1.2) APTT 24.2 (22.0-30.0) sec D-Dimer (<0.60) mg/L FEU Sodium (137-145) mmol/L Potassium (3.5-5.1) mmol/L Chloride (98-107) mmol/L Carbon Dioxide (22-30) mmol/L Anion Gap mmol/L BUN (7-17) mg/dL Creatinine (0.52-1.04) mg/dL Est GFR (CKD-EPI)AfAm (>60 ml/min/1.73 sqM) Est GFR (CKD-EPI)NonAf (>60 ml/min/1.73 sqM) Glucose (74-99) mg/dL Calcium (8.4-10.2) mg/dL Magnesium (1.6-2.3) mg/dL Total Bilirubin (0.2-1.3) mg/dL AST (14-36) U/L ALT (9-52) U/L Alkaline Phosphatase (38-126) U/L Creatine Kinase (30-135) U/L Troponin I <0.012 (0.000-0.034) ng/mL NT-Pro-B Natriuret Pep pg/mL Total Protein (6.3-8.2) g/dL Albumin (3.5-5.0) g/dL Urine Color Yellow Urine Appearance Clear (Clear) Urine pH 6.5 (5.0-8.0) Ur Specific [place] 1.015 (1.001-1.035) Urine Protein Negative (Negative) Urine Glucose (UA) Negative (Negative) Urine Ketones Negative (Negative) Urine Blood Negative (Negative) Urine Nitrite Negative (Negative) Urine Bilirubin Negative (Negative) Urine Urobilinogen 2.0 (<2.0) mg/dL Ur Leukocyte Esterase Negative (Negative) 09/22/18 Range/Units 20:07 WBC (3.8-10.6) k/uL RBC (3.80-5.40) m/uL Hgb (11.4-16.0) gm/dL Hct (34.0-46.0) % MCV (80.0-100.0) fL MCH (25.0-35.0) pg MCHC (31.0-37.0) g/dL RDW (11.5-15.5) % Plt Count (150-450) k/uL Neutrophils % % Lymphocytes % % Monocytes % % Eosinophils % % Basophils % % Neutrophils # (1.3-7.7) k/uL Lymphocytes # (1.0-4.8) k/uL Monocytes # (0-1.0) k/uL Eosinophils # (0-0.7) k/uL Basophils # (0-0.2) k/uL Hypochromasia PT (9.0-12.0) sec INR (<1.2) APTT (22.0-30.0) sec D-Dimer 0.99 H (<0.60) mg/L FEU Sodium (137-145) mmol/L Potassium (3.5-5.1) mmol/L Chloride (98-107) mmol/L Carbon Dioxide (22-30) mmol/L Anion Gap mmol/L BUN (7-17) mg/dL Creatinine (0.52-1.04) mg/dL Est GFR (CKD-EPI)AfAm (>60 ml/min/1.73 sqM) Est GFR (CKD-EPI)NonAf (>60 ml/min/1.73 sqM) Glucose (74-99) mg/dL Calcium (8.4-10.2) mg/dL Magnesium (1.6-2.3) mg/dL Total Bilirubin (0.2-1.3) mg/dL AST (14-36) U/L ALT (9-52) U/L Alkaline Phosphatase (38-126) U/L Creatine Kinase (30-135) U/L Troponin I (0.000-0.034) ng/mL NT-Pro-B Natriuret Pep pg/mL Total Protein (6.3-8.2) g/dL Albumin (3.5-5.0) g/dL Urine Color Urine Appearance (Clear) Urine pH (5.0-8.0) Ur Specific [place] (1.001-1.035) Urine Protein (Negative) Urine Glucose (UA) (Negative) Urine Ketones (Negative) Urine Blood (Negative) Urine Nitrite (Negative) Urine Bilirubin (Negative) Urine Urobilinogen (<2.0) mg/dL Ur Leukocyte Esterase (Negative) Disposition Clinical Impression: Dyspnea Disposition: HOME SELF-CARE Condition: Good Instructions (If sedation given, give patient instructions): Dyspnea (ED) Is patient prescribed a controlled substance at d/c from ED?: No Referrals: Katlin Ruffin MD [Primary Care Provider] - 1-2 days Kevin Strong MD [STAFF PHYSICIAN] - 1-2 days Time of Disposition: 00:10
[2018-09-22 20:51] LABS: Appearance,Urine Clear (Clear); Bilirubin,Urine Negative (Negative); Blood,Urine Negative (Negative); Color,Urine Yellow; Glucose,Urine (UA) Negative (Negative); Ketones,Urine Negative (Negative); Leukocyte Esterase,Urine Negative (Negative); Nitrite,Urine Negative (Negative); PH, Urine 6.5 (5.0-8.0); Protein,Urine Negative (Negative); Specific Gravity,Urine 1.015 (1.001-1.035)
[2018-09-22 20:56] LABS: Basophils % (A) 0 %; Eosinophils % (A) 0 %; HCT 43.6 % (34.0-46.0); HGB 14.1 gm/dL (11.4-16.0); Hypochromasia Slight; Lymphocytes # (A) 1.2 k/uL (1.0-4.8); Lymphocytes % (A) 20 %; MCH 29.2 pg (25.0-35.0); MCHC 32.3 g/dL (31.0-37.0); MCV 90.4 fL (80.0-100.0); Mean Platelet Volume 7.6; Monocytes # (A) 0.5 k/uL (0-1.0); Monocytes % (A) 8 %; Neutrophils # (A) 4.3 k/uL (1.3-7.7); Neutrophils % (A) 69 %; Platelet Count 334 k/uL (150-450); RBC 4.83 m/uL (3.80-5.40); RDW 14.5 % (11.5-15.5); WBC 6.2 k/uL (3.8-10.6)
[2018-09-22 21:01] LABS: INR 0.9 (<1.2); Partial Thromboplastin Time 24.2 sec (22.0-30.0); Prothrombin Time 9.5 sec (9.0-12.0)
[2018-09-22 21:02] LABS: ALT 18 U/L (9-52); AST 20 U/L (14-36); Albumin 4.3 g/dL (3.5-5.0); Alkaline Phosphatase 87 U/L (38-126); Anion Gap 8 mmol/L; Blood Urea Nitrogen 12 mg/dL (7-17); Calcium 9.6 mg/dL (8.4-10.2); Carbon Dioxide 29 mmol/L (22-30); Chloride 106 mmol/L (98-107); Creatine Kinase 81 U/L (30-135); Glucose 92 mg/dL (74-99); Potassium 4.3 mmol/L (3.5-5.1); Sodium 143 mmol/L (137-145); Total Bilirubin 0.4 mg/dL (0.2-1.3); Total Protein 6.8 g/dL (6.3-8.2)
--- NOTE | 2018-09-22 21:02 | XR ---
EXAMINATION TYPE: XR chest 2V DATE OF EXAM: 09/22/2018 COMPARISON: 03/20/2018 HISTORY: Difficulty breathing TECHNIQUE: Frontal and lateral views of the chest are obtained. FINDINGS: There is some mild patchy linear density in the mid and lower lung smith. Heart size is n ormal. There is no heart failure. There is moderate spurring at the AC joint on the right side. There is no pleural effusion. Thoracic spine is intact. IMPRESSION: Mild scarring and subsegmental atelectasis in the lower lung smith not significantly di fferent than old exam. Normal heart.
--- NOTE | 2018-09-22 23:58 | CT ---
EXAM: CT Angiography Chest With Intravenous Contrast CLINICAL HISTORY: Pain TECHNIQUE: Axial computed tomographic angiography images of the chest with intravenous contrast using pulmonary embolism protocol. CTDI is 11.9 mGy and DLP is 37.8 mGy-cm. This CT exam was performed using one or more of the following dose reduction techniques: automated exposure control, adjustment of the mA and/or kV according to patient size, and/or use of iterative reconstruction technique. MIP reconstructed images were created and reviewed. Coronal and sagittal reformatted images were created and reviewed. COMPARISON: No relevant prior studies available. FINDINGS: Pulmonary arteries: Unremarkable. No pulmonary embolism. Aorta: No acute findings. No thoracic aortic aneurysm. Lungs: Unremarkable. No mass. No consolidation. Mild chronic interstitial changes with some mild bronchial thickening Pleural space: Unremarkable. No significant effusion. No pneumothorax. Heart: Unremarkable. No cardiomegaly. No significant pericardial effusion. No evidence of RV dysfunction. Bones/joints: No acute fracture. No dislocation. Soft tissues: Unremarkable. Lymph nodes: Unremarkable. No enlarged lymph nodes. IMPRESSION: Normal chest CTA. No pulmonary embolism. Mild chronic interstitial changes.
[2018-09-23] MEDS ORDERED: DEXAMETHASONE 4 MG TAB PO STA (00:08)
[2018-09-23 00:20] VITALS: BP 137/58; PULSE 73; RESP 19
[2018-09-23 00:21] VITALS: TEMP 98.3
== END 2018-09-23 00:28 | disposition home or self-care (01) ==
LOC: EC 19:08
DX: R06.02 Shortness of breath (principal); R07.9 Chest pain, unspecified; I11.0 Hypertensive heart disease with heart failure; I50.9 Heart failure, unspecified; I25.10 Atherosclerotic heart disease of native coronary artery without angina pectoris; J44.9 Chronic obstructive pulmonary disease, unspecified; E11.9 Type 2 diabetes mellitus without complications; K21.9 Gastro-esophageal reflux disease without esophagitis; M19.90 Unspecified osteoarthritis, unspecified site; G47.30 Sleep apnea, unspecified; Z87.891 Personal history of nicotine dependence; Z88.0 Allergy status to penicillin; Z88.1 Allergy status to other antibiotic agents; Z88.5 Allergy status to narcotic agent; Z88.6 Allergy status to analgesic agent; Z88.8 Allergy status to other drugs, medicaments and biological substances; Z91.048 Other nonmedicinal substance allergy status; Z79.02 Long term (current) use of antithrombotics/antiplatelets; Z79.51 Long term (current) use of inhaled steroids; Z79.899 Other long term (current) drug therapy; Z85.828 Personal history of other malignant neoplasm of skin; Z87.01 Personal history of pneumonia (recurrent); Z96.643 Presence of artificial hip joint, bilateral; Z96.651 Presence of right artificial knee joint; Z95.5 Presence of coronary angioplasty implant and graft; Z99.81 Dependence on supplemental oxygen; Z99.89 Dependence on other enabling machines and devices; Z80.1 Family history of malignant neoplasm of trachea, bronchus and lung; Z82.49 Family history of ischemic heart disease and other diseases of the circulatory system
CPT/HCPCS: 36415; 93005; 85379; 83880; 80053; 82550; 83735; 84484; 85025; 85610; 85730; 81003; 71046; 71275; 99285; J8540; Q9967

== ENCOUNTER 2018-10-26 22:11 | Emergency (ER) | payer MEDICARE ==
--- NOTE | 2018-10-26 22:59 | ED ---
Chest Pain HPI - General Chief Complaint: Chest Pain Stated Complaint: Chest Pain Time Seen by Provider: 10/26/18 22:26 Source: patient, EMS Mode of arrival: EMS Limitations: no limitations - History of Present Illness Initial Comments: This patient is a 78-year-old woman with history of angina who complains of having left-sided chest pain that she states is identical to previous angina. She states that it came on earlier this afternoon while she was watching television. When the pain did not resolve she called EMS. The patient states that she took 3 nitroglycerin and the pain was relieved but did recur in the ambulance ride on the way here. She states that she was given another nitroglycerin and the pain is now gone again. Onset/Timin -: hour(s) Onset: during rest (While watching television) Pain Location: left chest Pain Radiation: none Severity: moderate Quality: heaviness Consistency: constant, now resolved Improves With: nothing Worsens With: nothing Treatments Prior to Arrival: nitroglycerin - Related Data Home Medications Medication Instructions Recorded Confirmed Clopidogrel [Plavix] 75 mg PO HS 02/17/18 10/26/18 Furosemide [Lasix] 40 mg PO BID 02/17/18 10/26/18 Lisinopril [Zestril] 10 mg PO HS 02/17/18 10/26/18 Omeprazole 20 mg PO DAILY 02/17/18 10/26/18 Rosuvastatin Calcium [Crestor] 40 mg PO HS 02/17/18 10/26/18 amLODIPine [Norvasc] 5 mg PO HS 02/17/18 10/26/18 Budesonide [Pulmicort] 0.5 mg INHALATION RT-BID 02/23/18 10/26/18 Ipratropium-Albuterol Nebulize 3 ml INHALATION RT-QID PRN 02/23/18 10/26/18 [Duoneb 0.5 mg-3 mg/3 ml Soln] Albuterol Sulfate [Proair 2 puff PO RT-Q4H PRN 03/16/18 10/26/18 Respiclick] ALPRAZolam [Xanax] 0.5 mg PO BID PRN 03/20/18 10/26/18 Montelukast Sodium [Singulair] 10 mg PO HS 03/20/18 10/26/18 Nitroglycerin Sl Tabs [Nitrostat] 0.4 mg PO Q5M PRN 03/20/18 10/26/18 Metoprolol Tartrate [Lopressor] 12.5 mg PO DAILY 09/22/18 10/26/18 Previous Rx's Medication Instructions Recorded Melatonin 6 mg PO HS tablet 03/25/18 Allergies Allergy/AdvReac Type Severity Reaction Status Date / Time clavulanic acid Allergy Unknown Verified 10/26/18 22:23 diclofenac [From Voltaren] Allergy Unknown Verified 10/26/18 22:23 isosorbide [From Imdur] Allergy Unknown Verified 10/26/18 22:23 levofloxacin [From Levaquin] Allergy Swelling Verified 10/26/18 22:23 metformin Allergy Unknown Verified 10/26/18 22:23 NSAIDS (Non-Steroidal Allergy Unknown Verified 10/26/18 22:23 Anti-Inflamma Penicillins Allergy Unknown Verified 10/26/18 22:23 prednisone Allergy VERY HYPER Verified 10/26/18 22:23 FEELING, EXHAUSTED Quinolones Allergy Unknown Verified 10/26/18 22:23 tramadol [From Ultram] Allergy Unknown Verified 10/26/18 22:23 amoxicillin [From Augmentin] AdvReac Headache Verified 10/26/18 22:23 aspirin AdvReac Headache Verified 10/26/18 22:23 gabapentin AdvReac Headache Verified 10/26/18 22:23 meloxicam [From Mobic] AdvReac Headache Verified 10/26/18 22:23 nabumetone [From Relafen] AdvReac Headache Verified 10/26/18 22:23 nickel AdvReac Headache Verified 10/26/18 22:23 ranolazine [From Ranexa] AdvReac Headache Verified 10/26/18 22:23 Review of Systems ROS Statement: Those systems with pertinent positive or pertinent negative responses have been documented in the HPI. ROS Other: All systems not noted in ROS Statement are negative. Constitutional: Denies: fever, chills Respiratory: Denies: cough, dyspnea Cardiovascular: Reports: as per HPI, chest pain. Denies: palpitations, orthopnea, edema, syncope Gastrointestinal: Denies: abdominal pain, nausea, vomiting Genitourinary: Denies: dysuria, hematuria Musculoskeletal: Denies: back pain Skin: Denies: rash Neurological: Denies: headache, weakness, numbness EKG Findings - EKG Comments: EKG Findings:: The underlying rhythm appears to be sinus rhythm with occasional PVCs, the rate is 62 bpm. - EKG Results: EKG: interpreted by ERMD, sinus rhythm, normal axis, normal QRS - Blocks, Chicken, Hypertrophy, ST Abn: Repolarization changes or abnormalities: nonspecific abnormality, ST segment, and/or T wave Past Medical History Past Medical History: Cancer, Heart Failure, COPD, Diabetes Mellitus, GERD/Reflux, Hypertension, Osteoarthritis (OA), Sleep Apnea/CPAP/BIPAP Additional Past Medical History / Comment(s): CPAP WITH OXYGEN, SKIN CANCER , DIET CONTROLLED DIABETIC , cataracts, past fall fx lt arm. had a pne vaccine with in last 2 years not sure of date, principal technical writer unable to verify date at time of admit. History of Any Multi-Drug Resistant Organisms: None Reported Past Surgical History: Appendectomy, Back Surgery, Heart Catheterization With Stent, Joint Replacement, Orthopedic Surgery Additional Past Surgical History / Comment(s): bilateral hip replacement, right knee replacement, two back surgeries, total 6 cardiac stents Past Anesthesia/Blood Transfusion Reactions: No Reported Reaction Date of Last Stent Placement:: 2010 Past Psychological History: Anxiety, Depression Smoking Status: Former smoker Past Alcohol Use History: Occasional Past Drug Use History: None Reported - Past Family History Mother Family Medical History: CVA/TIA, Diabetes Mellitus, Myocardial Infarction ([place]) Father Family Medical History: CVA/TIA, Myocardial Infarction ([place]) Sister(s) Family Medical History: Cancer Additional Family Medical History / Comment(s): 1 sister from lung cancer, 2 sisters had breast cancer Brother(s) Additional Family Medical History / Comment(s): 1 brother from lung cancer and had cardiac problems, another brother had heart problems and stroke General Exam Limitations: no limitations General appearance: alert, in no apparent distress Head exam: Present: atraumatic, normocephalic Eye exam: Present: normal appearance. Absent: scleral icterus, conjunctival injection ENT exam: Present: normal oropharynx Respiratory exam: Present: rales (Bilateral bases), decreased breath sounds. Absent: wheezes, rhonchi, stridor, accessory muscle use Cardiovascular Exam: Present: regular rate, bradycardia (Rate is approximately 56 at my exam), systolic murmur (Grade 1/6 systolic ejection murmur). Absent: diastolic murmur, rubs, gallop GI/Abdominal exam: Present: soft. Absent: distended, tenderness, guarding, rebound, rigid, mass Extremities exam: Present: normal inspection, normal capillary refill. Absent: pedal edema, calf tenderness Back exam: Present: normal inspection. Absent: CVA tenderness (R), CVA tenderness (L) Neurological exam: Present: alert Skin exam: Present: warm, dry, intact, normal color. Absent: rash Course Vital Signs 10/26/18 22:14 Temperature 98.5 F Pulse Rate 35 L Respiratory 24 Rate Blood Pressure 197/68 O2 Sat by Pulse 97 Oximetry Chest Pain MDM - MDM Patient is 78-year-old woman with chest pain. Note that her d-dimer is elevated though using age adjusted criteria this is within the normal age adjusted range. In addition, the patient has had higher level than this previously and had a negative CT angiography at that point. Patient states that her symptoms have not recurred since being here. When I review the lab results with her, she states that she is feeling well and would like to go home. She understands possibility of this pain being cardiac in origin and agrees to return should she have any symptoms recur. Patient's family is supportive of her decision. Disposition Clinical Impression: Angina pectoris Disposition: HOME SELF-CARE Condition: Fair Instructions (If sedation given, give patient instructions): Angina (ED) Is patient prescribed a controlled substance at d/c from ED?: No Referrals: Aristeo Nix MD [Primary Care Provider] - 1-2 days Jackie Strong MD [STAFF PHYSICIAN] - 1-2 days
[2018-10-26 23:09] LABS: Basophils % (A) 0 %; Eosinophils % (A) 0 %; HCT 43.5 % (34.0-46.0); HGB 13.3 gm/dL (11.4-16.0); Lymphocytes # (A) 1.5 k/uL (1.0-4.8); Lymphocytes % (A) 25 %; MCH 27.5 pg (25.0-35.0); MCHC 30.6 g/dL (31.0-37.0); MCV 89.9 fL (80.0-100.0); Mean Platelet Volume 7.2; Monocytes # (A) 0.6 k/uL (0-1.0); Monocytes % (A) 10 %; Neutrophils # (A) 3.7 k/uL (1.3-7.7); Neutrophils % (A) 61 %; Platelet Count 352 k/uL (150-450); RBC 4.84 m/uL (3.80-5.40)
[2018-10-26 23:19] LABS: ALT 14 U/L (9-52); AST 20 U/L (14-36); Albumin 3.7 g/dL (3.5-5.0); Alkaline Phosphatase 77 U/L (38-126); Amylase 44 U/L (30-110); Anion Gap 7 mmol/L; Blood Urea Nitrogen 12 mg/dL (7-17); Calcium 9.6 mg/dL (8.4-10.2); Carbon Dioxide 25 mmol/L (22-30); Chloride 108 mmol/L (98-107); Glucose 98 mg/dL (74-99); Lipase 86 U/L (23-300); Potassium 4.1 mmol/L (3.5-5.1); Sodium 140 mmol/L (137-145); Total Bilirubin 0.4 mg/dL (0.2-1.3); Total Protein 5.9 g/dL (6.3-8.2)
[2018-10-26 23:26] LABS: INR 0.9 (<1.2); Partial Thromboplastin Time 25.9 sec (22.0-30.0); Prothrombin Time 10.2 sec (9.0-12.0)
[2018-10-26 23:42] LABS: D-Dimer 0.75 mg/L FEU (<0.60)
[2018-10-27 00:22] VITALS: BP 175/82; RESP 22; TEMP 98
[2018-10-27 00:24] VITALS: PULSE 62
--- NOTE | 2018-10-27 06:19 | XR ---
EXAMINATION TYPE: XR chest 1V portable DATE OF EXAM: 10/26/2018 COMPARISON: Prior chest x-ray and CTA chest September 22, 2018. HISTORY: Chest pain. TECHNIQUE: Single frontal view of the chest is obtained. FINDINGS: There is chronic parenchymal change without suspicious new focal air space opacity, pleura l effusion, or pneumothorax seen. The cardiac silhouette size is upper limits of normal with atheros clerotic aorta. Underlying scoliosis is redemonstrated. IMPRESSION: Chronic changes without acute pulmonary process.
== END 2018-10-27 00:40 | disposition home or self-care (01) ==
LOC: EC 22:11
DX: I20.9 Angina pectoris, unspecified (principal); I11.0 Hypertensive heart disease with heart failure; I50.9 Heart failure, unspecified; E11.9 Type 2 diabetes mellitus without complications; K21.9 Gastro-esophageal reflux disease without esophagitis; M19.90 Unspecified osteoarthritis, unspecified site; J44.9 Chronic obstructive pulmonary disease, unspecified; G47.30 Sleep apnea, unspecified; Z99.89 Dependence on other enabling machines and devices; Z85.828 Personal history of other malignant neoplasm of skin; F32.9 Major depressive disorder, single episode, unspecified; F41.9 Anxiety disorder, unspecified; Z87.891 Personal history of nicotine dependence; Z79.01 Long term (current) use of anticoagulants; Z79.51 Long term (current) use of inhaled steroids; Z79.899 Other long term (current) drug therapy; Z88.6 Allergy status to analgesic agent; Z88.0 Allergy status to penicillin; Z88.8 Allergy status to other drugs, medicaments and biological substances; Z88.1 Allergy status to other antibiotic agents; Z88.5 Allergy status to narcotic agent; Z91.048 Other nonmedicinal substance allergy status; Z95.5 Presence of coronary angioplasty implant and graft; Z96.643 Presence of artificial hip joint, bilateral; Z96.651 Presence of right artificial knee joint
CPT/HCPCS: 36415; 71045; 80053; 82150; 83690; 83735; 84484; 85025; 85379; 85610; 85730; 93005; 99285

== ENCOUNTER 2018-11-30 01:29 | Observation (INO) | payer MEDICARE ==
[2018-11-30] MEDS ORDERED: ASPIRIN 81 MG PO STA (01:52)
[2018-11-30] MEDS ORDERED: NITROGLYCERIN SL TABS 0.4 MG TAB SUBLINGUAL STA (01:52)
[2018-11-30 02:02] LABS: Basophils % (A) 0 %; Eosinophils # (A) 0.1 k/uL (0-0.7); Eosinophils % (A) 1 %; HCT 46.8 % (34.0-46.0); HGB 15.1 gm/dL (11.4-16.0); Lymphocytes # (A) 1.8 k/uL (1.0-4.8); Lymphocytes % (A) 19 %; MCH 28.2 pg (25.0-35.0); MCHC 32.3 g/dL (31.0-37.0); MCV 87.2 fL (80.0-100.0); Monocytes # (A) 0.5 k/uL (0-1.0); Monocytes % (A) 6 %; Neutrophils % (A) 73 %; Platelet Count 249 k/uL (150-450); RBC 5.37 m/uL (3.80-5.40); RDW 14.2 % (11.5-15.5); WBC 9.6 k/uL (3.8-10.6)
[2018-11-30 02:13] LABS: Albumin 4.5 g/dL (3.5-5.0); Calcium 10.3 mg/dL (8.4-10.2); Potassium 3.8 mmol/L (3.5-5.1); Total Bilirubin 0.6 mg/dL (0.2-1.3); Total Protein 7.1 g/dL (6.3-8.2)
[2018-11-30 02:22] LABS: INR 0.8 (<1.2); Partial Thromboplastin Time 24.3 sec (22.0-30.0); Prothrombin Time 9.4 sec (9.0-12.0)
[2018-11-30 02:30] LABS: D-Dimer 0.78 mg/L FEU (<0.60)
--- NOTE | 2018-11-30 03:08 | XR ---
EXAM: XR Chest, 1 View CLINICAL HISTORY: Chest pain. TECHNIQUE: Frontal view of the chest. COMPARISON: CTA dated 09/22/2018. FINDINGS: Lungs: Mild basilar atelectasis. No focal consolidation. No evidence of pulmonary edema. Pleural space: No pleural effusion. No pneumothorax. Heart: Upper normal cardiac silhouette size. Mediastinum: Unremarkable. No mediastinal widening. Bones/joints: Osseous structures appear intact. IMPRESSION: No radiographic evidence of acute cardiopulmonary process.
--- NOTE | 2018-11-30 04:38 | ED ---
Chest Pain HPI - General Chief Complaint: Chest Pain Stated Complaint: chest pain Time Seen by Provider: 11/30/18 01:45 Source: patient Mode of arrival: wheelchair Limitations: no limitations - History of Present Illness MD Complaint: chest pain Onset/Timin -: days(s) Onset: during rest Pain Location: left chest Pain Radiation: back Severity: moderate Quality: aching Consistency: constant Improves With: nitroglycerin Worsens With: nothing - Related Data Home Medications Medication Instructions Recorded Confirmed Clopidogrel [Plavix] 75 mg PO HS 02/17/18 11/30/18 Furosemide [Lasix] 40 mg PO BID 02/17/18 11/30/18 Lisinopril [Zestril] 10 mg PO HS 02/17/18 11/30/18 Omeprazole 20 mg PO DAILY 02/17/18 11/30/18 Rosuvastatin Calcium [Crestor] 40 mg PO HS 02/17/18 11/30/18 amLODIPine [Norvasc] 5 mg PO HS 02/17/18 11/30/18 Budesonide [Pulmicort] 0.5 mg INHALATION RT-BID 02/23/18 11/30/18 Ipratropium-Albuterol Nebulize 3 ml INHALATION RT-QID PRN 02/23/18 11/30/18 [Duoneb 0.5 mg-3 mg/3 ml Soln] Albuterol Sulfate [Proair 2 puff PO RT-Q4H PRN 03/16/18 11/30/18 Respiclick] ALPRAZolam [Xanax] 0.5 mg PO BID PRN 03/20/18 11/30/18 Montelukast Sodium [Singulair] 10 mg PO HS 03/20/18 11/30/18 Nitroglycerin Sl Tabs [Nitrostat] 0.4 mg PO Q5M PRN 03/20/18 11/30/18 Metoprolol Tartrate [Lopressor] 12.5 mg PO DAILY 09/22/18 11/30/18 Previous Rx's Medication Instructions Recorded Melatonin 6 mg PO HS tablet 03/25/18 Allergies Allergy/AdvReac Type Severity Reaction Status Date / Time clavulanic acid Allergy Unknown Verified 10/26/18 22:23 diclofenac [From Voltaren] Allergy Unknown Verified 10/26/18 22:23 isosorbide [From Imdur] Allergy Unknown Verified 10/26/18 22:23 levofloxacin [From Levaquin] Allergy Swelling Verified 10/26/18 22:23 metformin Allergy Unknown Verified 10/26/18 22:23 NSAIDS (Non-Steroidal Allergy Unknown Verified 10/26/18 22:23 Anti-Inflamma Penicillins Allergy Unknown Verified 10/26/18 22:23 prednisone Allergy VERY HYPER Verified 10/26/18 22:23 FEELING, EXHAUSTED Quinolones Allergy Unknown Verified 10/26/18 22:23 tramadol [From Ultram] Allergy Unknown Verified 10/26/18 22:23 amoxicillin [From Augmentin] AdvReac Headache Verified 10/26/18 22:23 aspirin AdvReac Headache Verified 10/26/18 22:23 gabapentin AdvReac Headache Verified 10/26/18 22:23 meloxicam [From Mobic] AdvReac Headache Verified 10/26/18 22:23 nabumetone [From Relafen] AdvReac Headache Verified 10/26/18 22:23 nickel AdvReac Headache Verified 10/26/18 22:23 ranolazine [From Ranexa] AdvReac Headache Verified 10/26/18 22:23 Review of Systems ROS Statement: Those systems with pertinent positive or pertinent negative responses have been documented in the HPI. ROS Other: All systems not noted in ROS Statement are negative. Constitutional: Denies: fever, chills Respiratory: Denies: cough, dyspnea Cardiovascular: Reports: chest pain. Denies: palpitations, orthopnea, edema, syncope Gastrointestinal: Denies: abdominal pain, vomiting, diarrhea Genitourinary: Denies: dysuria Musculoskeletal: Denies: back pain Skin: Denies: rash Neurological: Denies: headache, weakness, numbness EKG Findings - EKG Results: EKG: interpreted by ERMD, sinus rhythm (Rate 72 bpm), normal axis, normal QRS, normal ST/T - Blocks, Neligh, Hypertrophy, ST Abn: Repolarization changes or abnormalities: nonspecific abnormality, ST segment, and/or T wave Past Medical History Past Medical History: Cancer, Heart Failure, COPD, Diabetes Mellitus, GERD/Reflux, Hypertension, Osteoarthritis (OA), Sleep Apnea/CPAP/BIPAP Additional Past Medical History / Comment(s): CPAP WITH OXYGEN, SKIN CANCER , DIET CONTROLLED DIABETIC , cataracts, past fall fx lt arm. had a pne vaccine with in last 2 years not sure of date, chief underwriter unable to verify date at time of admit. History of Any Multi-Drug Resistant Organisms: None Reported Past Surgical History: Appendectomy, Back Surgery, Heart Catheterization With Stent, Joint Replacement, Orthopedic Surgery Additional Past Surgical History / Comment(s): bilateral hip replacement, right knee replacement, two back surgeries, total 6 cardiac stents Past Anesthesia/Blood Transfusion Reactions: No Reported Reaction Date of Last Stent Placement:: 2010 Past Psychological History: Anxiety, Depression Smoking Status: Former smoker Past Alcohol Use History: Occasional Past Drug Use History: None Reported - Past Family History Mother Family Medical History: CVA/TIA, Diabetes Mellitus, Myocardial Infarction ([place]) Father Family Medical History: CVA/TIA, Myocardial Infarction ([place]) Sister(s) Family Medical History: Cancer Additional Family Medical History / Comment(s): 1 sister from lung cancer, 2 sisters had breast cancer Brother(s) Additional Family Medical History / Comment(s): 1 brother from lung cancer and had cardiac problems, another brother had heart problems and stroke General Exam Limitations: no limitations General appearance: alert, in no apparent distress Head exam: Present: atraumatic, normocephalic Eye exam: Present: normal appearance. Absent: scleral icterus, conjunctival injection ENT exam: Present: normal oropharynx Neck exam: Present: normal inspection Respiratory exam: Present: normal lung sounds bilaterally, chest wall tenderness. Absent: respiratory distress, wheezes, rales, rhonchi, stridor, accessory muscle use, decreased breath sounds Cardiovascular Exam: Present: regular rate, normal rhythm, normal heart sounds. Absent: systolic murmur, diastolic murmur, rubs, gallop GI/Abdominal exam: Present: soft. Absent: distended, tenderness, guarding, rebound, rigid, mass Extremities exam: Present: normal inspection, normal capillary refill. Absent: pedal edema, calf tenderness Back exam: Present: normal inspection. Absent: CVA tenderness (R), CVA tenderness (L) Neurological exam: Present: alert Skin exam: Present: warm, dry, intact, normal color. Absent: rash Course Vital Signs 11/30/18 11/30/18 11/30/18 01:31 02:36 03:00 Temperature 98.2 F Pulse Rate 73 76 60 Respiratory 20 16 18 Rate Blood Pressure 116/67 118/74 111/63 O2 Sat by Pulse 94 L 98 96 Oximetry 11/30/18 04:00 Temperature Pulse Rate 60 Respiratory 18 Rate Blood Pressure 111/63 O2 Sat by Pulse 98 Oximetry Chest Pain MDM - MDM Patient 78-year-old woman presenting with 2 days of chest pain. Patient did have some relief with nitroglycerin. And she states that she is now symptom- free. Patient does have slight elevation of d-dimer but is within the limits by the age adjusted criteria. In addition patient has previously had this level and negative CT scans. Disposition Clinical Impression: Chest pain Disposition: ADMITTED IP TO THIS HOSP Condition: Fair Is patient prescribed a controlled substance at d/c from ED?: No
[2018-11-30] MEDS ORDERED: MORPHINE SULFATE 4 MG/ML SYRINGE IV STA (05:02)
[2018-11-30 06:00] VITALS: BP 108/62; RESP 16; TEMP 98
[2018-11-30] MEDS ORDERED: NITROGLYCERIN OINT 1 INCH/GM PACKET TOPICAL SCH (06:00)
[2018-11-30 06:36] VITALS: BMI 26.6
[2018-11-30 06:57] LABS: Glucose,Whole Blood 100 mg/dL (75-99)
[2018-11-30] MEDS: IPRATROPIUM-ALBUTEROL 3 ML NEB INHALATION PRN ×2 (07:04→10:24)
[2018-11-30 07:09] VITALS: PULSE 60
[2018-11-30] MEDS ORDERED: BUDESONIDE 0.5 MG/2 ML NEBU INHALATION SCH (08:00)
[2018-11-30] MEDS ORDERED: HEPARIN SODIUM,PORCINE 5,000 UNIT/ML 1 ML VIAL SQ SCH (09:00)
--- NOTE | 2018-11-30 09:24 | P.CRDCN ---
History of Present Illness Consult date: 11/30/18 History of present illness: This is a 78-year-old female with history of ischemic heart disease status post stent placement of the circumflex artery and also right coronary artery done in [place]. See had a cardiac catheterization recently in August 2016 in [place] which showed patent stents at the time. There was 30% lesion in the mid LAD. Ejection fraction was 55% with evidence of mild to moderate diastolic dysfunction. She also has history of hypertension, COPD and diabetes mellitus. This patient mainly comes with complaints of pain in the left shoulder and also left scapular area and with radiation to the arm. The pain is increased on movements of the shoulder. There is tenderness in the upper scapular area. The pain appears to be atypical and muscular skeletal. EKG did not reveal any acute changes. Cardiac enzymes are pending. If the cardiac enzymes are negative, no further cardiac workup is needed. Patient could be discharged home and have follow-up with Dr. CHARISSA Strong as an outpatient Review of Systems As per the chart Past Medical History Past Medical History: Cancer, Heart Failure, COPD, Diabetes Mellitus, GERD/Reflux, Hypertension, Osteoarthritis (OA), Sleep Apnea/CPAP/BIPAP Additional Past Medical History / Comment(s): CPAP WITH OXYGEN, SKIN CANCER , DIET CONTROLLED DIABETIC , cataracts, past fall fx lt arm. had a pne vaccine with in last 2 years not sure of date, verse writer unable to verify date at time of admit. History of Any Multi-Drug Resistant Organisms: None Reported Past Surgical History: Appendectomy, Back Surgery, Heart Catheterization With Stent, Joint Replacement, Orthopedic Surgery Additional Past Surgical History / Comment(s): bilateral hip replacement, right knee replacement, two back surgeries, total 6 cardiac stents Past Anesthesia/Blood Transfusion Reactions: No Reported Reaction Date of Last Stent Placement:: 2010 Smoking Status: Former smoker - Past Family History Mother Family Medical History: CVA/TIA, Diabetes Mellitus, Myocardial Infarction ([place]) Father Family Medical History: CVA/TIA, Myocardial Infarction ([place]) Sister(s) Family Medical History: Cancer Additional Family Medical History / Comment(s): 1 sister from lung cancer, 2 sisters had breast cancer Brother(s) Additional Family Medical History / Comment(s): 1 brother from lung cancer and had cardiac problems, another brother had heart problems and stroke Medications and Allergies Home Medications Medication Instructions Recorded Confirmed Type Clopidogrel [Plavix] 75 mg PO HS 02/17/18 11/30/18 History Furosemide [Lasix] 40 mg PO BID 02/17/18 11/30/18 History Lisinopril [Zestril] 10 mg PO HS 02/17/18 11/30/18 History Omeprazole 20 mg PO DAILY 02/17/18 11/30/18 History Rosuvastatin Calcium [Crestor] 40 mg PO HS 02/17/18 11/30/18 History amLODIPine [Norvasc] 5 mg PO HS 02/17/18 11/30/18 History Budesonide [Pulmicort] 0.5 mg INHALATION RT-BID 02/23/18 11/30/18 History Ipratropium-Albuterol Nebulize 3 ml INHALATION RT-QID PRN 02/23/18 11/30/18 History [Duoneb 0.5 mg-3 mg/3 ml Soln] Albuterol Sulfate [Proair 2 puff PO RT-Q4H PRN 03/16/18 11/30/18 History Respiclick] ALPRAZolam [Xanax] 0.5 mg PO BID PRN 03/20/18 11/30/18 History Montelukast Sodium [Singulair] 10 mg PO HS 03/20/18 11/30/18 History Nitroglycerin Sl Tabs [Nitrostat] 0.4 mg PO Q5M PRN 03/20/18 11/30/18 History Melatonin 6 mg PO HS tablet 03/25/18 11/30/18 Rx Metoprolol Tartrate [Lopressor] 12.5 mg PO DAILY 09/22/18 11/30/18 History Allergies Allergy/AdvReac Type Severity Reaction Status Date / Time clavulanic acid Allergy Unknown Verified 11/30/18 07:37 diclofenac [From Voltaren] Allergy Unknown Verified 11/30/18 07:37 isosorbide [From Imdur] Allergy Unknown Verified 11/30/18 07:37 levofloxacin [From Levaquin] Allergy Swelling Verified 11/30/18 07:37 metformin Allergy Unknown Verified 11/30/18 07:37 NSAIDS (Non-Steroidal Allergy Unknown Verified 11/30/18 07:37 Anti-Inflamma Penicillins Allergy Unknown Verified 11/30/18 07:37 prednisone Allergy VERY HYPER Verified 11/30/18 07:37 FEELING, EXHAUSTED Quinolones Allergy Unknown Verified 11/30/18 07:37 tramadol [From Ultram] Allergy Unknown Verified 11/30/18 07:37 amoxicillin [From Augmentin] AdvReac Headache Verified 11/30/18 07:37 aspirin AdvReac Headache Verified 11/30/18 07:37 gabapentin AdvReac Headache Verified 11/30/18 07:37 meloxicam [From Mobic] AdvReac Headache Verified 11/30/18 07:37 nabumetone [From Relafen] AdvReac Headache Verified 11/30/18 07:37 nickel AdvReac Headache Verified 11/30/18 07:37 ranolazine [From Ranexa] AdvReac Headache Verified 11/30/18 07:37 Physical Exam Vitals: Vital Signs Temp Pulse Pulse Resp BP BP Pulse Ox 11/30/18 07:20 60 11/30/18 07:05 60 11/30/18 06:00 98.0 F 61 16 108/62 96 11/30/18 04:00 60 18 111/63 98 11/30/18 03:00 60 18 111/63 96 11/30/18 02:36 76 16 118/74 98 11/30/18 01:31 98.2 F 73 20 116/67 94 L Intake and Output 11/29/18 11/30/18 11/30/18 22:59 06:59 14:59 Other: # Voids 1 Weight 57.697 kg GENERAL EXAM: Patient is alert and oriented and doesn't appear to be in any acute distress HEENT: Normocephalic. Normal reaction of pupils, equal size, normal range of extraocular motion. No erythema or exudates in the throat. NECK: No masses, no nuchal rigidity. CHEST: No chest wall deformity. LUNGS: [Equal air entry with no crackles or wheeze.] HEART: [S1 and S2 normal with no audible mumurs or gallops. Regular rhythm, femorals equal on both sides..] ABDOMEN: No hepatosplenomegaly, normal bowel sounds, no guarding or rigidity. SKIN: No rashes CENTRAL NERVOUS SYSTEM: No focal deficits. EXTREMITIES: [No cyanosis, clubbing or edema.] Results 11/30/18 01:51 11/30/18 01:51 Cardiac Enzymes 11/30/18 11/30/18 Range/Units 01:51 01:51 AST 25 (14-36) U/L Troponin I <0.012 (0.000-0.034) ng/mL Coagulation 11/30/18 Range/Units 01:51 PT 9.4 (9.0-12.0) sec APTT 24.3 (22.0-30.0) sec CBC 11/30/18 Range/Units 01:51 WBC 9.6 (3.8-10.6) k/uL RBC 5.37 (3.80-5.40) m/uL Hgb 15.1 (11.4-16.0) gm/dL Hct 46.8 H (34.0-46.0) % Plt Count 249 (150-450) k/uL Comprehensive Metabolic Panel 11/30/18 Range/Units 01:51 Sodium 138 (137-145) mmol/L Potassium 3.8 (3.5-5.1) mmol/L Chloride 98 (98-107) mmol/L Carbon Dioxide 29 (22-30) mmol/L BUN 19 H (7-17) mg/dL Creatinine 0.92 (0.52-1.04) mg/dL Glucose 101 H (74-99) mg/dL Calcium 10.3 H (8.4-10.2) mg/dL AST 25 (14-36) U/L ALT 26 (9-52) U/L Alkaline Phosphatase 86 (38-126) U/L Total Protein 7.1 (6.3-8.2) g/dL Albumin 4.5 (3.5-5.0) g/dL Current Medications Generic Name Dose Route Start Last Admin Trade Name Freq PRN Reason Stop Dose Admin Albuterol/Ipratropium 3 ml 11/30/18 05:57 11/30/18 07:04 Duoneb 0.5 Mg-3 Mg/3 Ml Soln INHALATION 3 ml RT-Q2H PRN Administration Shortness Of Breath Or Wheezing Aspirin 325 mg 12/01/18 09:00 Aspirin PO DAILY EVELIA Budesonide 0.5 mg 11/30/18 08:00 11/30/18 07:04 Pulmicort INHALATION 0.5 mg RT-BID EVELIA Administration Heparin Sodium (Porcine) 5,000 unit 11/30/18 09:00 Heparin SQ Q12HR EVELIA Nitroglycerin 0.5 inch 11/30/18 06:00 Nitro-Bid Oint TOPICAL Q6HR EVELIA Intake and Output 11/29/18 11/30/18 11/30/18 22:59 06:59 14:59 Other: # Voids 1 Weight 57.697 kg 11/30/18 01:51 11/30/18 01:51 EKG Interpretations (text) Sinus rhythm without acute changes Assessment and Plan (1) Left shoulder pain Current Visit: Yes Status: Acute Code(s): M25.512 - PAIN IN LEFT SHOULDER SNOMED Code(s): 92017132 (2) CAD (coronary artery disease) Current Visit: Yes Status: Acute Code(s): I25.10 - ATHSCL HEART DISEASE OF [place] CORONARY ARTERY W/O ANG PCTRS SNOMED Code(s): 17525101 (3) Hypertension, essential Current Visit: Yes Status: Acute Code(s): I10 - ESSENTIAL (PRIMARY) HYPERTENSION SNOMED Code(s): 89981487 (4) Diabetes mellitus Current Visit: Yes Status: Acute Code(s): E11.9 - TYPE 2 DIABETES MELLITUS WITHOUT COMPLICATIONS SNOMED Code(s): 23110713 Plan: Her pains appear to be more muscular skeletal local in nature. Doesn't appear to be angina. EKGs are negative. one set of enzymes negative. If subsequent enzymes studies are negative, no further cardiac workup at this time. May require orthopedic consult for the left shoulder pain
--- NOTE | 2018-11-30 11:55 | P.HPIM ---
History of Present Illness H&P Date: 11/30/18 this will serve both an H&P and Discharge summary This is a pleasant 78-year-old lady patient of Dr. Aristeo Nix. She has underlying history of COPD, chronic diastolic CHF, CAD, hypertension, hype rlipidemia, diabetes mellitus type 2, sleep apnea. admitted to the emergency room secondary toleft shoulder pain, left neck pain, pain in the shoulders related to movement, as well as anterior chest discomfort. Patient has had a cardiac cath and stent placed in [place] stents placed on the circumflex artery and right coronary artery, the stents were patent at that time, there is 30% lesion mid LAD, ejection fraction was 55% with mild to moderate diastolic dysfunction, patient was admitted through the emergency room secondary to the above complaints. Emergency room, EKG did not reveal any acute changes, troponinstimesnegative, lipase normal, proBNP of 467,patient was seen by cardiology showed she, be ready for which she thought this would be like more costochondritis and shoulder ar thritis pain, he recommended for her to see a rheumatologistpost discharge. Were offering her some lidocaine to be applied as the patient has NSAID sensitivities including diclofenac, tramadol, with GI intolerances Review of Systems Constitutional: Reports as per HPI, Denies anorexia, Denies chills, Denies chronic headaches, Denies chronic pain, Denies daytime sleepiness, Denies fatigue, Denies fever, Denies lethargy, Denies malaise, Denies night sweats, Denies poor appetite, Denies sweats, Denies weakness, Denies weight gain, Denies weight loss Ears, nose, mouth and throat: Reports as per HPI, Denies ant. neck pain, Denies bleeding gums, Denies dental pain, Denies dysphagia, Denies epistaxis, Denies headache, Denies hoarseness, Denies mouth pain, Denies nasal congestion, Denies nasal discharge, Denies neck fullness/pressure, Denies neck lump, Denies nose pain, Denies odynophagia, Denies post-nasal drip, Denies sinus pain, Denies sinus pressure, Denies swelling in mouth, Denies swelling in throat, Denies sore throat, Denies vertigo, Denies voice changes Cardiovascular: Reports as per HPI, Reports chest pain Respiratory: Reports as per HPI, Denies congestion, Denies cough, Denies cough with sputum, Denies dyspnea, Denies excessive sputum, Denies hemoptysis, Denies home oxygen, Denies pain, Denies pain on inspiration, Denies pleurisy, Denies respiratory infections, Denies sleep apnea, Denies snoring, Denies wheezing Gastrointestinal: Reports as per HPI, Denies abdominal pain, Denies belching, Denies bloating, Denies BRBPR, Denies change in bowel habits, Denies coffee ground emesis, Denies constipation, Denies diarrhea, Denies dyspepsia, Denies early satiety, Denies excessive gas, Denies heartburn, Denies hematemesis, Denies hematochezia, Denies indigestion, Denies jaundice, Denies lactose intolerance, Denies loss of appetite, Denies melena, Denies nausea, Denies vomiting Genitourinary: Reports as per HPI Menstruation: Reports as per HPI Musculoskeletal: Reports as per HPI, Reports limitation of motion, Reports morning stiffness Musculoskeletal: bilateral: hand pain, hand stiffness, hip pain, hip stiffness, shoulder pain, shoulder stiffness Integumentary: Reports as per HPI, Denies acne, Denies boils, Denies brittle nails, Denies change in hair/nails, Denies color changes, Denies darkening of skin, Denies depigmentation, Denies dryness, Denies foot/leg ulcers, Denies growths, Denies hirsutism, Denies lesions, Denies onychomycosis, Denies pruritus, Denies rash, Denies sores, Denies striae, Denies unusual bruising, Denies wounds Neurological: Reports as per HPI, Reports gait dysfunction, Denies aphasia, Denies ataxia, Denies balance difficulties, Denies burning pain, Denies change in mentation, Denies change in smell/taste, Denies change in speech, Denies confusion, Denies convulsions, Denies double vision, Denies head injury, Denies headaches, Denies hearing difficulties, Denies lack of coordination, Denies loss of vision, Denies memory loss, Denies migraines, Denies motor disturbance, Denies numbness, Denies paralysis, Denies paresthesias, Denies seizures, Denies sensory deficit, Denies spasticity, Denies syncope, Denies tic, Denies tingling, Denies transient paralysis, Denies tremors, Denies vertigo, Denies weakness, Denies visual changes Psychiatric: Reports as per HPI, Denies anhedonia, Denies anxiety, Denies anxiety attacks, Denies change in appetite, Denies change in libido, Denies change in sleep habits, Denies confusion, Denies depression, Denies difficulty concentrating, Denies disorientation, Denies hallucinations, Denies hopelessness, Denies hypersomnia, Denies insomnia, Denies irritability, Denies memory loss, Denies mood swings, Denies paranoia, Denies sadness/tearfulness, Denies sleep disturbances, Denies suicidal ideation Endocrine: Reports as per HPI Hematologic/Lymphatic: Reports as per HPI Allergic/Immunologic: Reports as per HPI Past Medical History Past Medical History: Cancer, Heart Failure, COPD, Diabetes Mellitus, GERD/Reflux, Hypertension, Osteoarthritis (OA), Sleep Apnea/CPAP/BIPAP Additional Past Medical History / Comment(s): CPAP WITH OXYGEN, SKIN CANCER , DIET CONTROLLED DIABETIC , cataracts, past fall fx lt arm. had a pne vaccine with in last 2 years not sure of date, ticket writer unable to verify date at time of admit. History of Any Multi-Drug Resistant Organisms: None Reported Past Surgical History: Appendectomy, Back Surgery, Heart Catheterization With Stent, Joint Replacement, Orthopedic Surgery Additional Past Surgical History / Comment(s): bilateral hip replacement, right knee replacement, two back surgeries, total 6 cardiac stents Past Anesthesia/Blood Transfusion Reactions: No Reported Reaction Date of Last Stent Placement:: 2010 Smoking Status: Former smoker - Past Family History Mother Family Medical History: CVA/TIA, Diabetes Mellitus, Myocardial Infarction ([place]) Father Family Medical History: CVA/TIA, Myocardial Infarction ([place]) Sister(s) Family Medical History: Cancer Additional Family Medical History / Comment(s): 1 sister from lung cancer, 2 sisters had breast cancer Brother(s) Additional Family Medical History / Comment(s): 1 brother from lung cancer and had cardiac problems, another brother had heart problems and stroke Medications and Allergies Home Medications Medication Instructions Recorded Confirmed Type Clopidogrel [Plavix] 75 mg PO HS 02/17/18 11/30/18 History Lisinopril [Zestril] 10 mg PO HS 02/17/18 11/30/18 History Rosuvastatin Calcium [Crestor] 40 mg PO HS 02/17/18 11/30/18 History amLODIPine [Norvasc] 5 mg PO HS 02/17/18 11/30/18 History Budesonide [Pulmicort] 0.5 mg INHALATION RT-BID 02/23/18 11/30/18 History Ipratropium-Albuterol Nebulize 3 ml INHALATION RT-QID PRN 02/23/18 11/30/18 History [Duoneb 0.5 mg-3 mg/3 ml Soln] Albuterol Sulfate [Proair 2 puff PO RT-Q4H PRN 03/16/18 11/30/18 History Respiclick] ALPRAZolam [Xanax] 0.25 - 0.5 mg PO BID PRN 03/20/18 11/30/18 History Montelukast Sodium [Singulair] 10 mg PO HS 03/20/18 11/30/18 History Nitroglycerin Sl Tabs [Nitrostat] 0.4 mg PO Q5M PRN 03/20/18 11/30/18 History Melatonin 6 mg PO HS tablet 03/25/18 11/30/18 Rx Metoprolol Tartrate [Lopressor] 12.5 mg PO DAILY 09/22/18 11/30/18 History Lidocaine [Lidocaine 3% Topical 1 applic TOPICAL Q4H PRN #100 gram 11/30/18 Rx Cream] Allergies Allergy/AdvReac Type Severity Reaction Status Date / Time clavulanic acid Allergy Unknown Verified 11/30/18 07:37 diclofenac [From Voltaren] Allergy Unknown Verified 11/30/18 07:37 isosorbide [From Imdur] Allergy Unknown Verified 11/30/18 07:37 levofloxacin [From Levaquin] Allergy Swelling Verified 11/30/18 07:37 metformin Allergy Unknown Verified 11/30/18 07:37 NSAIDS (Non-Steroidal Allergy Unknown Verified 11/30/18 07:37 Anti-Inflamma Penicillins Allergy Unknown Verified 11/30/18 07:37 prednisone Allergy VERY HYPER Verified 11/30/18 07:37 FEELING, EXHAUSTED Quinolones Allergy Unknown Verified 11/30/18 07:37 tramadol [From Ultram] Allergy Unknown Verified 11/30/18 07:37 amoxicillin [From Augmentin] AdvReac Headache Verified 11/30/18 07:37 aspirin AdvReac Headache Verified 11/30/18 07:37 gabapentin AdvReac Headache Verified 11/30/18 07:37 meloxicam [From Mobic] AdvReac Headache Verified 11/30/18 07:37 nabumetone [From Relafen] AdvReac Headache Verified 11/30/18 07:37 nickel AdvReac Headache Verified 11/30/18 07:37 ranolazine [From Ranexa] AdvReac Headache Verified 11/30/18 07:37 Physical Exam Vitals: Vital Signs Temp Pulse Pulse Resp BP BP Pulse Ox 11/30/18 07:20 60 11/30/18 07:05 60 11/30/18 06:00 98.0 F 61 16 108/62 96 11/30/18 04:00 60 18 111/63 98 11/30/18 03:00 60 18 111/63 96 11/30/18 02:36 76 16 118/74 98 11/30/18 01:31 98.2 F 73 20 116/67 94 L Intake and Output 11/29/18 11/30/18 11/30/18 22:59 06:59 14:59 Other: # Voids 1 Weight 57.697 kg - Constitutional General appearance: average body habitus, cooperative, no acute distress - EENT Eyes: anicteric sclerae, EOMI ENT: NA/AT, normal oropharynx - Neck Neck: normal ROM - Respiratory Respiratory: bilateral: CTA, negative: diminished, dullness, rales - Cardiovascular Rhythm: regular Heart sounds: normal: S1, S2 Abnormal Heart Sounds: no systolic murmur, no diastolic murmur, no rub, no S3 Gallop, no S4 Gallop, no click, no other - Gastrointestinal General gastrointestinal: normal bowel sounds, soft - Integumentary Integumentary: decreased turgor, normal - Neurologic Neurologic: CNII-XII intact - Musculoskeletal Musculoskeletal: gait normal - Psychiatric Psychiatric: A&O x's 3, appropriate affect Results CBC & Chem 7: 11/30/18 01:51 11/30/18 01:51 Labs: Abnormal Lab Results - Last 24 Hours (Table) 11/30/18 11/30/18 11/30/18 Range/Units 01:51 01:51 01:51 Hct 46.8 H (34.0-46.0) % D-Dimer 0.78 H (<0.60) mg/L FEU BUN 19 H (7-17) mg/dL Glucose 101 H (74-99) mg/dL POC Glucose (mg/dL) (75-99) mg/dL Calcium 10.3 H (8.4-10.2) mg/dL 11/30/18 Range/Units 06:56 Hct (34.0-46.0) % D-Dimer (<0.60) mg/L FEU BUN (7-17) mg/dL Glucose (74-99) mg/dL POC Glucose (mg/dL) 100 H (75-99) mg/dL Calcium (8.4-10.2) mg/dL Laboratory Results WBC 9.6 k/uL (3.8-10.6) 11/30/18 01:51 RBC 5.37 m/uL (3.80-5.40) 11/30/18 01:51 Hgb 15.1 gm/dL (11.4-16.0) 11/30/18 01:51 Hct 46.8 % (34.0-46.0) H 11/30/18 01:51 MCV 87.2 fL (80.0-100.0) 11/30/18 01:51 MCH 28.2 pg (25.0-35.0) 11/30/18 01:51 MCHC 32.3 g/dL (31.0-37.0) 11/30/18 01:51 RDW 14.2 % (11.5-15.5) 11/30/18 01:51 Plt Count 249 k/uL (150-450) 11/30/18 01:51 Neutrophils % 73 % 11/30/18 01:51 Lymphocytes % 19 % 11/30/18 01:51 Monocytes % 6 % 11/30/18 01:51 Eosinophils % 1 % 11/30/18 01:51 Basophils % 0 % 11/30/18 01:51 Neutrophils # 7.0 k/uL (1.3-7.7) 11/30/18 01:51 Lymphocytes # 1.8 k/uL (1.0-4.8) 11/30/18 01:51 Monocytes # 0.5 k/uL (0-1.0) 11/30/18 01:51 Eosinophils # 0.1 k/uL (0-0.7) 11/30/18 01:51 Basophils # 0.0 k/uL (0-0.2) 11/30/18 01:51 PT 9.4 sec (9.0-12.0) 11/30/18 01:51 INR 0.8 (<1.2) 11/30/18 01:51 APTT 24.3 sec (22.0-30.0) 11/30/18 01:51 D-Dimer 0.78 mg/L FEU (<0.60) H 11/30/18 01:51 Sodium 138 mmol/L (137-145) 11/30/18 01:51 Potassium 3.8 mmol/L (3.5-5.1) 11/30/18 01:51 Chloride 98 mmol/L (98-107) 11/30/18 01:51 Carbon Dioxide 29 mmol/L (22-30) 11/30/18 01:51 Anion Gap 11 mmol/L 11/30/18 01:51 BUN 19 mg/dL (7-17) H 11/30/18 01:51 Creatinine 0.92 mg/dL (0.52-1.04) 11/30/18 01:51 Est GFR (CKD-EPI)AfAm 70 (>60 ml/min/1.73 sqM) 11/30/18 01:51 Est GFR (CKD-EPI)NonAf 61 (>60 ml/min/1.73 sqM) 11/30/18 01:51 Glucose 101 mg/dL (74-99) H 11/30/18 01:51 POC Glucose (mg/dL) 100 mg/dL (75-99) H 11/30/18 06:56 POC Glu Transfer And Line Up Worker Toni Garcia 11/30/18 06:56 Calcium 10.3 mg/dL (8.4-10.2) H 11/30/18 01:51 Magnesium 2.0 mg/dL (1.6-2.3) 11/30/18 01:51 Total Bilirubin 0.6 mg/dL (0.2-1.3) 11/30/18 01:51 AST 25 U/L (14-36) 11/30/18 01:51 ALT 26 U/L (9-52) 11/30/18 01:51 Alkaline Phosphatase 86 U/L (38-126) 11/30/18 01:51 Troponin I <0.012 ng/mL (0.000-0.034) 11/30/18 08:24 Total Protein 7.1 g/dL (6.3-8.2) 11/30/18 01:51 Albumin 4.5 g/dL (3.5-5.0) 11/30/18 01:51 Amylase 83 U/L (30-110) 11/30/18 01:51 Lipase 148 U/L (23-300) 11/30/18 01:51 Thrombosis Risk Factor Assmnt - Choose All That Apply Each Risk Factor Represents 3 Points: Age 75 years or older Thrombosis Risk Factor Assessment Total Risk Factor Score: 3 Thrombosis Risk Factor Assessment Level: Moderate Risk Assessment and Plan Plan: 1. costochondritis with shoulder arthritis left worse than right, patient was cleared by cardiology for the atypical chest pain, to be discharged to home with no medication changes for her cardiac meds, lidocaine ointment to be applied, patient has sensitivities to oral NSAID, and is not recommended post discharge 3. History of CAD with multiple stent placement in the past, medical managment currently on plavix crestor norvasc lisinoprilfollow-up with Dr. CHARISSA Strong as an outpatient 4. Chronic diastolic heart failure, on lasix 40 bid no adjustment of diuretics 5. Diabetes mellitus type 2 not on any medication, continue NovoLog scale 6 secondary Pulmonary hypertension severe. RV systolic pressure of 50 7 Chronic hypoxemic respiratory failure requiring supplemental oxygen DVT prophylaxis GI prophylaxis heparin subcu Protonix discharge to home on stable condition
[2018-12-01] MEDS ORDERED: ASPIRIN 325 MG TAB PO SCH (09:00)
== END 2018-11-30 11:23 | disposition home or self-care (01) ==
LOC: EC 01:29 → 1SOBS 04:36
PROVIDERS: ADMIT Family Medicine; ATTEND Family Medicine
DX: R07.89 Other chest pain (principal); M94.0 Chondrocostal junction syndrome [Tietze]; R79.89 Other specified abnormal findings of blood chemistry; M19.012 Primary osteoarthritis, left shoulder; I27.29 Other secondary pulmonary hypertension; J96.11 Chronic respiratory failure with hypoxia; J44.9 Chronic obstructive pulmonary disease, unspecified; I11.0 Hypertensive heart disease with heart failure; I50.32 Chronic diastolic (congestive) heart failure; G47.30 Sleep apnea, unspecified; K21.9 Gastro-esophageal reflux disease without esophagitis; E11.9 Type 2 diabetes mellitus without complications; M19.90 Unspecified osteoarthritis, unspecified site; H26.9 Unspecified cataract; F41.9 Anxiety disorder, unspecified; F32.9 Major depressive disorder, single episode, unspecified; Z99.81 Dependence on supplemental oxygen; I25.10 Atherosclerotic heart disease of native coronary artery without angina pectoris; E78.5 Hyperlipidemia, unspecified; M54.2 Cervicalgia; Z79.02 Long term (current) use of antithrombotics/antiplatelets; Z79.51 Long term (current) use of inhaled steroids; Z79.899 Other long term (current) drug therapy; Z88.6 Allergy status to analgesic agent; Z88.1 Allergy status to other antibiotic agents; Z88.5 Allergy status to narcotic agent; Z88.0 Allergy status to penicillin; Z91.048 Other nonmedicinal substance allergy status; Z85.828 Personal history of other malignant neoplasm of skin; Z87.81 Personal history of (healed) traumatic fracture; Z96.651 Presence of right artificial knee joint; Z96.643 Presence of artificial hip joint, bilateral; Z95.5 Presence of coronary angioplasty implant and graft; Z90.49 Acquired absence of other specified parts of digestive tract; Z87.891 Personal history of nicotine dependence; Z82.49 Family history of ischemic heart disease and other diseases of the circulatory system; Z83.3 Family history of diabetes mellitus; Z82.3 Family history of stroke; Z80.1 Family history of malignant neoplasm of trachea, bronchus and lung; Z80.3 Family history of malignant neoplasm of breast
CPT/HCPCS: 96374; 99285; 36415; 94640 ×2; 93005; 85379; 80053; 82150; 83690; 83735; 84484; 85025; 85610; 85730; 71045; G0378; J2270

== ENCOUNTER 2019-02-21 07:17 | Emergency (ER) | payer MEDICARE ==
[2019-02-21] MEDS ORDERED: SODIUM CHLORIDE 0.9% 1,000 ML IV STA (07:38)
[2019-02-21] MEDS ORDERED: IPRATROPIUM-ALBUTEROL 3 ML NEB INHALATION STA ×2 (07:38→09:11)
[2019-02-21] MEDS ORDERED: methylPREDNISolone SOD SUCCI 125 MG/2 ML VIAL IV STA (07:38)
--- NOTE | 2019-02-21 07:41 | ED ---
SOB HPI - General Chief Complaint: Shortness of Breath Stated Complaint: SOB Time Seen by Provider: 02/21/19 07:28 Source: patient, family, RN notes reviewed Mode of arrival: wheelchair Limitations: no limitations - History of Present Illness Initial Comments: This is a 79-year-old female with a history of COPD and asthma who states she's been fighting cold symptoms for about 2 weeks using [id number] medications she states last day or so those got worse with exertional dyspnea and shortness of breath at rest no fevers chills or sweats but she is coughing up yellow thick phlegm no chest pain reported no peripheral edema no palpitations no other modifying factors. He does have medication at home including rescue inhalers and nebulizers that are not helping very much. MD Complaint: shortness of breath, cough - Related Data Home Medications Medication Instructions Recorded Confirmed Clopidogrel [Plavix] 75 mg PO HS 02/17/18 02/21/19 Lisinopril [Zestril] 10 mg PO HS 02/17/18 02/21/19 Rosuvastatin Calcium [Crestor] 40 mg PO HS 02/17/18 02/21/19 amLODIPine [Norvasc] 5 mg PO HS 02/17/18 02/21/19 Budesonide [Pulmicort] 0.5 mg INHALATION RT-BID 02/23/18 02/21/19 Ipratropium-Albuterol Nebulize 3 ml INHALATION RT-QID PRN 02/23/18 02/21/19 [Duoneb 0.5 mg-3 mg/3 ml Soln] Albuterol Sulfate [Proair 2 puff INHALATION RT-Q4H PRN 03/16/18 02/21/19 Respiclick] ALPRAZolam [Xanax] 0.25 - 0.5 mg PO BID PRN 03/20/18 02/21/19 Montelukast Sodium [Singulair] 10 mg PO HS 03/20/18 02/21/19 Nitroglycerin Sl Tabs [Nitrostat] 0.4 mg PO Q5M PRN 03/20/18 02/21/19 Metoprolol Tartrate [Lopressor] 12.5 mg PO DAILY 09/22/18 02/21/19 Meclizine [Antivert] 25 mg PO TID PRN 02/21/19 02/21/19 Previous Rx's Medication Instructions Recorded Melatonin 6 mg PO HS tablet 03/25/18 Azithromycin [Zithromax Z-pack] 250 mg PO DIRECTED #6 tab 02/21/19 Allergies Allergy/AdvReac Type Severity Reaction Status Date / Time clavulanic acid Allergy Unknown Verified 02/21/19 09:09 diclofenac [From Voltaren] Allergy Unknown Verified 02/21/19 09:09 isosorbide [From Imdur] Allergy Unknown Verified 02/21/19 09:09 levofloxacin [From Levaquin] Allergy Swelling Verified 02/21/19 09:09 metformin Allergy Unknown Verified 02/21/19 09:09 NSAIDS (Non-Steroidal Allergy Unknown Verified 02/21/19 09:09 Anti-Inflamma Penicillins Allergy Unknown Verified 02/21/19 09:09 Quinolones Allergy Unknown Verified 02/21/19 09:09 tramadol [From Ultram] Allergy Unknown Verified 02/21/19 09:09 amoxicillin [From Augmentin] AdvReac Headache Verified 02/21/19 09:09 aspirin AdvReac Headache Verified 02/21/19 09:09 gabapentin AdvReac Headache Verified 02/21/19 09:09 meloxicam [From Mobic] AdvReac Headache Verified 02/21/19 09:09 nabumetone [From Relafen] AdvReac Headache Verified 02/21/19 09:09 nickel AdvReac Headache Verified 02/21/19 09:09 prednisone AdvReac VERY HYPER Verified 02/21/19 09:09 FEELING, EXHAUSTED ranolazine [From Ranexa] AdvReac Headache Verified 02/21/19 09:09 Review of Systems ROS Statement: Those systems with pertinent positive or pertinent negative responses have been documented in the HPI. ROS Other: All systems not noted in ROS Statement are negative. Past Medical History Past Medical History: Cancer, Heart Failure, COPD, Diabetes Mellitus, GERD/Reflux, Hypertension, Osteoarthritis (OA), Sleep Apnea/CPAP/BIPAP Additional Past Medical History / Comment(s): CPAP WITH OXYGEN, SKIN CANCER , DIET CONTROLLED DIABETIC , cataracts, past fall fx lt arm. 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 History of Any Multi-Drug Resistant Organisms: None Reported Past Surgical History: Appendectomy, Back Surgery, Heart Catheterization With Stent, Joint Replacement, Orthopedic Surgery Additional Past Surgical History / Comment(s): bilateral hip replacement, right knee replacement, two back surgeries, total 6 cardiac stents Past Anesthesia/Blood Transfusion Reactions: No Reported Reaction Date of Last Stent Placement:: 2010 Past Psychological History: Anxiety, Depression Smoking Status: Former smoker - Past Family History Mother Family Medical History: CVA/TIA, Diabetes Mellitus, Myocardial Infarction ([place]) Father Family Medical History: CVA/TIA, Myocardial Infarction ([place]) Sister(s) Family Medical History: Cancer Additional Family Medical History / Comment(s): 1 sister from lung cancer, 2 sisters had breast cancer Brother(s) Additional Family Medical History / Comment(s): 1 brother from lung cancer and had cardiac problems, another brother had heart problems and stroke General Exam - General Exam Comments Initial Comments: This is a well-developed sec appearing female who is awake alert oriented 3 Limitations: no limitations General appearance: alert, anxious Head exam: Present: atraumatic, normocephalic, normal inspection Eye exam: Present: normal appearance, PERRL, EOMI. Absent: scleral icterus, conjunctival injection, periorbital swelling ENT exam: Present: mucous membranes dry Neck exam: Present: normal inspection, full ROM, other (No stridor JVD or bruits). Absent: tenderness, meningismus, lymphadenopathy Respiratory exam: Present: wheezes, decreased breath sounds. Absent: respiratory distress, rales, rhonchi, stridor Cardiovascular Exam: Present: regular rate, normal rhythm, normal heart sounds. Absent: systolic murmur, diastolic murmur, rubs, gallop, clicks GI/Abdominal exam: Present: soft, normal bowel sounds. Absent: distended, tenderness, guarding, rebound, rigid Extremities exam: Present: normal inspection, full ROM, normal capillary refill. Absent: tenderness, pedal edema, joint swelling, calf tenderness Back exam: Present: normal inspection Neurological exam: Present: alert, oriented X3, CN II-XII intact Psychiatric exam: Present: normal affect, normal mood Skin exam: Present: warm, dry, intact, normal color. Absent: rash Course Vital Signs 02/21/19 02/21/19 02/21/19 07:23 07:50 07:59 Temperature 98.0 F Pulse Rate 71 62 63 Respiratory 24 Rate Blood Pressure 126/70 O2 Sat by Pulse 94 L Oximetry 02/21/19 02/21/19 09:36 09:50 Temperature Pulse Rate 59 L 60 Respiratory Rate Blood Pressure O2 Sat by Pulse Oximetry - Reevaluation(s) Reevaluation #1: 02/21/19 10:16 Evaluation patient reveals increased aeration with basilar crackles a repeat updraft was ordered Medical Decision Making - Medical Decision Making Patient did get marked improvement good aeration lung sounds are normal she does request go home she'll be placed on antibiotic she does not want steroids at this time she is a follow-up with her doctor return when necessary - Lab Data Result diagrams: 02/21/19 07:54 02/21/19 07:54 Lab Results 02/21/19 02/21/19 02/21/19 Range/Units 07:54 07:54 07:54 WBC 6.9 (3.8-10.6) k/uL RBC 5.12 (3.80-5.40) m/uL Hgb 14.8 (11.4-16.0) gm/dL Hct 44.8 (34.0-46.0) % MCV 87.4 (80.0-100.0) fL MCH 28.8 (25.0-35.0) pg MCHC 33.0 (31.0-37.0) g/dL RDW 13.8 (11.5-15.5) % Plt Count 211 (150-450) k/uL Neutrophils % 79 % Lymphocytes % 11 % Monocytes % 7 % Eosinophils % 0 % Basophils % 1 % Neutrophils # 5.4 (1.3-7.7) k/uL Lymphocytes # 0.8 L (1.0-4.8) k/uL Monocytes # 0.5 (0-1.0) k/uL Eosinophils # 0.0 (0-0.7) k/uL Basophils # 0.0 (0-0.2) k/uL PT (9.0-12.0) sec INR (<1.2) APTT (22.0-30.0) sec Sodium 142 (137-145) mmol/L Potassium 3.6 (3.5-5.1) mmol/L Chloride 105 (98-107) mmol/L Carbon Dioxide 27 (22-30) mmol/L Anion Gap 10 mmol/L BUN 14 (7-17) mg/dL Creatinine 0.66 (0.52-1.04) mg/dL Est GFR (CKD-EPI)AfAm >90 (>60 ml/min/1.73 sqM) Est GFR (CKD-EPI)NonAf 86 (>60 ml/min/1.73 sqM) Glucose 106 H (74-99) mg/dL Calcium 9.2 (8.4-10.2) mg/dL Magnesium 2.2 (1.6-2.3) mg/dL Total Bilirubin 0.6 (0.2-1.3) mg/dL AST 22 (14-36) U/L ALT 21 (9-52) U/L Alkaline Phosphatase 74 (38-126) U/L Creatine Kinase 74 (30-135) U/L Troponin I (0.000-0.034) ng/mL NT-Pro-B Natriuret Pep 205 pg/mL Total Protein 6.6 (6.3-8.2) g/dL Albumin 4.0 (3.5-5.0) g/dL 02/21/19 02/21/19 Range/Units 07:54 07:54 WBC (3.8-10.6) k/uL RBC (3.80-5.40) m/uL Hgb (11.4-16.0) gm/dL Hct (34.0-46.0) % MCV (80.0-100.0) fL MCH (25.0-35.0) pg MCHC (31.0-37.0) g/dL RDW (11.5-15.5) % Plt Count (150-450) k/uL Neutrophils % % Lymphocytes % % Monocytes % % Eosinophils % % Basophils % % Neutrophils # (1.3-7.7) k/uL Lymphocytes # (1.0-4.8) k/uL Monocytes # (0-1.0) k/uL Eosinophils # (0-0.7) k/uL Basophils # (0-0.2) k/uL PT 9.7 (9.0-12.0) sec INR 0.9 (<1.2) APTT 24.6 (22.0-30.0) sec Sodium (137-145) mmol/L Potassium (3.5-5.1) mmol/L Chloride (98-107) mmol/L Carbon Dioxide (22-30) mmol/L Anion Gap mmol/L BUN (7-17) mg/dL Creatinine (0.52-1.04) mg/dL Est GFR (CKD-EPI)AfAm (>60 ml/min/1.73 sqM) Est GFR (CKD-EPI)NonAf (>60 ml/min/1.73 sqM) Glucose (74-99) mg/dL Calcium (8.4-10.2) mg/dL Magnesium (1.6-2.3) mg/dL Total Bilirubin (0.2-1.3) mg/dL AST (14-36) U/L ALT (9-52) U/L Alkaline Phosphatase (38-126) U/L Creatine Kinase (30-135) U/L Troponin I <0.012 (0.000-0.034) ng/mL NT-Pro-B Natriuret Pep pg/mL Total Protein (6.3-8.2) g/dL Albumin (3.5-5.0) g/dL - EKG Data -: EKG Interpreted by Al EKG shows normal: sinus rhythm (Sinus rhythm with sinus arrhythmia rate was 75 MD interval 126 QRS duration 90 QT/QTC 420/[address] configuration) - Radiology Data Radiology results: report reviewed (Imaging shows no acute findings chronic changes seen), image reviewed Disposition Clinical Impression: Acute exacerbation of chronic obstructive pulmonary disease, Acute bronchitis Disposition: HOME SELF-CARE Condition: Good Instructions (If sedation given, give patient instructions): Acute Bronchitis (ED), COPD (Chronic Obstructive Pulmonary Disease) (ED) Additional Instructions: Medications sent here for your [facility] pharmacy Prescriptions: Azithromycin [Zithromax Z-pack] 250 mg PO DIRECTED #6 tab Is patient prescribed a controlled substance at d/c from ED?: No Referrals: Katlin Ruffin MD [Primary Care Provider] - 1-2 days
[2019-02-21 08:06] LABS: Basophils % (A) 1 %; Eosinophils % (A) 0 %; HCT 44.8 % (34.0-46.0); HGB 14.8 gm/dL (11.4-16.0); Lymphocytes # (A) 0.8 k/uL (1.0-4.8); Lymphocytes % (A) 11 %; MCH 28.8 pg (25.0-35.0); MCV 87.4 fL (80.0-100.0); Mean Platelet Volume 7.4; Monocytes # (A) 0.5 k/uL (0-1.0); Monocytes % (A) 7 %; Neutrophils # (A) 5.4 k/uL (1.3-7.7); Neutrophils % (A) 79 %; Platelet Count 211 k/uL (150-450); RBC 5.12 m/uL (3.80-5.40); RDW 13.8 % (11.5-15.5); WBC 6.9 k/uL (3.8-10.6)
[2019-02-21 08:15] LABS: ALT 21 U/L (9-52); AST 22 U/L (14-36); African American GFR (CKD) >90 (>60 ml/min/1.73 sqM); Alkaline Phosphatase 74 U/L (38-126); Anion Gap 10 mmol/L; Blood Urea Nitrogen 14 mg/dL (7-17); Calcium 9.2 mg/dL (8.4-10.2); Carbon Dioxide 27 mmol/L (22-30); Chloride 105 mmol/L (98-107); Creatine Kinase 74 U/L (30-135); Glucose 106 mg/dL (74-99); Magnesium 2.2 mg/dL (1.6-2.3); Potassium 3.6 mmol/L (3.5-5.1); Sodium 142 mmol/L (137-145); Total Bilirubin 0.6 mg/dL (0.2-1.3); Total Protein 6.6 g/dL (6.3-8.2)
[2019-02-21 08:22] LABS: INR 0.9 (<1.2); Partial Thromboplastin Time 24.6 sec (22.0-30.0); Prothrombin Time 9.7 sec (9.0-12.0)
--- NOTE | 2019-02-21 08:30 | XR ---
EXAMINATION TYPE: XR chest 2V DATE OF EXAM: 02/21/2019 COMPARISON: Chest x-ray November 30, 2018. CTA chest September 22, 2018. HISTORY: History of asthma and COPD with shortness of breath. TECHNIQUE: Frontal and lateral views of the chest are obtained. FINDINGS: There is chronic parenchymal changes bilaterally without suspicious new focal air space op acity, pleural effusion, or pneumothorax seen. The cardiac silhouette size remains within normal madrigal its with atherosclerotic change in the aortic knob. Underlying scoliotic curvature is present. Herald ing EKG leads are seen. IMPRESSION: Chronic parenchymal changes without acute pulmonary process.
[2019-02-21 11:33] VITALS: BP 141/63; PULSE 64; RESP 16; TEMP 97.9
== END 2019-02-21 11:33 | disposition home or self-care (01) ==
LOC: EC 07:17
DX: J44.0 Chronic obstructive pulmonary disease with (acute) lower respiratory infection (principal); J20.9 Acute bronchitis, unspecified; J44.1 Chronic obstructive pulmonary disease with (acute) exacerbation; I11.0 Hypertensive heart disease with heart failure; I50.9 Heart failure, unspecified; E11.9 Type 2 diabetes mellitus without complications; M19.90 Unspecified osteoarthritis, unspecified site; G47.30 Sleep apnea, unspecified; Z87.891 Personal history of nicotine dependence; Z88.0 Allergy status to penicillin; Z88.1 Allergy status to other antibiotic agents; Z88.5 Allergy status to narcotic agent; Z88.6 Allergy status to analgesic agent; Z88.8 Allergy status to other drugs, medicaments and biological substances; Z91.048 Other nonmedicinal substance allergy status; Z79.02 Long term (current) use of antithrombotics/antiplatelets; Z79.51 Long term (current) use of inhaled steroids; Z79.899 Other long term (current) drug therapy; Z96.643 Presence of artificial hip joint, bilateral; Z96.651 Presence of right artificial knee joint; Z95.5 Presence of coronary angioplasty implant and graft; Z85.828 Personal history of other malignant neoplasm of skin; Z99.81 Dependence on supplemental oxygen; Z99.89 Dependence on other enabling machines and devices; Z80.1 Family history of malignant neoplasm of trachea, bronchus and lung
CPT/HCPCS: 99285; 96374; 96361 ×3; 36415; 94640 ×2; 83880; 80053; 82550; 83735; 84484; 85025; 85610; 85730; 71046; J2930